=== PATIENT | male | born 1970 | race African-American/Black ===

== ENCOUNTER 2020-09-07 01:03 | Observation (INO) | payer MEDICAID ==
[~2020-09-07] VITALS: Ht 167.6 cm; Wt 96.5 kg
[2020-09-07] MEDS ORDERED: cloNIDine HCL 0.1 MG TAB ONE (01:36)
[2020-09-07] MEDS ORDERED: cloNIDine HCL 0.1 MG TAB PO ONE (02:00)
[2020-09-07 04:38] LABS: Basophils # (auto) 0 10 ^3/uL (0-0.2); Eosinophils # (auto) 0.3 10 ^3/uL (0-0.8); Monocytes # (auto) 0.7 10 ^3/uL (0-1.3); Neutrophils # (auto) 3.8 10 ^3/uL (1.6-8.6)
[2020-09-07 04:41] LABS: Urine Bacteria FEW /hpf (None Seen); Urine Blood 1+ /uL (Negative); Urine Hyaline Cast FEW /lpf (0 - 2); Urine WBC 1 /hpf (0 - 3)
[2020-09-07 04:42] LABS: Basophils % (auto) 0.5 % (0.0-2.0); Eosinophils % (auto) 4.5 % (0.0-7.0); Hematocrit 38.2 % (41.0-53.0); Hemoglobin 12.3 g/dL (13.5-17.5); Lymphocytes # (auto) 1.6 10 ^3/uL (0.4-5.4); Lymphocytes % (auto) 25.6 % (10.0-50.0); Mean Corpuscular Hgb Conc. 32.2 g/dL (32.0-36.0); Mean Corpuscular Volume 68.4 fL (80.0-100.0); Monocytes % (auto) 10.9 % (0.0-12.0); Neutrophils % (auto) 58.5 % (37.0-80.0); Nucleated Red Blood Cells % 0.1 %; Platelet Count (auto) 234 10^3/uL (140-450); Red Blood Cells 5.59 10^6/uL (4.5-5.90); Red Cell Distribution Width 17.7 % (11.8-14.3); White Blood Cell 6.4 10^3/uL (4.4-10.8)
[2020-09-07 04:58] LABS: Albumin 3.3 g/dL (3.4-5.0); BUN/Creatinine Ratio 14.4; Calcium 8.6 mg/dL (8.5-10.1)
[2020-09-07 04:59] LABS: INR 0.99 (0.9-1.15); Partial Thromboplastin Time 25.6 sec (23.0-31.2)
[2020-09-07 05:03] LABS: Bilirubin, Total 0.6 mg/dL (0.2-1.0); Total Protein 7.7 g/dL (6.4-8.2)
[2020-09-07 05:03] LABS: Alcohol, Urine < 3.0 mg/dL (0-10); Amphetamine Screen, Urine POSITIVE (NEGATIVE); Barbiturate Scree,Urine NEGATIVE (NEGATIVE); Benzodiazephine Screen, Urine NEGATIVE (NEGATIVE); Cannabinoid Screen, Urine NEGATIVE (NEGATIVE); Cocaine Screen, Urine NEGATIVE (NEGATIVE)
[2020-09-07 05:07] LABS: Potassium 2.7 mmol/L (3.5-5.1)
[2020-09-07 05:10] LABS: Opiate Scree,Urine NEGATIVE (NEGATIVE); Phencyclidine Screen, Urine NEGATIVE (NEGATIVE)
[2020-09-07] MEDS ORDERED: POTASSIUM EFFERVESENT TAB 25 MEQ PO ONE (05:15)
[2020-09-07] MEDS ORDERED: HYDROcodone-ACET 10/325MG TAB PO ONE (06:00)
[2020-09-07] MEDS ORDERED: FUROSEMIDE 20 MG/2 ML VIAL IV ONE (06:00)
[2020-09-07] MEDS ORDERED: ALLOPURINOL 300 MG TAB PO ONE (06:00)
[2020-09-07] MEDS ORDERED: ACETAMINOPHEN 325 MG TAB PO PRN (09:30)
[2020-09-07] MEDS ORDERED: NITROGLYCERIN 0.4 MG SL TAB SL PRN (09:30)
[2020-09-07] MEDS ORDERED: DOCUSATE SOD 100 MG CAP PO PRN (09:30)
[2020-09-07] MEDS ORDERED: HYDROcodone-ACET 5/325MG TAB PO PRN (09:30)
[2020-09-07] MEDS ORDERED: MORPHINE SULFATE 4 MG/ML SYR/VIAL IV PRN (09:30)
[2020-09-07] MEDS ORDERED: TEMAZEPAM 15 MG CAP PO PRN (09:30)
[2020-09-07] MEDS ORDERED: ONDANSETRON HCL 4 MG/2 ML VIAL IV PRN (09:30)
[2020-09-07] MEDS ORDERED: MORPHINE SULF INJ 2 MG/ML SYRINGE 1ML IV PRN (09:30)
[2020-09-07] MEDS ORDERED: ASPI81CH59 PO (09:36)
[2020-09-07] MEDS ORDERED: ATOR10TA52 PO (09:36)
[2020-09-07] MEDS ORDERED: FUR20T PO (09:36)
[2020-09-07] MEDS ORDERED: INDO25CA17 PO (09:36)
[2020-09-07] MEDS ORDERED: CARV6.2551 PO (09:36)
[2020-09-07] MEDS ORDERED: COLC1CAP PO (09:36)
[2020-09-07] MEDS ORDERED: LISI40TA11 PO (09:36)
[2020-09-07] MEDS ORDERED: AMLO5TAB15 PO (09:36)
[2020-09-07] MEDS ORDERED: ENOXAPARIN SOD 40 MG/0.4 ML SYRINGE SC SCH (10:00)
[2020-09-07] MEDS: FAMOTIDINE 20 MG TAB PO SCH ×2 (10:03→22:09)
[2020-09-07] MEDS ORDERED: POTASSIUM CHL 20 Meq TABLET PO ONE ×3 (11:30→21:30)
[2020-09-07] MEDS: HEPARIN DRIP/D5W 100UNITS/ML 250 ML IV SCH (11:30)
[2020-09-07 11:55] LABS: Basophils # (auto) 0 10 ^3/uL (0-0.2); Basophils % (auto) 0.8 % (0.0-2.0); Eosinophils # (auto) 0.4 10 ^3/uL (0-0.8); Lymphocytes # (auto) 1.8 10 ^3/uL (0.4-5.4); Monocytes # (auto) 0.6 10 ^3/uL (0-1.3)
[2020-09-07 12:01] LABS: Eosinophils % (auto) 6.5 % (0.0-7.0); Hematocrit 39.2 % (41.0-53.0); Hemoglobin 12.4 g/dL (13.5-17.5); Lymphocytes % (auto) 30.4 % (10.0-50.0); Mean Corpuscular Hemoglobin 21.6 pg (28.0-32.0); Mean Corpuscular Hgb Conc. 31.5 g/dL (32.0-36.0); Mean Corpuscular Volume 68.5 fL (80.0-100.0); Monocytes % (auto) 10.5 % (0.0-12.0); Neutrophils % (auto) 51.8 % (37.0-80.0); Nucleated Red Blood Cells % 0.1 %; Platelet Count (auto) 200 10^3/uL (140-450); Red Blood Cells 5.73 10^6/uL (4.5-5.90); Red Cell Distribution Width 17.8 % (11.8-14.3); White Blood Cell 5.8 10^3/uL (4.4-10.8)
[2020-09-07 12:14] LABS: INR 1.03 (0.9-1.15); Partial Thromboplastin Time 24.8 sec (23.0-31.2)
[2020-09-07] MEDS ORDERED: CARVEDILOL 3.125 MG TAB PO ONE (12:30)
--- NOTE | 2020-09-07 13:00 | NUR ---
Telemetry admit from ER TASHI SHEAER admitted to Telemetry unit after SBAR received. Patient oriented to JAM DREW RN primary RN, unit, room, bed, and unit policies regarding patient care and visiting hours. Patient now on continuous telemetry monitoring, tele box #60. Patient placed on bedside oxygen, weighed by bedscale and encouraged to call if they need something. All questions and concerns addressed, patient verbalized understanding.
[2020-09-07 17:00] VITALS: BP 158/75
[2020-09-07 17:18] LABS: Calcium 8.4 mg/dL (8.5-10.1)
[2020-09-07 17:20] LABS: BUN/Creatinine Ratio 14.3
[2020-09-07 17:23] LABS: Potassium 2.9 mmol/L (3.5-5.1)
[2020-09-07] MEDS: hydrALAZINE HCL 20 MG/ML VL IV PRN (17:40)
--- NOTE | 2020-09-07 18:00 | NUR ---
Call to Lab Call to Lab at this time. Scheduled PT/PTT for 1729 have not been drawn yet. Occupational Therapy Technician states she will notify web retailer.
--- NOTE | 2020-09-07 18:07 | NUR ---
Cardiology Consult Dr. Sharp called at this time regarding [place] consult. Dr. Sharp made aware of patient's presenting symptoms. Notified of patient's heparin drip and recent labs. New orders received. Read back and verified. Will implement.
[2020-09-07] MEDS ORDERED: ASPirin 325 MG TAB PO ONE (18:15)
--- NOTE | 2020-09-07 18:43 | NUR ---
Call from Pharmacy Call from pharmacy at this time. Pharmacist states that they close at 1930. Still waiting on PT/PTT lab values. Per pharmacist, RN has to take over heparin dosing per protocol. Will notify maintenance mechanic 2nd shift RN.
--- NOTE | 2020-09-07 19:00 | NUR ---
Closing Shift Note Patient resting in bed. No distress noted. Will endorse care to the hourly shift RN.
--- NOTE | 2020-09-07 19:02 | NUR ---
Opening Shift Note Assumed care of patient, awake and alert. No S/S of distress/SOB or pain. Bed in lowest locked position, side rails up x 2, call light within reach. Awaiting results of latest PT/PTT lab draw, will follow Heparin protocol as ordered. Instructed patient on POC and to call for assist PRN, will continue to monitor for changes Q1hr and PRN.
[2020-09-07 19:30] LABS: Partial Thromboplastin Time 28.8 sec (23.0-31.2)
[2020-09-07] MEDS ORDERED: HEPARIN SODIUM (PORCINE) 5000 UNITS/ML 1ML VIAL IV ONE (20:00)
--- NOTE | 2020-09-07 20:00 | NUR ---
Latest PT/PTT 28.8, per Heparin protocol administer 5,000 unit bolus and increase rate of Heparin drip by 3 ml/hr. Repeat PT/PTT lab draw ordered six hours after rate adjustment as per protocol, now ordered for 02:00 on 09/07/20. Will administer medications as ordered and continue to monitor patient. Addendum: 09/08/20 at 0539 by TARYN STERN RN RN CORRECTION: Date of lab draw 09/08/20.
[2020-09-07 22:00] VITALS: BP 145/100
[2020-09-07] MEDS: LISINOPRIL 20 MG TAB PO SCH (22:09)
[2020-09-07] MEDS: CARVEDILOL 3.125 MG TAB PO SCH (22:09)
--- NOTE | 2020-09-08 02:00 | NUR ---
Latest PT/PTT 41, per Heparin protocol increase rate of Heparin drip by 2 ml/hr. Heparin drip now running at 15 ml/hr. Repeat PT/PTT lab draw ordered six hours after rate adjustment as per protocol, now ordered for 08:00 on 09/08/20. Will administer medications as ordered and continue to monitor patient.
[2020-09-08 03:00] LABS: INR 1.01 (0.9-1.15); Partial Thromboplastin Time 41.1 sec (23.0-31.2)
[2020-09-08 05:00] VITALS: BP 156/92
[2020-09-08] MEDS: hydrALAZINE HCL 20 MG/ML VL IV PRN (06:27)
[2020-09-08 06:53] LABS: Calcium 8.5 mg/dL (8.5-10.1); Potassium 3.8 mmol/L (3.5-5.1)
[2020-09-08 06:55] LABS: Basophils # (auto) 0 10 ^3/uL (0-0.2); Eosinophils # (auto) 0.3 10 ^3/uL (0-0.8); Hematocrit 40.3 % (41.0-53.0); Lymphocytes # (auto) 1.5 10 ^3/uL (0.4-5.4); Mean Corpuscular Volume 68.3 fL (80.0-100.0); Monocytes # (auto) 0.5 10 ^3/uL (0-1.3); Nucleated Red Blood Cells % 0.1 %
[2020-09-08 06:58] LABS: Basophils % (auto) 0.6 % (0.0-2.0); Eosinophils % (auto) 5.1 % (0.0-7.0); Hemoglobin 12.7 g/dL (13.5-17.5); Lymphocytes % (auto) 23.8 % (10.0-50.0); Mean Corpuscular Hemoglobin 21.5 pg (28.0-32.0); Mean Corpuscular Hgb Conc. 31.4 g/dL (32.0-36.0); Monocytes % (auto) 8.4 % (0.0-12.0); Neutrophils % (auto) 62.1 % (37.0-80.0); Platelet Count (auto) 255 10^3/uL (140-450); Red Cell Distribution Width 17.8 % (11.8-14.3); White Blood Cell 6.5 10^3/uL (4.4-10.8)
--- NOTE | 2020-09-08 07:02 | NUR ---
Patient lying in bed, awake and alert. No s/s of distress. Call light within reach. Will endorse care to dayshift RN.
[2020-09-08 07:05] LABS: BUN/Creatinine Ratio 17.4; Bilirubin, Total 0.8 mg/dL (0.2-1.0); Total Protein 7.1 g/dL (6.4-8.2)
--- NOTE | 2020-09-08 08:19 | NUR ---
Spoke to he told me that he saw the patient and will be doing a Cardiac cath for patient tomorrow. He wants patient to be NPO at midnight, on aspirin 81mg daily PO and since patient is on an heparin drip to stop the heparin drip 1 hour before the procedure.
--- NOTE | 2020-09-08 08:33 | NUR ---
gave me the order for a chest xray for patient
--- NOTE | 2020-09-08 08:50 | NUR ---
Called lab to let themp know they have to come collect the APTT for patient. They said they will come
[2020-09-08 08:57] LABS: INR 1.02 (0.9-1.15)
[2020-09-08 09:00] VITALS: BP 105/96
--- NOTE | 2020-09-08 09:00 | NUR ---
Spoke to lab at 0800 to let them know that I cannot use the aptt drawn at 6:00am . That it was supposed to be drawn at 8:00am. Lab said that the person had draw the coagulation with the morning labs at 6:00am. That since I cannot use the 6:00am coagulation they will send another tech to draw the labs , that they are short staffed that is why no one has come yet.
[2020-09-08] MEDS: HEPARIN DRIP/D5W 100UNITS/ML 250 ML IV SCH (09:20)
[2020-09-08] MEDS: FAMOTIDINE 20 MG TAB PO SCH (09:26)
[2020-09-08] MEDS: LISINOPRIL 20 MG TAB PO SCH (09:26)
[2020-09-08] MEDS: CARVEDILOL 3.125 MG TAB PO SCH (09:26)
[2020-09-08] MEDS ORDERED: ASPirin 81 mg TAB PO SCH (10:00)
[2020-09-08 10:54] LABS: INR 1.03 (0.9-1.15); Partial Thromboplastin Time 42.5 sec (23.0-31.2)
--- NOTE | 2020-09-08 11:47 | NUR ---
The coagulation levels was drawn 1 hour ago and it is still pending. Waiting on result to titrate the heaprin drip per protocol
--- NOTE | 2020-09-08 12:17 | NUR ---
Pt is an alert and oriented male that resides with his family. Pt has no POA and states he functions independently. Pt uses no medical equipment and manages his own ADL's. SS consult regarding drug usage. Educated pt on risks of drug usage for his health and provided resources: Narcotics Anonymous, [facility], and [facility] walk in clinic. Pt verbalized understanding and accepted resources. Pt is pleasant and communicative. No further social service concerns or needs at this time. Addendum: 09/08/20 at 1219 by DYLON GUPTA Amended: Links added.
[2020-09-08 12:55] VITALS: BP 133/91
[2020-09-08 16:56] VITALS: BP 131/99
--- NOTE | 2020-09-08 17:50 | NUR ---
Patient left AMA , I educated the patient on all the risks of leaving against medical advice. Patient was on a heparin and was schedule for a cardiac cath in the morning. Patient still refuse to stay and said that he has a family emergency and he is concerned for his child that needs him right now. I notified that patient left AMA , charge was also notified. Patient tele box remove and sent to ICU . Patient IV also removed with catheter intact and pressure applied. Patient educated on multiple times but still refused to stay. I wheeled down the patient to his family members and the patient said he will be okay from there. Addendum: 09/09/20 at 0803 by ANGELA DALY RN RN Monica coombs RN helped with taking out the IV and tele box Addendum: 09/09/20 at 0816 by ANGELA DALY RN RN Patient signed AMA paper , verbalized understanding of the risks of leaving against medical advice. Patient has been educated and still refused to stay.
--- NOTE | 2020-09-08 18:00 | NUR ---
AMA Note RAHEL SHEA states they want to leave the hospital Against Medical Advice (AMA). Patient encouraged to stay for further treatment/stabilization. notified of patient's wishes. Patient advised of the risks and benefits of leaving AMA. Patient verbalized understanding. Patient encouraged to return to the ER if symptoms do not improve or worsen.
== END 2020-09-08 17:50 | disposition left against medical advice (07) ==
LOC: ER 01:03 → TELE 01:04 → TELE-WESTW 13:47
PROVIDERS: ADMIT Nurse Practitioner; ATTEND Internal Medicine
DX: I11.0 Hypertensive heart disease with heart failure (principal); I50.43 Acute on chronic combined systolic (congestive) and diastolic (congestive) heart failure; I21.4 Non-ST elevation (NSTEMI) myocardial infarction; R79.89 Other specified abnormal findings of blood chemistry; R40.0 Somnolence; I25.2 Old myocardial infarction; M10.9 Gout, unspecified; E66.9 Obesity, unspecified; F15.19 Other stimulant abuse with unspecified stimulant-induced disorder; F17.210 Nicotine dependence, cigarettes, uncomplicated; Z79.899 Other long term (current) drug therapy; Z68.34 Body mass index [BMI] 34.0-34.9, adult
CPT/HCPCS: 36415; 70450; 71045; 80048; 80053; 80307; 81001; 83735; 83880; 84484; 84550; 85025; 85610; 85730; 87081; 93005; 93306; 96365; 96366; 96372; 96375; 96376; 99285; G0378; J0360; J1644; J1650; J1940

== ENCOUNTER 2022-03-07 06:41 | Inpatient (IN) | payer MEDICAID ==
[~2022-03-07] VITALS: Ht 175.3 cm; Wt 98.3 kg
[2022-03-07] VITALS (7 sets, daily range): BP systolic 110–167; BP diastolic 66–120
[~2022-03-07 06:41] MED LIST: AMLO-489 PO; ASPI81CH59 PO; CARV6.2551 PO; COLC1CAP PO; FUR20T PO
[2022-03-07 09:21] LABS: Urine Bacteria NONE SEEN /hpf (None Seen); Urine Blood 1+ /uL (Negative); Urine Hyaline Cast FEW /lpf (0 - 2); Urine Specific Gravity 1.021 (1.001-1.035); Urine WBC 1 /hpf (0 - 3)
[2022-03-07 09:26] LABS: Basophils # (auto) 0 10 ^3/uL (0-0.2); Basophils % (auto) 0.8 % (0.0-2.0); Eosinophils # (auto) 0.2 10 ^3/uL (0-0.8); Eosinophils % (auto) 3.2 % (0.0-7.0); Hematocrit 40.2 % (41.0-53.0); Hemoglobin 13.1 g/dL (13.5-17.5); Lymphocytes # (auto) 1.7 10 ^3/uL (0.4-5.4); Lymphocytes % (auto) 27.4 % (10.0-50.0); Mean Corpuscular Hemoglobin 22.3 pg (28.0-32.0); Mean Corpuscular Hgb Conc. 32.5 g/dL (32.0-36.0); Mean Corpuscular Volume 68.6 fL (80.0-100.0); Monocytes # (auto) 0.4 10 ^3/uL (0-1.3); Neutrophils # (auto) 3.9 10 ^3/uL (1.6-8.6); Neutrophils % (auto) 61.6 % (37.0-80.0); Nucleated Red Blood Cells % 0.2 %; Red Blood Cells 5.86 10^6/uL (4.5-5.90); Red Cell Distribution Width 19.5 % (11.8-14.3); White Blood Cell 6.3 10^3/uL (4.4-10.8)
[2022-03-07 09:46] LABS: Albumin 2.9 g/dL (3.4-5.0); Calcium 8.6 mg/dL (8.5-10.1)
[2022-03-07 09:49] LABS: BUN/Creatinine Ratio 23.2; Bilirubin, Total 1.2 mg/dL (0.2-1.0); Total Protein 6.9 g/dL (6.4-8.2)
[2022-03-07] MEDS ORDERED: SODIUM CHLORIDE 0.9% 1,000 ML IV ONE (10:00)
[2022-03-07] MEDS ORDERED: LABETALOL HCL 5 MG/ML 4ML SYRINGE IV ONE (10:30)
[2022-03-07] MEDS ORDERED: FUROSEMIDE 40 MG/4 ML VIAL IV ONE (10:30)
[2022-03-07 10:33] LABS: Potassium 2.9 mmol/L (3.5-5.1)
[2022-03-07 11:06] LABS: INR 1.06 (0.9-1.15); Partial Thromboplastin Time 24.1 sec (23.6-33.0)
[2022-03-07] MEDS: POTASSIUM CHL 20MEQ/100ML 100 ML IV SCH ×3 (11:30→22:50)
[2022-03-07] MEDS ORDERED: POTASSIUM EFFERVESENT TAB 25 MEQ PO ONE ×2 (11:30→21:15)
[2022-03-07] MEDS ORDERED: LORazepam 2MG/ML-1ML VIAL IV ONE (14:30)
[2022-03-07] MEDS ORDERED: MORPHINE SULFATE INJECTION 2 MG/ML SYRG IV PRN (15:15)
[2022-03-07] MEDS ORDERED: NITROGLYCERIN 0.4 MG SL TAB SL PRN (15:15)
[2022-03-07] MEDS ORDERED: ENOXAPARIN SOD 80 MG/0.8ML SYRINGE SC ONE (15:30)
[2022-03-07] MEDS ORDERED: hydrALAZINE HCL 20 MG/ML VL IV ONE (15:45)
[2022-03-07] MEDS ORDERED: ASPirin-EC 325mg tab PO ONE (17:00)
[2022-03-07] MEDS ORDERED: hydrALAZINE HCL 20 MG/ML VL IV PRN (19:15)
[2022-03-07] MEDS ORDERED: ENOXAPARIN SOD 100 MG/1 ML SYRINGE SC SCH (22:00)
[2022-03-08] MEDS: POTASSIUM CHL 20MEQ/100ML 100 ML IV SCH (01:34)
[2022-03-08 03:58] LABS: Alcohol, Urine < 3.0 mg/dL (0-10); Amphetamine Screen, Urine POSITIVE (NEGATIVE); Barbiturate Scree,Urine NEGATIVE (NEGATIVE); Benzodiazephine Screen, Urine NEGATIVE (NEGATIVE); Cannabinoid Screen, Urine NEGATIVE (NEGATIVE); Cocaine Screen, Urine NEGATIVE (NEGATIVE); Opiate Scree,Urine NEGATIVE (NEGATIVE); Phencyclidine Screen, Urine NEGATIVE (NEGATIVE)
[2022-03-08] MEDS ORDERED: FUROSEMIDE 100 MG/10ML VIAL IV SCH (10:00)
[2022-03-08] MEDS ORDERED: ASPirin-EC 81 mg tab PO SCH (10:00)
== END 2022-03-08 04:45 | disposition left against medical advice (07) | DRG 190 ==
LOC: ER 06:41 → EDBD 06:41 → EDUNIT# 06:41 → TELE 15:05 → DOU IN ICU 18:23
PROVIDERS: ADMIT Internal Medicine; ATTEND Internal Medicine
DX: I21.4 Non-ST elevation (NSTEMI) myocardial infarction (principal); J96.01 Acute respiratory failure with hypoxia; I50.43 Acute on chronic combined systolic (congestive) and diastolic (congestive) heart failure; E44.0 Moderate protein-calorie malnutrition; I13.0 Hypertensive heart and chronic kidney disease with heart failure and stage 1 through stage 4 chronic kidney disease, or unspecified chronic kidney disease; I42.0 Dilated cardiomyopathy; R79.89 Other specified abnormal findings of blood chemistry; E87.6 Hypokalemia; Z53.29 Procedure and treatment not carried out because of patient's decision for other reasons; I25.10 Atherosclerotic heart disease of native coronary artery without angina pectoris; N18.31 Chronic kidney disease, stage 3a; Z20.822 Contact with and (suspected) exposure to COVID-19; Z86.73 Personal history of transient ischemic attack (TIA), and cerebral infarction without residual deficits; Z87.891 Personal history of nicotine dependence; Z91.14 Patient's other noncompliance with medication regimen; Z68.32 Body mass index [BMI] 32.0-32.9, adult
CPT/HCPCS: 36415; 71045; 71250; 74176; 80053; 80307; 81001; 83735; 83880; 84443; 84484; 85025; 85379; 85610; 85730; 93005; 93970; 96361; 96374; 96375; 99291; G0378; J3480; J3490

== ENCOUNTER 2022-03-26 08:07 | Inpatient (IN) | payer MEDICAID ==
[~2022-03-26] VITALS: Ht 172.7 cm; Wt 108.4 kg
[2022-03-26 09:24] LABS: Eosinophils # (auto) 0.3 10 ^3/uL (0-0.8); Eosinophils % (auto) 3.7 % (0.0-7.0); Hemoglobin 13.4 g/dL (13.5-17.5); Mean Corpuscular Hemoglobin 22.4 pg (28.0-32.0); Monocytes # (auto) 0.4 10 ^3/uL (0-1.3); Nucleated Red Blood Cells % 0.2 %; Red Blood Cells 5.99 10^6/uL (4.5-5.90); White Blood Cell 6.8 10^3/uL (4.4-10.8)
[2022-03-26 09:25] LABS: Basophils # (auto) 0.1 10 ^3/uL (0-0.2); Basophils % (auto) 0.9 % (0.0-2.0); Hematocrit 41.9 % (41.0-53.0); Lymphocytes % (auto) 15.3 % (10.0-50.0); Mean Corpuscular Hgb Conc. 32.1 g/dL (32.0-36.0); Neutrophils % (auto) 74.1 % (37.0-80.0); Red Cell Distribution Width 19.2 % (11.8-14.3)
[2022-03-26 09:33] LABS: Albumin 2.9 g/dL (3.4-5.0); Calcium 9.4 mg/dL (8.5-10.1); Magnesium 2.2 mg/dL (1.6-2.6); Potassium 3.3 mmol/L (3.5-5.1)
[2022-03-26 09:36] LABS: BUN/Creatinine Ratio 15.6; Bilirubin, Total 1.2 mg/dL (0.2-1.0); Total Protein 8.1 g/dL (6.4-8.2)
[2022-03-26 09:40] LABS: INR 1.05 (0.9-1.15)
[2022-03-26] MEDS ORDERED: IODIXANOL 320MG/ML 100ML BTL IV ONE (09:51)
[2022-03-26] MEDS ORDERED: SODIUM CHLORIDE 0.9% 500 ML IV ONE (10:00)
[2022-03-26] MEDS ORDERED: CLOPIDOGREL BISULFATE 75 MG TAB PO ONE (10:15)
[2022-03-26] MEDS ORDERED: ASPirin 81 mg TAB PO ONE (10:15)
[2022-03-26] MEDS ORDERED: HEPARIN SODIUM (PORCINE) 5000 UNITS/ML 1ML VIAL IV ONE (10:15)
[2022-03-26] MEDS ORDERED: ONDANSETRON HCL 4 MG/2 ML VIAL IV PRN (12:30)
[2022-03-26] MEDS ORDERED: NITROGLYCERIN 0.4 MG SL TAB SL PRN (12:30)
[2022-03-26] MEDS ORDERED: MORPHINE SULFATE INJ 2 MG/ml SYRG IV PRN ×2 (12:30)
[2022-03-26] MEDS ORDERED: POTASSIUM EFFERVESENT TAB 25 MEQ PO ONE (12:30)
[2022-03-26] MEDS ORDERED: ACETAMINOPHEN 325 MG TAB PO PRN (12:30)
[2022-03-26] MEDS ORDERED: ENOXAPARIN SOD 80 MG/0.8ML SYRINGE SC SCH (12:53)
[2022-03-26] MEDS: AZITHROMYCIN 500MG/ 250ML 250 ML IV SCH (16:47)
[2022-03-26] MEDS ORDERED: AML5T PO (21:15)
[2022-03-26] MEDS ORDERED: LISI40TA11 PO (21:15)
[2022-03-26] MEDS ORDERED: FURO40TA4 PO (21:15)
[2022-03-26] MEDS ORDERED: METO-289 PO (21:15)
[2022-03-26 22:00] VITALS: BP 178/134
[2022-03-26] MEDS ORDERED: PATIENTS OWN MEDICATION (Carvedilol 1 TAB) PO SCH (22:00)
[2022-03-26] MEDS ORDERED: FUROSEMIDE 40 MG/4 ML VIAL IV ONE (22:30)
[2022-03-27] MEDS: hydrALAZINE HCL 20 MG/ML VL IV PRN ×2 (00:04→08:45)
[2022-03-27] MEDS: ENOXAPARIN SOD 80 MG/0.8ML SYRINGE SC SCH ×3 (00:05→21:46)
[2022-03-27] MEDS: PIPERACILLIN-TAZOB 3.375GM 100 ML IV SCH ×4 (00:06→21:46)
[2022-03-27] MEDS: ASCORBIC ACID 500 MG TAB PO SCH ×3 (00:06→21:46)
[2022-03-27] MEDS ORDERED: guaiFENesin-DM 100/10mg/5ml SYR PO PRN (01:00)
[2022-03-27 05:00] VITALS: BP 157/119
[2022-03-27] MEDS ORDERED: POTASSIUM CHL 20 Meq TABLET PO ONE (05:30)
[2022-03-27 07:19] LABS: Eosinophils # (auto) 0.1 10 ^3/uL (0-0.8); Monocytes # (auto) 0.9 10 ^3/uL (0-1.3)
[2022-03-27 07:22] LABS: Potassium 3.1 mmol/L (3.5-5.1)
[2022-03-27 07:23] LABS: Basophils # (auto) 0.1 10 ^3/uL (0-0.2); Basophils % (auto) 0.9 % (0.0-2.0); Eosinophils % (auto) 1.6 % (0.0-7.0); Hematocrit 41.1 % (41.0-53.0); Hemoglobin 13.6 g/dL (13.5-17.5); Lymphocytes # (auto) 1.2 10 ^3/uL (0.4-5.4); Lymphocytes % (auto) 15.4 % (10.0-50.0); Mean Corpuscular Hgb Conc. 33.1 g/dL (32.0-36.0); Monocytes % (auto) 11.6 % (0.0-12.0); Neutrophils # (auto) 5.3 10 ^3/uL (1.6-8.6); Neutrophils % (auto) 70.5 % (37.0-80.0); Nucleated Red Blood Cells % 0.1 %; Red Cell Distribution Width 19.3 % (11.8-14.3); White Blood Cell 7.5 10^3/uL (4.4-10.8)
[2022-03-27 07:31] LABS: Albumin 2.9 g/dL (3.4-5.0); BUN/Creatinine Ratio 17.6; Bilirubin, Total 1.6 mg/dL (0.2-1.0); Calcium 9.1 mg/dL (8.5-10.1); Mean Corpuscular Hemoglobin 22.6 pg (28.0-32.0); Mean Corpuscular Volume 68.5 fL (80.0-100.0); Total Protein 7.9 g/dL (6.4-8.2)
[2022-03-27 08:53] VITALS: BP 186/118
[2022-03-27] MEDS: ZINC SULFATE 220mg CAP or TAB PO SCH (10:00)
[2022-03-27] MEDS: POTASSIUM CHL 20 Meq TABLET PO SCH (10:00)
[2022-03-27] MEDS: AZITHROMYCIN 500MG/ 250ML 250 ML IV SCH (10:00)
[2022-03-27] MEDS: amLODIPine BESYLATE 5 MG TAB PO SCH (10:00)
[2022-03-27] MEDS: FUROSEMIDE 20 MG/2 ML VIAL IV SCH ×2 (10:00→21:46)
[2022-03-27] MEDS: MULTIPLE VITAMIN TAB PO SCH (10:00)
[2022-03-27] MEDS: ALPRAZolam 0.5 MG TAB PO PRN (12:30)
[2022-03-27 12:41] VITALS: BP 160/98
[2022-03-27] MEDS: CARVEDILOL 3.125 MG TAB PO SCH ×2 (13:20→21:47)
[2022-03-27 14:16] LABS: Alcohol, Urine < 3.0 mg/dL (0-10); Amphetamine Screen, Urine NEGATIVE (NEGATIVE); Barbiturate Scree,Urine NEGATIVE (NEGATIVE); Benzodiazephine Screen, Urine NEGATIVE (NEGATIVE); Cannabinoid Screen, Urine NEGATIVE (NEGATIVE); Cocaine Screen, Urine NEGATIVE (NEGATIVE); Opiate Scree,Urine NEGATIVE (NEGATIVE); Phencyclidine Screen, Urine NEGATIVE (NEGATIVE)
[2022-03-27 16:59] VITALS: BP 142/111
[2022-03-27 22:00] VITALS: BP 176/107
[2022-03-28] MEDS: ALPRAZolam 0.5 MG TAB PO PRN ×2 (02:35→11:17)
[2022-03-28 05:00] VITALS: BP 195/108
[2022-03-28] MEDS: hydrALAZINE HCL 20 MG/ML VL IV PRN (05:09)
[2022-03-28] MEDS: PIPERACILLIN-TAZOB 3.375GM 100 ML IV SCH ×3 (05:53→21:34)
[2022-03-28 06:09] LABS: Potassium 3.5 mmol/L (3.5-5.1)
[2022-03-28 06:16] LABS: Albumin 2.5 g/dL (3.4-5.0); BUN/Creatinine Ratio 21.5; Bilirubin, Total 1.6 mg/dL (0.2-1.0); Calcium 8.7 mg/dL (8.5-10.1); Magnesium 2.2 mg/dL (1.6-2.6); Total Protein 7.4 g/dL (6.4-8.2)
[2022-03-28 09:02] VITALS: BP 165/93
[2022-03-28] MEDS: ENOXAPARIN SOD 80 MG/0.8ML SYRINGE SC SCH ×2 (10:00→21:33)
[2022-03-28] MEDS: AZITHROMYCIN 500MG/ 250ML 250 ML IV SCH (11:16)
[2022-03-28] MEDS: ASCORBIC ACID 500 MG TAB PO SCH ×2 (11:17→21:34)
[2022-03-28] MEDS: MULTIPLE VITAMIN TAB PO SCH (11:17)
[2022-03-28] MEDS: ZINC SULFATE 220mg CAP or TAB PO SCH (11:17)
[2022-03-28] MEDS: amLODIPine BESYLATE 5 MG TAB PO SCH (11:18)
[2022-03-28] MEDS: FUROSEMIDE 20 MG/2 ML VIAL IV SCH ×2 (11:18→21:33)
[2022-03-28] MEDS: CARVEDILOL 3.125 MG TAB PO SCH ×2 (11:19→21:33)
[2022-03-28] MEDS: POTASSIUM CHL 20 Meq TABLET PO SCH (11:19)
[2022-03-28] MEDS ORDERED: ALLOPURINOL 100 MG TAB PO ONE (11:30)
[2022-03-28 12:49] VITALS: BP_SYST 138; BP_SYST 152; BP_DIAS 101; BP_DIAS 52
[2022-03-28] MEDS: HYDROcodone-ACET 5/325MG TAB PO PRN ×2 (16:02→20:40)
[2022-03-28 17:00] VITALS: BP 159/114
[2022-03-28] MEDS: SACUBITRIL-VALSARTAN 24mg/26mg TAB PO SCH (21:34)
[2022-03-28] MEDS: ALLOPURINOL 100 MG TAB PO SCH (21:34)
[2022-03-28 22:00] VITALS: BP 134/101
[2022-03-29 05:00] VITALS: BP 141/108
[2022-03-29 05:14] LABS: Basophils # (auto) 0.1 10 ^3/uL (0-0.2); Eosinophils # (auto) 0.3 10 ^3/uL (0-0.8); Monocytes # (auto) 0.9 10 ^3/uL (0-1.3); Neutrophils # (auto) 5.1 10 ^3/uL (1.6-8.6); Nucleated Red Blood Cells % 0.3 %
[2022-03-29 05:25] LABS: Basophils % (auto) 0.9 % (0.0-2.0); Eosinophils % (auto) 4.4 % (0.0-7.0); Hematocrit 44.6 % (41.0-53.0); Hemoglobin 14.6 g/dL (13.5-17.5); Lymphocytes # (auto) 1.1 10 ^3/uL (0.4-5.4); Lymphocytes % (auto) 14.6 % (10.0-50.0); Mean Corpuscular Hemoglobin 22.3 pg (28.0-32.0); Mean Corpuscular Hgb Conc. 32.7 g/dL (32.0-36.0); Mean Corpuscular Volume 68.2 fL (80.0-100.0); Neutrophils % (auto) 68.1 % (37.0-80.0); Red Blood Cells 6.54 10^6/uL (4.5-5.90); Red Cell Distribution Width 19.5 % (11.8-14.3); White Blood Cell 7.5 10^3/uL (4.4-10.8)
[2022-03-29 05:29] LABS: Calcium 8.7 mg/dL (8.5-10.1); Potassium 3.8 mmol/L (3.5-5.1)
[2022-03-29 05:36] LABS: Albumin 2.5 g/dL (3.4-5.0); BUN/Creatinine Ratio 17.6; Magnesium 2.1 mg/dL (1.6-2.6); Total Protein 7.2 g/dL (6.4-8.2)
[2022-03-29] MEDS: PIPERACILLIN-TAZOB 3.375GM 100 ML IV SCH ×3 (06:14→21:37)
[2022-03-29] MEDS: HYDROcodone-ACET 5/325MG TAB PO PRN ×2 (08:18→21:37)
[2022-03-29 09:00] VITALS: BP 145/99
[2022-03-29] MEDS: MULTIPLE VITAMIN TAB PO SCH (09:25)
[2022-03-29] MEDS: POTASSIUM CHL 20 Meq TABLET PO SCH (09:25)
[2022-03-29] MEDS: SACUBITRIL-VALSARTAN 24mg/26mg TAB PO SCH ×2 (09:25→21:38)
[2022-03-29] MEDS: ZINC SULFATE 220mg CAP or TAB PO SCH (09:25)
[2022-03-29] MEDS: ASCORBIC ACID 500 MG TAB PO SCH ×2 (09:26→21:38)
[2022-03-29] MEDS: ALLOPURINOL 100 MG TAB PO SCH ×2 (09:27→21:38)
[2022-03-29] MEDS: CARVEDILOL 3.125 MG TAB PO SCH ×2 (09:27→21:37)
[2022-03-29] MEDS: AZITHROMYCIN 250 MG TAB PO SCH (09:27)
[2022-03-29] MEDS: ENOXAPARIN SOD 80 MG/0.8ML SYRINGE SC SCH ×2 (09:28→21:38)
[2022-03-29] MEDS: amLODIPine BESYLATE 5 MG TAB PO SCH (09:30)
[2022-03-29 14:00] VITALS: BP 150/100
[2022-03-29 17:00] VITALS: BP 133/104
[2022-03-29] MEDS: FUROSEMIDE 20 MG TAB PO SCH (18:10)
[2022-03-29] MEDS: hydrALAZINE HCL 20 MG/ML VL IV PRN (18:17)
[2022-03-29] MEDS: ALPRAZolam 0.5 MG TAB PO PRN (21:37)
[2022-03-29] MEDS: TEMAZEPAM 15 MG CAP PO PRN (21:37)
[2022-03-29 22:00] VITALS: BP_SYST 123; BP_SYST 129; BP_DIAS 78; BP_DIAS 89
[2022-03-30] VITALS (12 sets, daily range): BP systolic 127–173; BP diastolic 74–107
[2022-03-30] MEDS: PIPERACILLIN-TAZOB 3.375GM 100 ML IV SCH ×3 (05:41→21:07)
[2022-03-30] MEDS: HYDROcodone-ACET 5/325MG TAB PO PRN (05:42)
[2022-03-30] MEDS: FUROSEMIDE 20 MG TAB PO SCH ×2 (05:42→18:00)
[2022-03-30 06:33] LABS: Eosinophils # (auto) 0.2 10 ^3/uL (0-0.8)
[2022-03-30 06:37] LABS: Basophils # (auto) 0 10 ^3/uL (0-0.2); Basophils % (auto) 0.4 % (0.0-2.0); Hematocrit 45.6 % (41.0-53.0); Hemoglobin 14.9 g/dL (13.5-17.5); Lymphocytes # (auto) 1.9 10 ^3/uL (0.4-5.4); Lymphocytes % (auto) 21.3 % (10.0-50.0); Mean Corpuscular Hemoglobin 22.3 pg (28.0-32.0); Mean Corpuscular Hgb Conc. 32.7 g/dL (32.0-36.0); Mean Corpuscular Volume 68.1 fL (80.0-100.0); Monocytes % (auto) 11.6 % (0.0-12.0); Neutrophils # (auto) 5.7 10 ^3/uL (1.6-8.6); Neutrophils % (auto) 64.7 % (37.0-80.0); Nucleated Red Blood Cells % 0.2 %; Red Blood Cells 6.69 10^6/uL (4.5-5.90); Red Cell Distribution Width 19.5 % (11.8-14.3); White Blood Cell 8.9 10^3/uL (4.4-10.8)
[2022-03-30 06:55] LABS: Albumin 2.4 g/dL (3.4-5.0); Calcium 8.9 mg/dL (8.5-10.1); Magnesium 2.4 mg/dL (1.6-2.6); Potassium 3.9 mmol/L (3.5-5.1)
[2022-03-30 07:00] LABS: BUN/Creatinine Ratio 14.6; Total Protein 7.3 g/dL (6.4-8.2)
[2022-03-30] MEDS: ZINC SULFATE 220mg CAP or TAB PO SCH (09:45)
[2022-03-30] MEDS: POTASSIUM CHL 20 Meq TABLET PO SCH (09:48)
[2022-03-30] MEDS: MULTIPLE VITAMIN TAB PO SCH (09:48)
[2022-03-30] MEDS: ALLOPURINOL 100 MG TAB PO SCH ×2 (09:49→21:46)
[2022-03-30] MEDS: ASCORBIC ACID 500 MG TAB PO SCH ×2 (09:49→21:46)
[2022-03-30] MEDS: AZITHROMYCIN 250 MG TAB PO SCH (09:49)
[2022-03-30] MEDS: ENOXAPARIN SOD 80 MG/0.8ML SYRINGE SC SCH ×2 (09:49→21:07)
[2022-03-30] MEDS: SACUBITRIL-VALSARTAN 24mg/26mg TAB PO SCH ×2 (09:50→21:46)
[2022-03-30] MEDS: CARVEDILOL 3.125 MG TAB PO SCH ×2 (11:26→21:47)
[2022-03-30] MEDS: amLODIPine BESYLATE 5 MG TAB PO SCH (11:27)
[2022-03-30] MEDS: ALPRAZolam 0.5 MG TAB PO PRN ×2 (15:44→21:46)
[2022-03-30] MEDS ORDERED: ANGIOMAX 250 MG VIAL IV ONE (18:17)
[2022-03-30] MEDS ORDERED: fentaNYL CITRATE 100 MCG/2 ML VL ONE (18:18)
[2022-03-30] MEDS ORDERED: SODIUM CHL 0.9% 0 ML ONE (18:18)
[2022-03-30] MEDS ORDERED: HEPARIN SODIUM (PORCINE) 5000 UNITS/ML 1ML VIAL ONE (18:18)
[2022-03-30] MEDS ORDERED: VERAPAMIL 2.5MG/ML INJ 2ML VIAL IV ONE (18:18)
[2022-03-30] MEDS ORDERED: MIDAZOLAM HCL 2MG/2ML 2ml VIAL (1mg/ml) ONE (18:18)
[2022-03-30] MEDS ORDERED: LIDOCAINE 2%HCL (LOCAL ANESTH.) INJ 10ml MDV ONE (18:19)
[2022-03-30] MEDS: hydrALAZINE HCL 20 MG/ML VL IV PRN (21:05)
[2022-03-30] MEDS: TEMAZEPAM 15 MG CAP PO PRN (21:46)
[2022-03-31 00:30] VITALS: BP 149/74
[2022-03-31 04:57] VITALS: BP 128/66
[2022-03-31] MEDS: FUROSEMIDE 20 MG TAB PO SCH ×2 (05:39→17:43)
[2022-03-31] MEDS: PIPERACILLIN-TAZOB 3.375GM 100 ML IV SCH ×3 (05:39→21:09)
[2022-03-31 09:05] VITALS: BP 132/89
[2022-03-31] MEDS: ZINC SULFATE 220mg CAP or TAB PO SCH (09:20)
[2022-03-31] MEDS: CARVEDILOL 3.125 MG TAB PO SCH ×2 (09:20→21:13)
[2022-03-31] MEDS: POTASSIUM CHL 20 Meq TABLET PO SCH (09:21)
[2022-03-31] MEDS: MULTIPLE VITAMIN TAB PO SCH (09:21)
[2022-03-31] MEDS: SACUBITRIL-VALSARTAN 24mg/26mg TAB PO SCH ×2 (09:21→21:09)
[2022-03-31] MEDS: ENOXAPARIN SOD 80 MG/0.8ML SYRINGE SC SCH ×2 (09:22→21:08)
[2022-03-31] MEDS: ALLOPURINOL 100 MG TAB PO SCH ×2 (09:22→21:08)
[2022-03-31] MEDS: AZITHROMYCIN 250 MG TAB PO SCH (09:22)
[2022-03-31] MEDS: ASCORBIC ACID 500 MG TAB PO SCH ×2 (09:22→21:08)
[2022-03-31] MEDS: amLODIPine BESYLATE 5 MG TAB PO SCH (09:22)
[2022-03-31 12:30] VITALS: BP 136/86
[2022-03-31] MEDS: HYDROcodone-ACET 5/325MG TAB PO PRN (15:47)
[2022-03-31 17:04] VITALS: BP 153/85
[2022-03-31 22:00] VITALS: BP 139/90
[2022-04-01 05:00] VITALS: BP 151/93
[2022-04-01] MEDS: FUROSEMIDE 20 MG TAB PO SCH ×2 (05:15→16:58)
[2022-04-01] MEDS: PIPERACILLIN-TAZOB 3.375GM 100 ML IV SCH ×3 (05:15→21:49)
[2022-04-01 09:00] VITALS: BP 148/112
[2022-04-01] MEDS: ZINC SULFATE 220mg CAP or TAB PO SCH (09:47)
[2022-04-01] MEDS: amLODIPine BESYLATE 5 MG TAB PO SCH (09:48)
[2022-04-01] MEDS: AZITHROMYCIN 250 MG TAB PO SCH (09:48)
[2022-04-01] MEDS: MULTIPLE VITAMIN TAB PO SCH (09:48)
[2022-04-01] MEDS: CARVEDILOL 3.125 MG TAB PO SCH ×2 (09:48→21:50)
[2022-04-01] MEDS: SACUBITRIL-VALSARTAN 24mg/26mg TAB PO SCH ×2 (09:48→20:53)
[2022-04-01] MEDS: POTASSIUM CHL 20 Meq TABLET PO SCH (09:48)
[2022-04-01] MEDS: ALLOPURINOL 100 MG TAB PO SCH ×2 (09:48→20:54)
[2022-04-01] MEDS: ASCORBIC ACID 500 MG TAB PO SCH ×2 (09:48→20:54)
[2022-04-01] MEDS: ENOXAPARIN SOD 80 MG/0.8ML SYRINGE SC SCH ×2 (09:48→21:50)
[2022-04-01] MEDS: HYDROcodone-ACET 5/325MG TAB PO PRN ×3 (10:30→23:08)
[2022-04-01] MEDS ORDERED: SACUBITRIL-VALSARTAN 24mg/26mg TAB PO ONE (11:30)
[2022-04-01 13:00] VITALS: BP 157/96
[2022-04-01 17:08] VITALS: BP 141/95
[2022-04-01] MEDS ORDERED: SACU1TAB PO (18:30)
[2022-04-01] MEDS: predniSONE 20 MG TAB PO SCH (20:54)
[2022-04-01 22:00] VITALS: BP 143/97
[2022-04-01] MEDS: TEMAZEPAM 15 MG CAP PO PRN (23:07)
[2022-04-02] VITALS (8 sets, daily range): BP systolic 136–178; BP diastolic 82–106
[2022-04-02] MEDS: PIPERACILLIN-TAZOB 3.375GM 100 ML IV SCH ×3 (06:07→21:57)
[2022-04-02] MEDS: FUROSEMIDE 20 MG TAB PO SCH ×2 (06:07→17:33)
[2022-04-02] MEDS: predniSONE 20 MG TAB PO SCH (09:50)
[2022-04-02] MEDS: ZINC SULFATE 220mg CAP or TAB PO SCH (09:51)
[2022-04-02] MEDS: CARVEDILOL 3.125 MG TAB PO SCH ×2 (09:52→21:56)
[2022-04-02] MEDS: SACUBITRIL-VALSARTAN 24mg/26mg TAB PO SCH ×2 (09:52→21:56)
[2022-04-02] MEDS: POTASSIUM CHL 20 Meq TABLET PO SCH (09:52)
[2022-04-02] MEDS: MULTIPLE VITAMIN TAB PO SCH (09:53)
[2022-04-02] MEDS: amLODIPine BESYLATE 5 MG TAB PO SCH (09:53)
[2022-04-02] MEDS: ENOXAPARIN SOD 80 MG/0.8ML SYRINGE SC SCH ×2 (09:54→21:55)
[2022-04-02] MEDS: ASCORBIC ACID 500 MG TAB PO SCH ×2 (09:54→21:56)
[2022-04-02] MEDS: ALLOPURINOL 100 MG TAB PO SCH ×2 (09:54→21:55)
[2022-04-02] MEDS ORDERED: LIDOCAINE 2%HCL (LOCAL ANESTH.) INJ 10ml MDV ONE ×2 (14:04→14:47)
[2022-04-02] MEDS ORDERED: fentaNYL CITRATE 100 MCG/2 ML VL ONE (14:12)
[2022-04-02] MEDS ORDERED: VANCOMYCIN HCL 1000 MG VL ONE (14:12)
[2022-04-02] MEDS ORDERED: MIDAZOLAM HCL 2MG/2ML 2ml VIAL (1mg/ml) ONE (14:12)
[2022-04-02] MEDS ORDERED: IOHEXOL 350 MG/ML 100ML IJ ONE (14:16)
[2022-04-02] MEDS ORDERED: HYDROcodone-ACET 5/325MG TAB PO PRN (15:45)
[2022-04-02] MEDS: HYDROcodone-ACET 5/325MG TAB PO PRN (20:57)
[2022-04-02] MEDS: TEMAZEPAM 15 MG CAP PO PRN (23:01)
[2022-04-03] MEDS: HYDROcodone-ACET 5/325MG TAB PO PRN (04:44)
[2022-04-03 05:00] VITALS: BP 125/81
[2022-04-03] MEDS: PIPERACILLIN-TAZOB 3.375GM 100 ML IV SCH ×3 (05:25→21:17)
[2022-04-03] MEDS: FUROSEMIDE 20 MG TAB PO SCH ×2 (05:26→18:00)
[2022-04-03] MEDS ORDERED: VANCOMYCIN 1GM/250ML 250 ML IV SCH (06:00)
[2022-04-03 09:00] VITALS: BP 153/97
[2022-04-03] MEDS: ZINC SULFATE 220mg CAP or TAB PO SCH (10:21)
[2022-04-03] MEDS: predniSONE 20 MG TAB PO SCH (10:21)
[2022-04-03] MEDS: SACUBITRIL-VALSARTAN 24mg/26mg TAB PO SCH ×2 (10:22→21:18)
[2022-04-03] MEDS: ASCORBIC ACID 500 MG TAB PO SCH ×2 (10:22→21:18)
[2022-04-03] MEDS: MULTIPLE VITAMIN TAB PO SCH (10:22)
[2022-04-03] MEDS: ENOXAPARIN SOD 80 MG/0.8ML SYRINGE SC SCH ×2 (10:22→21:19)
[2022-04-03] MEDS: amLODIPine BESYLATE 5 MG TAB PO SCH (10:22)
[2022-04-03] MEDS: POTASSIUM CHL 20 Meq TABLET PO SCH (10:22)
[2022-04-03] MEDS: ALLOPURINOL 100 MG TAB PO SCH ×2 (10:22→21:19)
[2022-04-03] MEDS: CARVEDILOL 3.125 MG TAB PO SCH ×2 (10:22→21:18)
[2022-04-03 12:38] VITALS: BP 135/77
[2022-04-03 13:00] VITALS: BP 131/73
[2022-04-03] MEDS: ALPRAZolam 0.5 MG TAB PO PRN ×2 (15:24→23:32)
[2022-04-03 16:46] VITALS: BP 137/94
[2022-04-03 21:54] VITALS: BP 153/87
[2022-04-04] MEDS: HYDROcodone-ACET 5/325MG TAB PO PRN ×2 (04:43→11:06)
[2022-04-04 05:00] VITALS: BP 148/95
[2022-04-04] MEDS: PIPERACILLIN-TAZOB 3.375GM 100 ML IV SCH ×2 (05:21→14:34)
[2022-04-04] MEDS: FUROSEMIDE 20 MG TAB PO SCH ×2 (05:22→18:20)
[2022-04-04 07:22] VITALS: BP 157/109
[2022-04-04] MEDS: POTASSIUM CHL 20 Meq TABLET PO SCH (10:56)
[2022-04-04] MEDS: predniSONE 20 MG TAB PO SCH (10:56)
[2022-04-04] MEDS: ZINC SULFATE 220mg CAP or TAB PO SCH (10:56)
[2022-04-04] MEDS: MULTIPLE VITAMIN TAB PO SCH (10:56)
[2022-04-04] MEDS: ENOXAPARIN SOD 80 MG/0.8ML SYRINGE SC SCH (10:57)
[2022-04-04] MEDS: ALLOPURINOL 100 MG TAB PO SCH (10:57)
[2022-04-04] MEDS: amLODIPine BESYLATE 5 MG TAB PO SCH (10:57)
[2022-04-04] MEDS: ASCORBIC ACID 500 MG TAB PO SCH (10:57)
[2022-04-04] MEDS: SACUBITRIL-VALSARTAN 24mg/26mg TAB PO SCH (10:58)
[2022-04-04] MEDS: CARVEDILOL 3.125 MG TAB PO SCH (10:58)
[2022-04-04 17:00] VITALS: BP 136/89
[2022-04-04] MEDS ORDERED: FUR20T PO (17:41)
[2022-04-04] MEDS ORDERED: CAR3125T PO (17:41)
[2022-04-04] MEDS ORDERED: SACU1TAB7 PO (17:49)
== END 2022-04-04 19:00 | disposition home or self-care (01) | DRG 179 ==
LOC: EDBD 08:07 → ER 08:07 → EDUNIT# 08:07 → TELE 12:29 → TELE-CENTR 20:15
PROVIDERS: ADMIT Internal Medicine; ATTEND Internal Medicine
PROC: 4A023N7 Measurement of Cardiac Sampling and Pressure, Left Heart, Percutaneous Approach (ICD-10-PCS; principal; 2022-03-30)
PROC: B2111ZZ Fluoroscopy of Multiple Coronary Arteries using Low Osmolar Contrast (ICD-10-PCS; 2022-03-30)
PROC: 0JH609Z Insertion of Cardiac Resynchronization Defibrillator Pulse Generator into Chest Subcutaneous Tissue and Fascia, Open Approach (ICD-10-PCS; 2022-04-02)
PROC: 02H63KZ Insertion of Defibrillator Lead into Right Atrium, Percutaneous Approach (ICD-10-PCS; 2022-04-02)
PROC: 02HL3KZ Insertion of Defibrillator Lead into Left Ventricle, Percutaneous Approach (ICD-10-PCS; 2022-04-02)
PROC: 02HK3KZ Insertion of Defibrillator Lead into Right Ventricle, Percutaneous Approach (ICD-10-PCS; 2022-04-02)
DX: I21.4 Non-ST elevation (NSTEMI) myocardial infarction (principal); J96.00 Acute respiratory failure, unspecified whether with hypoxia or hypercapnia; I50.23 Acute on chronic systolic (congestive) heart failure; J18.9 Pneumonia, unspecified organism; I42.0 Dilated cardiomyopathy; J44.0 Chronic obstructive pulmonary disease with (acute) lower respiratory infection; E87.6 Hypokalemia; G47.33 Obstructive sleep apnea (adult) (pediatric); J98.11 Atelectasis; M10.9 Gout, unspecified; Z20.822 Contact with and (suspected) exposure to COVID-19; N28.9 Disorder of kidney and ureter, unspecified; E66.01 Morbid (severe) obesity due to excess calories; I25.10 Atherosclerotic heart disease of native coronary artery without angina pectoris; Z86.73 Personal history of transient ischemic attack (TIA), and cerebral infarction without residual deficits; Z87.891 Personal history of nicotine dependence; Z79.899 Other long term (current) drug therapy; Z95.810 Presence of automatic (implantable) cardiac defibrillator; Z68.34 Body mass index [BMI] 34.0-34.9, adult; I25.2 Old myocardial infarction
CPT/HCPCS: 36415; 71045; 71275; 80053; 80307; 83735; 83880; 84484; 84550; 85025; 85379; 85610; 85730; 87081; 93005; 93306; 96361; 96365; 96366; 96372; 96375; 99152; 99153; 99291; C1882; G0378; J2001; J2250; J2543; Q9967

== ENCOUNTER 2022-04-19 21:34 | Inpatient (IN) | payer MEDICAID ==
[~2022-04-19] VITALS: Ht 172.7 cm; Wt 98.9 kg
[~2022-04-19 21:34] MED LIST changes: -ASPI81CH59 PO; +CAR3125T PO; +FURO40TA4 PO; +SACU1TAB PO; +SACU1TAB7 PO
[2022-04-19 22:00] VITALS: BP 157/91
[2022-04-19] MEDS ORDERED: LABETALOL HCL 5 MG/ML 4ML SYRINGE IV ONE (22:00)
[2022-04-19 23:00] LABS: Albumin 3.1 g/dL (3.4-5.0); BUN/Creatinine Ratio 18.4; Calcium 8.2 mg/dL (8.5-10.1)
[2022-04-19 23:03] LABS: Bilirubin, Total 1.3 mg/dL (0.2-1.0); Total Protein 7.5 g/dL (6.4-8.2)
[2022-04-19 23:07] LABS: Urine Bacteria NONE SEEN /hpf (None Seen); Urine Blood 1+ /uL (Negative); Urine Specific Gravity 1.022 (1.001-1.035); Urine WBC 4 /hpf (0 - 3)
[2022-04-19 23:10] LABS: Eosinophils # (auto) 0.4 10 ^3/uL (0-0.8); Hemoglobin 12.1 g/dL (13.5-17.5); Mean Corpuscular Hemoglobin 22.2 pg (28.0-32.0); White Blood Cell 5.8 10^3/uL (4.4-10.8)
[2022-04-19 23:12] LABS: Basophils # (auto) 0 10 ^3/uL (0-0.2); Basophils % (auto) 0.5 % (0.0-2.0); Eosinophils % (auto) 6.4 % (0.0-7.0); Hematocrit 37.9 % (41.0-53.0); Lymphocytes # (auto) 0.9 10 ^3/uL (0.4-5.4); Lymphocytes % (auto) 15.3 % (10.0-50.0); Mean Corpuscular Volume 69.3 fL (80.0-100.0); Monocytes # (auto) 0.4 10 ^3/uL (0-1.3); Monocytes % (auto) 6.7 % (0.0-12.0); Neutrophils # (auto) 4.1 10 ^3/uL (1.6-8.6); Neutrophils % (auto) 71.1 % (37.0-80.0); Nucleated Red Blood Cells % 0.3 %; Red Blood Cells 5.47 10^6/uL (4.5-5.90); Red Cell Distribution Width 18.9 % (11.8-14.3)
[2022-04-19 23:26] LABS: Potassium 2.8 mmol/L (3.5-5.1)
[2022-04-20] MEDS ORDERED: POTASSIUM EFFERVESENT TAB 25 MEQ PO ONE (00:15)
[2022-04-20] MEDS ORDERED: FUROSEMIDE 40 MG/4 ML VIAL IV ONE (00:15)
[2022-04-20] MEDS ORDERED: ONDANSETRON HCL 4 MG/2 ML VIAL IV PRN (00:30)
[2022-04-20] MEDS ORDERED: ACETAMINOPHEN 325 MG TAB PO PRN (00:30)
[2022-04-20] MEDS ORDERED: MORPHINE SULFATE INJ 2 MG/ml SYRG IV PRN ×2 (00:30)
[2022-04-20] MEDS ORDERED: NITROGLYCERIN 0.4 MG SL TAB SL PRN (00:30)
[2022-04-20] MEDS ORDERED: POTASSIUM EFFERVESENT TAB 25 MEQ ONE (00:32)
[2022-04-20] MEDS ORDERED: FUROSEMIDE 40 MG/4 ML VIAL IV SCH (06:00)
[2022-04-20 08:23] LABS: Basophils # (auto) 0 10 ^3/uL (0-0.2); Lymphocytes # (auto) 0.9 10 ^3/uL (0.4-5.4); Mean Corpuscular Hemoglobin 21.9 pg (28.0-32.0)
[2022-04-20 08:25] LABS: Basophils % (auto) 0.6 % (0.0-2.0); Eosinophils # (auto) 0.4 10 ^3/uL (0-0.8); Eosinophils % (auto) 7.6 % (0.0-7.0); Hematocrit 36.3 % (41.0-53.0); Hemoglobin 11.4 g/dL (13.5-17.5); Lymphocytes % (auto) 20.1 % (10.0-50.0); Mean Corpuscular Hgb Conc. 31.5 g/dL (32.0-36.0); Mean Corpuscular Volume 69.3 fL (80.0-100.0); Monocytes # (auto) 0.3 10 ^3/uL (0-1.3); Monocytes % (auto) 6.5 % (0.0-12.0); Neutrophils # (auto) 3.1 10 ^3/uL (1.6-8.6); Neutrophils % (auto) 65.2 % (37.0-80.0); Nucleated Red Blood Cells % 0.5 %; Red Blood Cells 5.23 10^6/uL (4.5-5.90); Red Cell Distribution Width 19.2 % (11.8-14.3); White Blood Cell 4.7 10^3/uL (4.4-10.8)
[2022-04-20 08:37] LABS: Albumin 2.8 g/dL (3.4-5.0); Calcium 8.1 mg/dL (8.5-10.1)
[2022-04-20 08:41] LABS: BUN/Creatinine Ratio 19.3; Bilirubin, Total 1.2 mg/dL (0.2-1.0); Total Protein 7.2 g/dL (6.4-8.2)
[2022-04-20 08:45] LABS: Alcohol, Urine < 3.0 mg/dL (0-10); Amphetamine Screen, Urine POSITIVE (NEGATIVE); Barbiturate Scree,Urine NEGATIVE (NEGATIVE); Benzodiazephine Screen, Urine NEGATIVE (NEGATIVE); Cannabinoid Screen, Urine NEGATIVE (NEGATIVE); Cocaine Screen, Urine NEGATIVE (NEGATIVE); Opiate Scree,Urine NEGATIVE (NEGATIVE); Phencyclidine Screen, Urine NEGATIVE (NEGATIVE)
[2022-04-20 08:57] LABS: Potassium 2.9 mmol/L (3.5-5.1)
[2022-04-20] MEDS ORDERED: POTASSIUM CHL 20 Meq TABLET PO ONE ×2 (09:45→13:00)
[2022-04-20] MEDS: POTASSIUM CHL 20MEQ/100ML 100 ML IV SCH ×2 (09:56→11:56)
[2022-04-20] MEDS: ZINC SULFATE 220mg CAP or TAB PO SCH (09:59)
[2022-04-20] MEDS: CARVEDILOL 3.125 MG TAB PO SCH ×2 (10:00→20:43)
[2022-04-20] MEDS: MULTIPLE VITAMIN TAB PO SCH (10:00)
[2022-04-20] MEDS: ASCORBIC ACID 500 MG TAB PO SCH ×2 (10:00→20:42)
[2022-04-20] MEDS: ENOXAPARIN SOD 40 MG/0.4 ML SYRINGE SC SCH (10:01)
[2022-04-20] MEDS: PANTOPRAZOLE 40 MG TAB PO SCH (10:37)
[2022-04-20] MEDS: SACUBITRIL-VALSARTAN 24mg/26mg TAB PO SCH ×2 (10:37→20:41)
[2022-04-20] MEDS: amLODIPine BESYLATE 5 MG TAB PO SCH (10:38)
[2022-04-20] MEDS: DOXYCYCLINE 100MG/250ML 250 ML IV SCH (13:55)
[2022-04-20] MEDS: FUROSEMIDE 100 MG/10ML VIAL IV SCH (18:43)
[2022-04-20 20:00] VITALS: BP 157/91
[2022-04-20] MEDS: ATORVASTATIN 20 MG TAB PO SCH (20:42)
[2022-04-20 22:00] VITALS: BP 157/91
[2022-04-21] VITALS (8 sets, daily range): BP systolic 132–178; BP diastolic 81–131
[2022-04-21] MEDS: DOXYCYCLINE 100MG/250ML 250 ML IV SCH ×3 (00:11→23:51)
[2022-04-21] MEDS: FUROSEMIDE 100 MG/10ML VIAL IV SCH ×2 (06:00→22:00)
[2022-04-21 06:17] LABS: Hemoglobin 13.5 g/dL (13.5-17.5); Nucleated Red Blood Cells % 0.3 %; White Blood Cell 5.4 10^3/uL (4.4-10.8)
[2022-04-21 06:20] LABS: Basophils # (auto) 0.3 10 ^3/uL (0-0.2); Basophils % (auto) 4.9 % (0.0-2.0); Eosinophils # (auto) 0.6 10 ^3/uL (0-0.8); Eosinophils % (auto) 10.8 % (0.0-7.0); Hematocrit 42.7 % (41.0-53.0); Lymphocytes # (auto) 1.1 10 ^3/uL (0.4-5.4); Lymphocytes % (auto) 19.8 % (10.0-50.0); Mean Corpuscular Hemoglobin 22.1 pg (28.0-32.0); Mean Corpuscular Hgb Conc. 31.7 g/dL (32.0-36.0); Monocytes # (auto) 0.3 10 ^3/uL (0-1.3); Monocytes % (auto) 6.4 % (0.0-12.0); Neutrophils # (auto) 3.1 10 ^3/uL (1.6-8.6); Neutrophils % (auto) 58.1 % (37.0-80.0); Red Blood Cells 6.13 10^6/uL (4.5-5.90); Red Cell Distribution Width 19.7 % (11.8-14.3)
[2022-04-21 06:28] LABS: Mean Corpuscular Volume 69.6 fL (80.0-100.0)
[2022-04-21 06:35] LABS: Albumin 2.7 g/dL (3.4-5.0); BUN/Creatinine Ratio 18.1; Calcium 8.4 mg/dL (8.5-10.1); Magnesium 1.7 mg/dL (1.6-2.6); Potassium 3.1 mmol/L (3.5-5.1)
[2022-04-21 06:38] LABS: Bilirubin, Total 1.6 mg/dL (0.2-1.0); Total Protein 7.2 g/dL (6.4-8.2)
[2022-04-21] MEDS ORDERED: POTASSIUM CHL 20 Meq TABLET PO ONE ×2 (08:00→16:00)
[2022-04-21] MEDS: ZINC SULFATE 220mg CAP or TAB PO SCH (10:32)
[2022-04-21] MEDS: MULTIPLE VITAMIN TAB PO SCH (10:34)
[2022-04-21] MEDS: CARVEDILOL 3.125 MG TAB PO SCH ×2 (10:34→22:04)
[2022-04-21] MEDS: SACUBITRIL-VALSARTAN 24mg/26mg TAB PO SCH ×2 (10:34→22:15)
[2022-04-21] MEDS: amLODIPine BESYLATE 5 MG TAB PO SCH (10:35)
[2022-04-21] MEDS: ENOXAPARIN SOD 40 MG/0.4 ML SYRINGE SC SCH (10:35)
[2022-04-21] MEDS: ASCORBIC ACID 500 MG TAB PO SCH ×2 (10:35→22:04)
[2022-04-21] MEDS: PANTOPRAZOLE 40 MG TAB PO SCH (10:35)
[2022-04-21] MEDS ORDERED: hydrALAZINE HCL 20 MG/ML VL IV PRN (13:30)
[2022-04-21] MEDS: ATORVASTATIN 20 MG TAB PO SCH (22:14)
[2022-04-21] MEDS: HYDROcodone-ACET 5/325MG TAB PO PRN (22:15)
[2022-04-22] MEDS: HYDROcodone-ACET 5/325MG TAB PO PRN ×4 (03:42→21:56)
[2022-04-22 04:51] VITALS: BP 145/94
[2022-04-22 05:44] LABS: Potassium 3.3 mmol/L (3.5-5.1)
[2022-04-22 05:49] LABS: Albumin 2.8 g/dL (3.4-5.0); BUN/Creatinine Ratio 17.8; Calcium 8.7 mg/dL (8.5-10.1)
[2022-04-22] MEDS: FUROSEMIDE 100 MG/10ML VIAL IV SCH ×2 (05:50→17:56)
[2022-04-22 05:56] LABS: Bilirubin, Total 1.3 mg/dL (0.2-1.0); Phosphorus 2.7 mg/dL (2.5-4.90); Total Protein 7.4 g/dL (6.4-8.2)
[2022-04-22 08:00] VITALS: BP 160/120
[2022-04-22 08:55] VITALS: BP 160/120
[2022-04-22] MEDS: ZINC SULFATE 220mg CAP or TAB PO SCH (09:26)
[2022-04-22] MEDS: PANTOPRAZOLE 40 MG TAB PO SCH (09:27)
[2022-04-22] MEDS: ASCORBIC ACID 500 MG TAB PO SCH ×2 (09:27→21:45)
[2022-04-22] MEDS: MULTIPLE VITAMIN TAB PO SCH (09:27)
[2022-04-22] MEDS: CARVEDILOL 12.5 MG TAB PO SCH ×2 (09:27→21:46)
[2022-04-22] MEDS: POTASSIUM CHL 20 Meq TABLET PO SCH (09:28)
[2022-04-22] MEDS: amLODIPine BESYLATE 5 MG TAB PO SCH (09:28)
[2022-04-22] MEDS: SACUBITRIL-VALSARTAN 24mg/26mg TAB PO SCH ×2 (09:28→21:45)
[2022-04-22] MEDS: ENOXAPARIN SOD 40 MG/0.4 ML SYRINGE SC SCH (09:29)
[2022-04-22] MEDS: ALLOPURINOL 100 MG TAB PO SCH (09:41)
[2022-04-22] MEDS: DOXYCYCLINE 100MG/250ML 250 ML IV SCH (11:00)
[2022-04-22 13:23] VITALS: BP 130/88
[2022-04-22 16:24] VITALS: BP 140/102
[2022-04-22] MEDS: DOXYCYCLINE 100 MG TAB/CAP PO SCH (21:45)
[2022-04-22] MEDS: ATORVASTATIN 20 MG TAB PO SCH (21:45)
[2022-04-22 22:00] VITALS: BP 147/110
[2022-04-23 04:00] VITALS: BP 128/97
[2022-04-23] MEDS: FUROSEMIDE 100 MG/10ML VIAL IV SCH (05:33)
[2022-04-23 06:32] LABS: Eosinophils # (auto) 0.5 10 ^3/uL (0-0.8); Hemoglobin 14.1 g/dL (13.5-17.5); Monocytes # (auto) 0.8 10 ^3/uL (0-1.3); Neutrophils # (auto) 2.4 10 ^3/uL (1.6-8.6)
[2022-04-23 06:37] LABS: Basophils # (auto) 0.1 10 ^3/uL (0-0.2); Eosinophils % (auto) 9.9 % (0.0-7.0); Hematocrit 43.8 % (41.0-53.0); Lymphocytes # (auto) 1.4 10 ^3/uL (0.4-5.4); Lymphocytes % (auto) 27.7 % (10.0-50.0); Mean Corpuscular Hemoglobin 22.1 pg (28.0-32.0); Mean Corpuscular Hgb Conc. 32.2 g/dL (32.0-36.0); Mean Corpuscular Volume 68.5 fL (80.0-100.0); Monocytes % (auto) 15.2 % (0.0-12.0); Neutrophils % (auto) 46.2 % (37.0-80.0); Nucleated Red Blood Cells % 0.2 %; Red Blood Cells 6.39 10^6/uL (4.5-5.90); Red Cell Distribution Width 19.7 % (11.8-14.3); White Blood Cell 5.2 10^3/uL (4.4-10.8)
[2022-04-23 06:53] LABS: Albumin 2.6 g/dL (3.4-5.0); Calcium 8.6 mg/dL (8.5-10.1); Potassium 3.6 mmol/L (3.5-5.1)
[2022-04-23 06:57] LABS: BUN/Creatinine Ratio 21.2; Phosphorus 3.1 mg/dL (2.5-4.90); Total Protein 7.3 g/dL (6.4-8.2)
[2022-04-23 08:00] VITALS: BP 142/98
[2022-04-23 09:00] VITALS: BP 127/91
[2022-04-23] MEDS: ENOXAPARIN SOD 40 MG/0.4 ML SYRINGE SC SCH (09:52)
[2022-04-23] MEDS: SACUBITRIL-VALSARTAN 24mg/26mg TAB PO SCH (09:52)
[2022-04-23] MEDS: ALLOPURINOL 100 MG TAB PO SCH (09:53)
[2022-04-23] MEDS: ASCORBIC ACID 500 MG TAB PO SCH (09:53)
[2022-04-23] MEDS: DOXYCYCLINE 100 MG TAB/CAP PO SCH (09:53)
[2022-04-23] MEDS: POTASSIUM CHL 20 Meq TABLET PO SCH (09:53)
[2022-04-23] MEDS: ZINC SULFATE 220mg CAP or TAB PO SCH (09:53)
[2022-04-23] MEDS: MULTIPLE VITAMIN TAB PO SCH (09:53)
[2022-04-23] MEDS: CARVEDILOL 12.5 MG TAB PO SCH (09:53)
[2022-04-23] MEDS: amLODIPine BESYLATE 5 MG TAB PO SCH (09:54)
[2022-04-23] MEDS ORDERED: CAR125T PO (11:54)
[2022-04-23] MEDS ORDERED: AML5T PO (11:54)
[2022-04-23] MEDS ORDERED: FURO40TA4 PO (11:54)
[2022-04-23] MEDS ORDERED: ATOR-47 PO (11:54)
[2022-04-23] MEDS ORDERED: ALL100T PO (11:54)
[2022-04-23] MEDS ORDERED: POTA-220 PO (11:54)
[2022-04-23] MEDS ORDERED: SACU1TAB PO (11:54)
[2022-04-23] MEDS ORDERED: DOX100T PO (11:54)
[2022-04-23 13:00] VITALS: BP 125/85
[2022-04-23 15:36] VITALS: BP 127/91
[2022-04-23 17:00] VITALS: BP 117/75
== END 2022-04-23 17:15 | disposition home health service (06) | DRG 190 ==
LOC: ER 21:34 → EDBD 21:34 → TELE 04-20 00:16 → TELE-WESTW 04-20 17:37
PROVIDERS: ADMIT Internal Medicine; ATTEND Internal Medicine
PROC: 4B02XTZ Measurement of Cardiac Defibrillator, External Approach (ICD-10-PCS; principal; 2022-04-20)
DX: I21.4 Non-ST elevation (NSTEMI) myocardial infarction (principal); I50.23 Acute on chronic systolic (congestive) heart failure; N17.9 Acute kidney failure, unspecified; I13.0 Hypertensive heart and chronic kidney disease with heart failure and stage 1 through stage 4 chronic kidney disease, or unspecified chronic kidney disease; E87.6 Hypokalemia; N18.9 Chronic kidney disease, unspecified; J44.9 Chronic obstructive pulmonary disease, unspecified; I25.10 Atherosclerotic heart disease of native coronary artery without angina pectoris; M10.9 Gout, unspecified; Z86.73 Personal history of transient ischemic attack (TIA), and cerebral infarction without residual deficits; Z87.891 Personal history of nicotine dependence; Z79.899 Other long term (current) drug therapy; Z95.810 Presence of automatic (implantable) cardiac defibrillator; Z20.822 Contact with and (suspected) exposure to COVID-19
CPT/HCPCS: 36415; 71045; 76604; 80053; 80307; 81001; 83735; 83880; 84100; 84484; 85025; 85379; 93005; 93306; 96374; 96375; 99291; G0378; J3480; J3490

== ENCOUNTER 2022-06-08 02:32 | Inpatient (IN) | payer MEDICAID ==
[~2022-06-08] VITALS: Ht 172.7 cm; Wt 102.5 kg
[~2022-06-08 02:32] MED LIST changes: +ALL100T PO; +AML5T PO; -AMLO-489 PO; +ATOR-47 PO; +CAR125T PO; -CAR3125T PO; -CARV6.2551 PO; -COLC1CAP PO; +DOX100T PO; -FUR20T PO; +POTA-220 PO; -SACU1TAB7 PO
[2022-06-08] MEDS ORDERED: FUROSEMIDE 100 MG/10ML VIAL IV ONE (03:15)
[2022-06-08] MEDS ORDERED: NITROGLYCERIN 0.4 MG SL TAB SL ONE (03:15)
[2022-06-08 03:41] LABS: Basophils # (auto) 0.1 10 ^3/uL (0-0.2); Eosinophils # (auto) 0.2 10 ^3/uL (0-0.8); Lymphocytes # (auto) 1.4 10 ^3/uL (0.4-5.4); Mean Corpuscular Hemoglobin 22.1 pg (28.0-32.0); Monocytes # (auto) 0.5 10 ^3/uL (0-1.3); Neutrophils # (auto) 4.8 10 ^3/uL (1.6-8.6)
[2022-06-08 03:44] LABS: Eosinophils % (auto) 3.5 % (0.0-7.0); Hematocrit 37.3 % (41.0-53.0); Lymphocytes % (auto) 19.9 % (10.0-50.0); Mean Corpuscular Hgb Conc. 32.2 g/dL (32.0-36.0); Mean Corpuscular Volume 68.7 fL (80.0-100.0); Monocytes % (auto) 7.8 % (0.0-12.0); Neutrophils % (auto) 67.8 % (37.0-80.0); Nucleated Red Blood Cells % 0.5 %; Red Blood Cells 5.43 10^6/uL (4.5-5.90); Red Cell Distribution Width 18.8 % (11.8-14.3)
[2022-06-08 04:04] LABS: Albumin 2.8 g/dL (3.4-5.0); Calcium 9.3 mg/dL (8.5-10.1); Magnesium 1.8 mg/dL (1.6-2.6)
[2022-06-08 04:06] LABS: BUN/Creatinine Ratio 21.2
[2022-06-08 04:08] LABS: Bilirubin, Total 1.2 mg/dL (0.2-1.0); Total Protein 7.4 g/dL (6.4-8.2)
[2022-06-08 04:11] LABS: Potassium 2.5 mmol/L (3.5-5.1)
[2022-06-08] MEDS ORDERED: POTASSIUM CHL 20MEQ/100ML 100 ML IV ONE ×2 (04:15→08:00)
[2022-06-08] MEDS ORDERED: ASPirin 81 mg TAB PO ONE (04:15)
[2022-06-08] MEDS ORDERED: POTASSIUM EFFERVESENT TAB 25 MEQ PO ONE (04:15)
[2022-06-08 04:36] LABS: Urine Bacteria NONE SEEN /hpf (None Seen); Urine Blood 1+ /uL (Negative); Urine Specific Gravity 1.008 (1.001-1.035); Urine WBC 1 /hpf (0 - 3)
[2022-06-08] MEDS ORDERED: MAGNESIUM SULFATE 1GM/100ML 100 ML IV ONE (04:45)
[2022-06-08] MEDS ORDERED: hydrALAZINE HCL 20 MG/ML VL IV ONE (06:30)
[2022-06-08] MEDS ORDERED: NITROGLYCERIN 0.4 MG SL TAB SL PRN (07:30)
[2022-06-08] MEDS ORDERED: MORPHINE SULFATE INJ 2 MG/ml SYRG IV PRN ×2 (07:30)
[2022-06-08] MEDS ORDERED: ACETAMINOPHEN 325 MG TAB PO PRN (07:30)
[2022-06-08] MEDS ORDERED: ONDANSETRON HCL 4 MG/2 ML VIAL IV PRN (07:30)
[2022-06-08] MEDS ORDERED: HEPARIN DRIP/D5W 100UNITS/ML 250 ML IV SCH ×2 (08:00)
[2022-06-08 08:35] LABS: INR 1.13 (0.9-1.15); Partial Thromboplastin Time 25.4 sec (24.6-33.4)
[2022-06-08] MEDS ORDERED: PATIENTS OWN MEDICATION (Atorvastatin Calcium 1 TAB) PO SCH (10:00)
[2022-06-08] MEDS ORDERED: FUROSEMIDE 40 MG TAB PO SCH (10:00)
[2022-06-08] MEDS: SACUBITRIL-VALSARTAN 24mg/26mg TAB PO SCH ×2 (10:11→23:29)
[2022-06-08] MEDS: ALLOPURINOL 100 MG TAB PO SCH (10:12)
[2022-06-08] MEDS: CARVEDILOL 12.5 MG TAB PO SCH ×2 (10:13→18:38)
[2022-06-08 14:17] LABS: Basophils # (auto) 0.1 10 ^3/uL (0-0.2); Eosinophils # (auto) 0.2 10 ^3/uL (0-0.8); Mean Corpuscular Hgb Conc. 31.1 g/dL (32.0-36.0); Nucleated Red Blood Cells % 0.3 %
[2022-06-08 14:19] LABS: Basophils % (auto) 0.9 % (0.0-2.0); Eosinophils % (auto) 3.3 % (0.0-7.0); Hematocrit 41.5 % (41.0-53.0); Hemoglobin 12.9 g/dL (13.5-17.5); Lymphocytes % (auto) 14.5 % (10.0-50.0); Mean Corpuscular Hemoglobin 21.3 pg (28.0-32.0); Mean Corpuscular Volume 68.5 fL (80.0-100.0); Monocytes # (auto) 0.5 10 ^3/uL (0-1.3); Monocytes % (auto) 7.7 % (0.0-12.0); Neutrophils # (auto) 5.1 10 ^3/uL (1.6-8.6); Neutrophils % (auto) 73.6 % (37.0-80.0); Red Blood Cells 6.05 10^6/uL (4.5-5.90); Red Cell Distribution Width 18.8 % (11.8-14.3)
[2022-06-08 14:40] LABS: INR 1.14 (0.9-1.15); Partial Thromboplastin Time 25.4 sec (24.6-33.4)
[2022-06-08 14:46] LABS: Albumin 2.6 g/dL (3.4-5.0); Calcium 9.3 mg/dL (8.5-10.1)
[2022-06-08 14:48] LABS: BUN/Creatinine Ratio 21.7
[2022-06-08 14:50] LABS: Bilirubin, Total 1.1 mg/dL (0.2-1.0); Total Protein 7.3 g/dL (6.4-8.2)
[2022-06-08 14:57] LABS: Potassium 2.7 mmol/L (3.5-5.1)
[2022-06-08] MEDS: HEPARIN DRIP/D5W 100UNITS/ML 250 ML IV SCH ×2 (15:00→15:26)
[2022-06-08] MEDS ORDERED: HEPARIN SODIUM (PORCINE) 5000 UNITS/ML 1ML VIAL IV ONE ×2 (15:15→21:45)
[2022-06-08] MEDS ORDERED: POTASSIUM CHL 20 Meq TABLET PO ONE (15:30)
[2022-06-08] MEDS: FUROSEMIDE 100 MG/10ML VIAL IV SCH (18:38)
[2022-06-08] MEDS ORDERED: CARVEDILOL 3.125 MG TAB PO ONE (18:45)
[2022-06-08 19:00] LABS: Alcohol, Urine < 3.0 mg/dL (0-10); Amphetamine Screen, Urine POSITIVE (NEGATIVE); Barbiturate Scree,Urine NEGATIVE (NEGATIVE); Benzodiazephine Screen, Urine NEGATIVE (NEGATIVE); Cannabinoid Screen, Urine NEGATIVE (NEGATIVE); Cocaine Screen, Urine NEGATIVE (NEGATIVE); Opiate Scree,Urine NEGATIVE (NEGATIVE); Phencyclidine Screen, Urine NEGATIVE (NEGATIVE)
[2022-06-08 21:04] LABS: INR 1.13 (0.9-1.15); Partial Thromboplastin Time 25.2 sec (24.6-33.4)
[2022-06-08] MEDS: ATORVASTATIN 20 MG TAB PO SCH (23:21)
[2022-06-08] MEDS: POTASSIUM CHL 20 Meq TABLET PO SCH (23:21)
[2022-06-09] MEDS ORDERED: HEPARIN DRIP/D5W 100UNITS/ML 250 ML IV SCH (03:00)
[2022-06-09] MEDS ORDERED: HEPARIN SODIUM (PORCINE) 5000 UNITS/ML 1ML VIAL IV ONE (04:15)
[2022-06-09 04:54] LABS: Eosinophils # (auto) 0.5 10 ^3/uL (0-0.8); Lymphocytes # (auto) 1.5 10 ^3/uL (0.4-5.4); Monocytes # (auto) 0.7 10 ^3/uL (0-1.3)
[2022-06-09 04:56] LABS: Basophils # (auto) 0 10 ^3/uL (0-0.2); Basophils % (auto) 0.7 % (0.0-2.0); Eosinophils % (auto) 7.7 % (0.0-7.0); Hematocrit 43.3 % (41.0-53.0); Hemoglobin 13.4 g/dL (13.5-17.5); Lymphocytes % (auto) 21.7 % (10.0-50.0); Mean Corpuscular Hemoglobin 21.5 pg (28.0-32.0); Mean Corpuscular Volume 69.2 fL (80.0-100.0); Neutrophils # (auto) 4.1 10 ^3/uL (1.6-8.6); Neutrophils % (auto) 59.9 % (37.0-80.0); Nucleated Red Blood Cells % 0.4 %; Red Blood Cells 6.25 10^6/uL (4.5-5.90); Red Cell Distribution Width 18.5 % (11.8-14.3); White Blood Cell 6.9 10^3/uL (4.4-10.8)
[2022-06-09 05:11] LABS: Albumin 2.3 g/dL (3.4-5.0); Calcium 8.7 mg/dL (8.5-10.1)
[2022-06-09 05:14] LABS: BUN/Creatinine Ratio 19.6; Bilirubin, Total 1.2 mg/dL (0.2-1.0); Total Protein 6.9 g/dL (6.4-8.2)
[2022-06-09] MEDS: FUROSEMIDE 100 MG/10ML VIAL IV SCH (06:41)
[2022-06-09] MEDS: SACUBITRIL-VALSARTAN 24mg/26mg TAB PO SCH ×2 (09:31→21:50)
[2022-06-09] MEDS: CARVEDILOL 12.5 MG TAB PO SCH ×2 (09:31→21:50)
[2022-06-09] MEDS: ASPirin 81 mg TAB PO SCH (09:31)
[2022-06-09] MEDS: ENOXAPARIN SOD 100 MG/1 ML SYRINGE SC SCH ×2 (09:31→21:48)
[2022-06-09] MEDS: ALLOPURINOL 100 MG TAB PO SCH (09:32)
[2022-06-09] MEDS: POTASSIUM CHL 20 Meq TABLET PO SCH ×2 (09:32→21:48)
[2022-06-09] MEDS: HYDROcodone-ACET 5/325MG TAB PO PRN (09:32)
[2022-06-09 12:53] VITALS: BP 135/106
[2022-06-09 13:00] VITALS: BP 126/88
[2022-06-09] MEDS: MAGNESIUM SULFATE 1GM/100ML 100 ML IV SCH ×2 (15:11→16:42)
[2022-06-09] MEDS ORDERED: WARFARIN SODIUM 10 MG TAB PO ONE (17:00)
[2022-06-09 17:02] VITALS: BP 117/85
[2022-06-09] MEDS: ATORVASTATIN 20 MG TAB PO SCH (21:49)
[2022-06-09] MEDS: TEMAZEPAM 15 MG CAP PO PRN (21:50)
[2022-06-09 22:00] VITALS: BP 132/95
[2022-06-10 05:00] VITALS: BP 138/90
[2022-06-10 05:48] LABS: INR 1.08 (0.9-1.15); Partial Thromboplastin Time 29.5 sec (24.6-33.4)
[2022-06-10 05:52] LABS: BUN/Creatinine Ratio 17.4; Calcium 8.7 mg/dL (8.5-10.1); Potassium 3.1 mmol/L (3.5-5.1)
[2022-06-10 09:00] VITALS: BP 148/101
[2022-06-10] MEDS: SACUBITRIL-VALSARTAN 24mg/26mg TAB PO SCH ×2 (10:14→21:19)
[2022-06-10] MEDS: CARVEDILOL 12.5 MG TAB PO SCH ×2 (10:14→21:18)
[2022-06-10] MEDS: ASPirin 81 mg TAB PO SCH (10:15)
[2022-06-10] MEDS: ALLOPURINOL 100 MG TAB PO SCH (10:15)
[2022-06-10] MEDS: POTASSIUM CHL 20 Meq TABLET PO SCH ×2 (10:15→21:19)
[2022-06-10] MEDS: ENOXAPARIN SOD 100 MG/1 ML SYRINGE SC SCH ×2 (10:16→21:20)
[2022-06-10 13:00] VITALS: BP 161/104
[2022-06-10 15:00] VITALS: BP 147/107
[2022-06-10 17:00] VITALS: BP 138/110
[2022-06-10] MEDS ORDERED: WARFARIN SODIUM 10 MG TAB PO ONE (17:00)
[2022-06-10] MEDS: ATORVASTATIN 20 MG TAB PO SCH (21:19)
[2022-06-10] MEDS: TEMAZEPAM 15 MG CAP PO PRN (21:20)
[2022-06-10 22:00] VITALS: BP 169/106
[2022-06-11 05:00] VITALS: BP 170/112
[2022-06-11 05:20] VITALS: BP 144/114
[2022-06-11 05:41] LABS: Basophils # (auto) 0 10 ^3/uL (0-0.2); Eosinophils # (auto) 0.3 10 ^3/uL (0-0.8); Eosinophils % (auto) 4.2 % (0.0-7.0); Monocytes # (auto) 0.6 10 ^3/uL (0-1.3)
[2022-06-11 05:46] LABS: Basophils % (auto) 0.7 % (0.0-2.0); Hematocrit 39.9 % (41.0-53.0); Hemoglobin 12.9 g/dL (13.5-17.5); INR 1.32 (0.9-1.15); Lymphocytes # (auto) 1.3 10 ^3/uL (0.4-5.4); Lymphocytes % (auto) 19.2 % (10.0-50.0); Mean Corpuscular Hemoglobin 22.2 pg (28.0-32.0); Mean Corpuscular Hgb Conc. 32.2 g/dL (32.0-36.0); Monocytes % (auto) 9.5 % (0.0-12.0); Neutrophils # (auto) 4.4 10 ^3/uL (1.6-8.6); Neutrophils % (auto) 66.4 % (37.0-80.0); Red Blood Cells 5.78 10^6/uL (4.5-5.90); Red Cell Distribution Width 18.4 % (11.8-14.3); White Blood Cell 6.6 10^3/uL (4.4-10.8)
[2022-06-11] MEDS: ASPirin 81 mg TAB PO SCH (08:06)
[2022-06-11] MEDS: CARVEDILOL 12.5 MG TAB PO SCH ×2 (08:06→21:42)
[2022-06-11] MEDS: ALLOPURINOL 100 MG TAB PO SCH (08:06)
[2022-06-11] MEDS: SACUBITRIL-VALSARTAN 24mg/26mg TAB PO SCH ×2 (08:06→21:41)
[2022-06-11] MEDS: ENOXAPARIN SOD 100 MG/1 ML SYRINGE SC SCH ×2 (08:07→22:00)
[2022-06-11] MEDS: POTASSIUM CHL 20 Meq TABLET PO SCH ×2 (08:07→21:41)
[2022-06-11 09:00] VITALS: BP 176/130
[2022-06-11 13:00] VITALS: BP 161/97
[2022-06-11 17:00] VITALS: BP 144/108
[2022-06-11] MEDS ORDERED: WARFARIN SODIUM 5 MG TAB PO ONE (17:00)
[2022-06-11] MEDS: guaiFENesin 200 MG/10 ML UD PO PRN (18:53)
[2022-06-11] MEDS: ATORVASTATIN 20 MG TAB PO SCH (21:40)
[2022-06-11] MEDS: TEMAZEPAM 15 MG CAP PO PRN (23:12)
[2022-06-12 05:00] VITALS: BP 150/95
[2022-06-12 06:23] LABS: INR 1.9 (0.9-1.15)
[2022-06-12 09:00] VITALS: BP 152/114
[2022-06-12] MEDS: DOCUSATE SOD 100 MG CAP PO PRN (09:14)
[2022-06-12] MEDS: ALLOPURINOL 100 MG TAB PO SCH (09:16)
[2022-06-12] MEDS: POTASSIUM CHL 20 Meq TABLET PO SCH ×2 (09:16→22:05)
[2022-06-12] MEDS: ASPirin 81 mg TAB PO SCH (09:16)
[2022-06-12] MEDS: SACUBITRIL-VALSARTAN 24mg/26mg TAB PO SCH ×2 (09:16→22:04)
[2022-06-12] MEDS: ENOXAPARIN SOD 100 MG/1 ML SYRINGE SC SCH ×2 (09:17→22:05)
[2022-06-12] MEDS: CARVEDILOL 12.5 MG TAB PO SCH ×2 (09:19→22:04)
[2022-06-12 13:00] VITALS: BP 160/118
[2022-06-12 13:58] LABS: INR 1.85 (0.9-1.15); Partial Thromboplastin Time 39.1 sec (24.6-33.4)
[2022-06-12 17:00] VITALS: BP 137/85
[2022-06-12] MEDS ORDERED: WARFARIN SODIUM 2.5 MG TAB PO ONE (17:00)
[2022-06-12] MEDS: guaiFENesin 200 MG/10 ML UD PO PRN (20:35)
[2022-06-12] MEDS: ATORVASTATIN 20 MG TAB PO SCH (22:05)
[2022-06-12] MEDS: TEMAZEPAM 15 MG CAP PO PRN (22:06)
[2022-06-12 22:08] VITALS: BP 184/139
[2022-06-13 05:00] VITALS: BP 166/116
[2022-06-13 06:00] VITALS: BP 158/98
[2022-06-13 07:30] LABS: INR 1.88 (0.9-1.15); Partial Thromboplastin Time 39.5 sec (24.6-33.4)
[2022-06-13 09:00] VITALS: BP 172/120
[2022-06-13] MEDS: POTASSIUM CHL 20 Meq TABLET PO SCH ×2 (09:09→21:11)
[2022-06-13] MEDS: CARVEDILOL 12.5 MG TAB PO SCH ×2 (09:10→21:10)
[2022-06-13] MEDS: SACUBITRIL-VALSARTAN 24mg/26mg TAB PO SCH ×2 (09:10→21:10)
[2022-06-13] MEDS: ALLOPURINOL 100 MG TAB PO SCH (09:10)
[2022-06-13] MEDS: ASPirin 81 mg TAB PO SCH (09:10)
[2022-06-13] MEDS: ENOXAPARIN SOD 100 MG/1 ML SYRINGE SC SCH ×2 (09:11→21:12)
[2022-06-13] MEDS: guaiFENesin 200 MG/10 ML UD PO PRN (10:09)
[2022-06-13] MEDS: DOCUSATE SOD 100 MG CAP PO PRN (11:47)
[2022-06-13] MEDS: HYDROcodone-ACET 5/325MG TAB PO PRN (11:47)
[2022-06-13 17:00] VITALS: BP 162/111
[2022-06-13] MEDS ORDERED: WARFARIN SODIUM 2.5 MG TAB PO ONE (17:00)
[2022-06-13] MEDS ORDERED: BISACODYL 5 MG EC TAB PO PRN (17:00)
[2022-06-13] MEDS: ATORVASTATIN 20 MG TAB PO SCH (21:12)
[2022-06-13 22:00] VITALS: BP 187/140
[2022-06-14] MEDS ORDERED: hydrALAZINE HCL 20 MG/ML VL IV PRN (02:00)
[2022-06-14 05:00] VITALS: BP 157/102
[2022-06-14 05:35] LABS: INR 2.06 (0.9-1.15); Partial Thromboplastin Time 40.3 sec (24.6-33.4)
[2022-06-14] MEDS: ASPirin 81 mg TAB PO SCH (08:55)
[2022-06-14] MEDS: SACUBITRIL-VALSARTAN 24mg/26mg TAB PO SCH (08:56)
[2022-06-14] MEDS: CARVEDILOL 12.5 MG TAB PO SCH (08:56)
[2022-06-14] MEDS: ENOXAPARIN SOD 100 MG/1 ML SYRINGE SC SCH (08:56)
[2022-06-14] MEDS: ALLOPURINOL 100 MG TAB PO SCH (08:56)
[2022-06-14] MEDS: POTASSIUM CHL 20 Meq TABLET PO SCH (08:56)
[2022-06-14] MEDS ORDERED: ASPI-325 PO (09:54)
[2022-06-14] MEDS ORDERED: WARF5TAB71 PO (10:06)
[2022-06-14] MEDS ORDERED: SACU1TAB7 PO (10:24)
[2022-06-14] MEDS ORDERED: CAR125T PO (10:24)
[2022-06-14] MEDS ORDERED: ATOR-47 PO (10:24)
[2022-06-14] MEDS ORDERED: FURO40TA4 PO (10:24)
[2022-06-14] MEDS ORDERED: POTA-220 PO (10:24)
[2022-06-14 11:12] VITALS: BP 147/91
[2022-06-14 13:00] VITALS: BP 142/91
== END 2022-06-14 12:16 | disposition home health service (06) | DRG 190 ==
LOC: ER 02:32 → TELE 07:33 → TELE-EAST 06-09 09:21
PROVIDERS: ADMIT Nurse Practitioner; ATTEND Nurse Practitioner
DX: I21.4 Non-ST elevation (NSTEMI) myocardial infarction (principal); I50.23 Acute on chronic systolic (congestive) heart failure; N17.9 Acute kidney failure, unspecified; I42.9 Cardiomyopathy, unspecified; E87.6 Hypokalemia; I16.1 Hypertensive emergency; F15.10 Other stimulant abuse, uncomplicated; I25.10 Atherosclerotic heart disease of native coronary artery without angina pectoris; Z20.822 Contact with and (suspected) exposure to COVID-19; I13.0 Hypertensive heart and chronic kidney disease with heart failure and stage 1 through stage 4 chronic kidney disease, or unspecified chronic kidney disease; I49.3 Ventricular premature depolarization; N18.9 Chronic kidney disease, unspecified; J44.9 Chronic obstructive pulmonary disease, unspecified; Z79.01 Long term (current) use of anticoagulants; Z86.73 Personal history of transient ischemic attack (TIA), and cerebral infarction without residual deficits; Z87.891 Personal history of nicotine dependence; Z91.14 Patient's other noncompliance with medication regimen; Z95.810 Presence of automatic (implantable) cardiac defibrillator
CPT/HCPCS: 36415; 71045; 80048; 80053; 80307; 81001; 83735; 83880; 84132; 84484; 85025; 85610; 85730; 87077; 87186; 87205; 93005; 93306; 96361; 96365; 99291; G0378; J3480

== ENCOUNTER 2022-06-26 23:20 | Inpatient (IN) | payer MEDICAID ==
[~2022-06-26] VITALS: Ht 172.7 cm; Wt 98.0 kg
[~2022-06-26 23:20] MED LIST changes: +ASPI-325 PO; -DOX100T PO; -SACU1TAB PO; +SACU1TAB7 PO; +WARF5TAB71 PO
[2022-06-27 00:05] LABS: Basophils # (auto) 0 10 ^3/uL (0-0.2); Basophils % (auto) 0.6 % (0.0-2.0); Eosinophils # (auto) 0.5 10 ^3/uL (0-0.8); Eosinophils % (auto) 7.4 % (0.0-7.0); Hematocrit 40.8 % (41.0-53.0); Hemoglobin 12.6 g/dL (13.5-17.5); Lymphocytes # (auto) 0.8 10 ^3/uL (0.4-5.4); Lymphocytes % (auto) 13.3 % (10.0-50.0); Mean Corpuscular Hemoglobin 21.4 pg (28.0-32.0); Mean Corpuscular Hgb Conc. 30.8 g/dL (32.0-36.0); Mean Corpuscular Volume 69.6 fL (80.0-100.0); Monocytes # (auto) 0.7 10 ^3/uL (0-1.3); Neutrophils # (auto) 4.2 10 ^3/uL (1.6-8.6); Neutrophils % (auto) 67.7 % (37.0-80.0); Nucleated Red Blood Cells % 0.1 %; Red Blood Cells 5.86 10^6/uL (4.5-5.90); Red Cell Distribution Width 19.1 % (11.8-14.3); White Blood Cell 6.2 10^3/uL (4.4-10.8)
[2022-06-27 00:23] LABS: Albumin 2.6 g/dL (3.4-5.0); BUN/Creatinine Ratio 22.7; Calcium 8.9 mg/dL (8.5-10.1); Potassium 3.6 mmol/L (3.5-5.1)
[2022-06-27 00:25] LABS: Bilirubin, Total 0.6 mg/dL (0.2-1.0); Total Protein 7.3 g/dL (6.4-8.2)
[2022-06-27] MEDS ORDERED: VANCOMYCIN PER PHARMACY 0 MG IV SCH ×2 (05:00→06:30)
[2022-06-27] MEDS ORDERED: CEFEPIME 1GM/ 50ML 50 ML IV ONE (05:00)
[2022-06-27] MEDS ORDERED: VANCOMYCIN 1GM/250ML 250 ML IV ONE (05:15)
[2022-06-27] MEDS ORDERED: ONDANSETRON HCL 4 MG/2 ML VIAL IV PRN (06:30)
[2022-06-27] MEDS ORDERED: DOCUSATE SOD 100 MG CAP PO PRN (06:30)
[2022-06-27] MEDS ORDERED: ACETAMINOPHEN 325 MG TAB PO PRN (06:30)
[2022-06-27] MEDS ORDERED: MORPHINE SULFATE INJ 2 MG/ml SYRG IV PRN ×2 (06:30→07:00)
[2022-06-27] MEDS ORDERED: ALBUMIN 25% 100 ML IV ONE (07:00)
[2022-06-27] MEDS ORDERED: NITROGLYCERIN 0.4 MG SL TAB SL PRN (07:00)
[2022-06-27 07:36] LABS: Albumin 2.5 g/dL (3.4-5.0); Potassium 3.5 mmol/L (3.5-5.1)
[2022-06-27 07:42] LABS: BUN/Creatinine Ratio 22.6; Basophils # (auto) 0.1 10 ^3/uL (0-0.2); Bilirubin, Total 0.6 mg/dL (0.2-1.0); Eosinophils # (auto) 0.5 10 ^3/uL (0-0.8); Monocytes # (auto) 0.7 10 ^3/uL (0-1.3); Total Protein 7.3 g/dL (6.4-8.2)
[2022-06-27 08:21] LABS: Hematocrit 41.6 % (41.0-53.0); Neutrophils # (auto) 3.8 10 ^3/uL (1.6-8.6); White Blood Cell 6.3 10^3/uL (4.4-10.8)
[2022-06-27 08:23] LABS: Basophils % (auto) 0.9 % (0.0-2.0); Eosinophils % (auto) 7.9 % (0.0-7.0); Hemoglobin 12.7 g/dL (13.5-17.5); Lymphocytes # (auto) 1.2 10 ^3/uL (0.4-5.4); Lymphocytes % (auto) 18.5 % (10.0-50.0); Mean Corpuscular Hemoglobin 21.3 pg (28.0-32.0); Mean Corpuscular Hgb Conc. 30.7 g/dL (32.0-36.0); Mean Corpuscular Volume 69.6 fL (80.0-100.0); Monocytes % (auto) 11.7 % (0.0-12.0); Nucleated Red Blood Cells % 0.3 %; Red Blood Cells 5.97 10^6/uL (4.5-5.90)
[2022-06-27 09:10] LABS: INR 0.96 (0.9-1.15); Partial Thromboplastin Time 28.8 sec (24.6-33.4)
[2022-06-27] MEDS ORDERED: ASPirin 81 mg TAB PO SCH (10:00)
[2022-06-27] MEDS: MULTIPLE VITAMIN TAB PO SCH (10:53)
[2022-06-27] MEDS: ASCORBIC ACID 500 MG TAB PO SCH ×2 (10:53→22:17)
[2022-06-27] MEDS: ZINC SULFATE 220mg CAP or TAB PO SCH (10:54)
[2022-06-27] MEDS: CARVEDILOL 3.125 MG TAB PO SCH ×2 (10:57→22:17)
[2022-06-27] MEDS: amLODIPine BESYLATE 5 MG TAB PO SCH (10:57)
[2022-06-27] MEDS: FUROSEMIDE 40 MG/4 ML VIAL IV SCH (10:59)
[2022-06-27] MEDS: CEFEPIME 1GM/ 50ML 50 ML IV SCH (11:02)
[2022-06-27] MEDS ORDERED: ALLO100T PO (12:32)
[2022-06-27 12:54] VITALS: BP 160/102
[2022-06-27] MEDS: SODIUM CHLOR 0.9% PF (SALINE LOCK) 10ML VIAL/SYR IV SCH ×2 (13:56→22:16)
[2022-06-27 16:35] VITALS: BP 152/116
[2022-06-27] MEDS ORDERED: VANCOMYCIN 1GM/250ML 250 ML IV SCH (21:00)
[2022-06-27 21:13] LABS: Urine Bacteria NONE SEEN /hpf (None Seen); Urine Blood Negative /uL (Negative); Urine Specific Gravity 1.013 (1.001-1.035); Urine WBC 3 /hpf (0 - 3)
[2022-06-27 22:00] VITALS: BP 164/95
[2022-06-27] MEDS: ATORVASTATIN 20 MG TAB PO SCH (22:17)
[2022-06-28 05:00] VITALS: BP 165/106
[2022-06-28 05:33] LABS: Basophils # (auto) 0.1 10 ^3/uL (0-0.2); Eosinophils # (auto) 0.7 10 ^3/uL (0-0.8); Lymphocytes # (auto) 1.4 10 ^3/uL (0.4-5.4); Mean Corpuscular Hemoglobin 21.4 pg (28.0-32.0); Monocytes # (auto) 0.6 10 ^3/uL (0-1.3); Neutrophils # (auto) 2.6 10 ^3/uL (1.6-8.6); Nucleated Red Blood Cells % 0.1 %; White Blood Cell 5.4 10^3/uL (4.4-10.8)
[2022-06-28 05:37] LABS: Basophils % (auto) 1.6 % (0.0-2.0); Eosinophils % (auto) 12.6 % (0.0-7.0); Hematocrit 40.6 % (41.0-53.0); Hemoglobin 12.7 g/dL (13.5-17.5); Lymphocytes % (auto) 25.4 % (10.0-50.0); Mean Corpuscular Hgb Conc. 31.3 g/dL (32.0-36.0); Mean Corpuscular Volume 68.5 fL (80.0-100.0); Monocytes % (auto) 12.1 % (0.0-12.0); Neutrophils % (auto) 48.3 % (37.0-80.0); Red Blood Cells 5.93 10^6/uL (4.5-5.90); Red Cell Distribution Width 18.4 % (11.8-14.3)
[2022-06-28 05:50] LABS: INR 1.01 (0.9-1.15)
[2022-06-28 05:53] LABS: Potassium 3.7 mmol/L (3.5-5.1)
[2022-06-28] MEDS: SODIUM CHLOR 0.9% PF (SALINE LOCK) 10ML VIAL/SYR IV SCH ×3 (05:57→22:02)
[2022-06-28 05:59] LABS: Albumin 2.4 g/dL (3.4-5.0); BUN/Creatinine Ratio 23.5; Bilirubin, Total 0.5 mg/dL (0.2-1.0); Total Protein 6.9 g/dL (6.4-8.2)
[2022-06-28 09:00] VITALS: BP 150/100
[2022-06-28] MEDS: ASCORBIC ACID 500 MG TAB PO SCH ×2 (09:03→22:03)
[2022-06-28] MEDS: ZINC SULFATE 220mg CAP or TAB PO SCH (09:03)
[2022-06-28] MEDS: MULTIPLE VITAMIN TAB PO SCH (09:03)
[2022-06-28] MEDS: CEFEPIME 1GM/ 50ML 50 ML IV SCH (09:04)
[2022-06-28] MEDS: FUROSEMIDE 40 MG/4 ML VIAL IV SCH (09:06)
[2022-06-28] MEDS: amLODIPine BESYLATE 5 MG TAB PO SCH (09:07)
[2022-06-28] MEDS: CARVEDILOL 3.125 MG TAB PO SCH ×2 (09:07→22:02)
[2022-06-28 13:00] VITALS: BP 145/100
[2022-06-28] MEDS: VANCOMYCIN 1GM/250ML 250 ML IV SCH (15:25)
[2022-06-28 17:37] VITALS: BP 149/103
[2022-06-28 22:00] VITALS: BP 141/92
[2022-06-28] MEDS: CEFEPIME 2 GM in SODIUM CHL 0.9% 50 ML IV SCH (22:02)
[2022-06-28] MEDS: ATORVASTATIN 20 MG TAB PO SCH (22:03)
[2022-06-29 05:00] VITALS: BP 163/93
[2022-06-29] MEDS: CEFEPIME 2 GM in SODIUM CHL 0.9% 50 ML IV SCH ×3 (05:47→22:11)
[2022-06-29] MEDS: VANCOMYCIN 1GM/250ML 250 ML IV SCH ×2 (06:08→18:48)
[2022-06-29] MEDS: SODIUM CHLOR 0.9% PF (SALINE LOCK) 10ML VIAL/SYR IV SCH ×3 (06:08→22:12)
[2022-06-29] MEDS: amLODIPine BESYLATE 5 MG TAB PO SCH (09:08)
[2022-06-29] MEDS: ALLOPURINOL 100 MG TAB PO SCH ×2 (09:08→22:13)
[2022-06-29] MEDS: ASCORBIC ACID 500 MG TAB PO SCH ×2 (09:08→22:13)
[2022-06-29] MEDS: FUROSEMIDE 40 MG/4 ML VIAL IV SCH (09:08)
[2022-06-29] MEDS: MULTIPLE VITAMIN TAB PO SCH (09:09)
[2022-06-29] MEDS: CARVEDILOL 3.125 MG TAB PO SCH ×2 (09:09→22:12)
[2022-06-29] MEDS: ZINC SULFATE 220mg CAP or TAB PO SCH (09:09)
[2022-06-29 09:20] VITALS: BP 140/108
[2022-06-29] MEDS: HYDROcodone-ACET 5/325MG TAB PO PRN (11:38)
[2022-06-29 12:48] LABS: Alcohol, Urine < 3.0 mg/dL (0-10); Amphetamine Screen, Urine NEGATIVE (NEGATIVE); Barbiturate Scree,Urine NEGATIVE (NEGATIVE); Benzodiazephine Screen, Urine NEGATIVE (NEGATIVE); Cannabinoid Screen, Urine NEGATIVE (NEGATIVE); Cocaine Screen, Urine NEGATIVE (NEGATIVE); Opiate Scree,Urine NEGATIVE (NEGATIVE); Phencyclidine Screen, Urine NEGATIVE (NEGATIVE)
[2022-06-29 15:03] VITALS: BP 144/94
[2022-06-29 17:02] VITALS: BP 156/95
[2022-06-29 22:00] VITALS: BP 153/93
[2022-06-29] MEDS: ATORVASTATIN 20 MG TAB PO SCH (22:12)
[2022-06-29] MEDS: ZOLPIDEM TARTRATE 5 MG TAB PO PRN (22:13)
[2022-06-30] VITALS (8 sets, daily range): BP systolic 147–158; BP diastolic 96–112
[2022-06-30] MEDS: VANCOMYCIN 1GM/250ML 250 ML IV SCH ×3 (05:36→21:08)
[2022-06-30] MEDS: CEFEPIME 2 GM in SODIUM CHL 0.9% 50 ML IV SCH ×3 (06:00→23:00)
[2022-06-30] MEDS: SODIUM CHLOR 0.9% PF (SALINE LOCK) 10ML VIAL/SYR IV SCH ×3 (06:13→22:00)
[2022-06-30 06:45] LABS: Albumin 2.6 g/dL (3.4-5.0); Calcium 8.9 mg/dL (8.5-10.1); Potassium 3.9 mmol/L (3.5-5.1)
[2022-06-30 06:50] LABS: BUN/Creatinine Ratio 24.8; Bilirubin, Total 0.5 mg/dL (0.2-1.0); Total Protein 7.1 g/dL (6.4-8.2)
[2022-06-30 06:57] LABS: Basophils # (auto) 0.1 10 ^3/uL (0-0.2); Basophils % (auto) 0.9 % (0.0-2.0); Eosinophils # (auto) 0.5 10 ^3/uL (0-0.8); Hematocrit 37.8 % (41.0-53.0); Hemoglobin 11.7 g/dL (13.5-17.5); Lymphocytes # (auto) 0.8 10 ^3/uL (0.4-5.4); Lymphocytes % (auto) 13.7 % (10.0-50.0); Mean Corpuscular Hemoglobin 21.2 pg (28.0-32.0); Mean Corpuscular Hgb Conc. 30.9 g/dL (32.0-36.0); Mean Corpuscular Volume 68.7 fL (80.0-100.0); Monocytes # (auto) 0.5 10 ^3/uL (0-1.3); Monocytes % (auto) 8.9 % (0.0-12.0); Neutrophils % (auto) 67.8 % (37.0-80.0); Red Blood Cells 5.49 10^6/uL (4.5-5.90); Red Cell Distribution Width 18.7 % (11.8-14.3); White Blood Cell 5.9 10^3/uL (4.4-10.8)
[2022-06-30 06:59] LABS: Eosinophils % (auto) 8.7 % (0.0-7.0)
[2022-06-30] MEDS ORDERED: LIDOCAINE 2%HCL (LOCAL ANESTH.) INJ 20ML MDV ONE (07:16)
[2022-06-30] MEDS ORDERED: ceFAZolin 1GM VL ONE (07:27)
[2022-06-30] MEDS ORDERED: VANCOMYCIN HCL 1000 MG VL ONE ×2 (07:27→07:48)
[2022-06-30] MEDS ORDERED: fentaNYL CITRATE 100 MCG/2 ML VL ONE (07:28)
[2022-06-30] MEDS ORDERED: MIDAZOLAM HCL 2MG/2ML 2ml VIAL (1mg/ml) ONE (07:28)
[2022-06-30] MEDS ORDERED: cefTRIAXone 1GM/50ML D5W 50 ML IV ONE (07:45)
[2022-06-30] MEDS ORDERED: hydrALAZINE HCL 20 MG/ML VL ONE (07:57)
[2022-06-30] MEDS ORDERED: GELATIN 1 SPONGE SIZE 50 TOP ONE (09:03)
[2022-06-30] MEDS: CARVEDILOL 3.125 MG TAB PO SCH ×2 (12:10→22:31)
[2022-06-30] MEDS: MULTIPLE VITAMIN TAB PO SCH (12:10)
[2022-06-30] MEDS: ZINC SULFATE 220mg CAP or TAB PO SCH (12:10)
[2022-06-30] MEDS: FUROSEMIDE 40 MG/4 ML VIAL IV SCH (12:10)
[2022-06-30] MEDS: ALLOPURINOL 100 MG TAB PO SCH ×2 (12:11→22:32)
[2022-06-30] MEDS: ASCORBIC ACID 500 MG TAB PO SCH ×2 (12:11→22:32)
[2022-06-30] MEDS: amLODIPine BESYLATE 5 MG TAB PO SCH (12:11)
[2022-06-30] MEDS: HYDROcodone-ACET 5/325MG TAB PO PRN ×2 (12:12→19:28)
[2022-06-30] MEDS: ATORVASTATIN 20 MG TAB PO SCH (22:31)
[2022-06-30] MEDS: ZOLPIDEM TARTRATE 5 MG TAB PO PRN (22:32)
[2022-07-01 05:00] VITALS: BP 158/97
[2022-07-01] MEDS: SODIUM CHLOR 0.9% PF (SALINE LOCK) 10ML VIAL/SYR IV SCH ×3 (05:54→22:36)
[2022-07-01] MEDS: CEFEPIME 2 GM in SODIUM CHL 0.9% 50 ML IV SCH ×3 (05:55→22:00)
[2022-07-01] MEDS ORDERED: hydrALAZINE HCL 20 MG/ML VL IV PRN (07:45)
[2022-07-01 08:49] VITALS: BP 160/107
[2022-07-01] MEDS: ASCORBIC ACID 500 MG TAB PO SCH ×2 (09:26→22:30)
[2022-07-01] MEDS: SACUBITRIL-VALSARTAN 24mg/26mg TAB PO SCH ×2 (09:26→22:30)
[2022-07-01] MEDS: amLODIPine BESYLATE 5 MG TAB PO SCH (09:27)
[2022-07-01] MEDS: MULTIPLE VITAMIN TAB PO SCH (09:27)
[2022-07-01] MEDS: CARVEDILOL 12.5 MG TAB PO SCH ×2 (09:27→22:31)
[2022-07-01] MEDS: ZINC SULFATE 220mg CAP or TAB PO SCH (09:28)
[2022-07-01] MEDS: ALLOPURINOL 100 MG TAB PO SCH ×2 (09:28→22:31)
[2022-07-01] MEDS: FUROSEMIDE 40 MG/4 ML VIAL IV SCH (09:38)
[2022-07-01 13:00] VITALS: BP 157/90
[2022-07-01] MEDS: VANCOMYCIN 1GM/250ML 250 ML IV SCH (14:28)
[2022-07-01 17:00] VITALS: BP 130/80
[2022-07-01 22:00] VITALS: BP 150/97
[2022-07-01] MEDS: ATORVASTATIN 20 MG TAB PO SCH (22:32)
[2022-07-02] MEDS: HYDROcodone-ACET 5/325MG TAB PO PRN ×2 (00:52→05:33)
[2022-07-02] MEDS: VANCOMYCIN 1GM/250ML 250 ML IV SCH ×2 (03:00→20:26)
[2022-07-02 05:00] VITALS: BP 135/92
[2022-07-02] MEDS: CEFEPIME 2 GM in SODIUM CHL 0.9% 50 ML IV SCH ×3 (05:27→22:35)
[2022-07-02 09:00] VITALS: BP 134/92
[2022-07-02] MEDS: SACUBITRIL-VALSARTAN 24mg/26mg TAB PO SCH ×2 (09:12→22:42)
[2022-07-02] MEDS: ASCORBIC ACID 500 MG TAB PO SCH ×2 (09:13→22:44)
[2022-07-02] MEDS: MULTIPLE VITAMIN TAB PO SCH (09:13)
[2022-07-02] MEDS: APIXABAN 5 MG TAB PO SCH ×2 (09:13→22:42)
[2022-07-02] MEDS: ZINC SULFATE 220mg CAP or TAB PO SCH (09:13)
[2022-07-02] MEDS: CARVEDILOL 12.5 MG TAB PO SCH ×2 (09:14→22:42)
[2022-07-02] MEDS: ALLOPURINOL 100 MG TAB PO SCH ×2 (09:14→22:43)
[2022-07-02] MEDS: amLODIPine BESYLATE 5 MG TAB PO SCH (09:15)
[2022-07-02 13:00] VITALS: BP 130/93
[2022-07-02 17:00] VITALS: BP 140/88
[2022-07-02 18:00] VITALS: BP 139/78
[2022-07-02] MEDS ORDERED: VANCOMYCIN 1GM/250ML 250 ML IV SCH (18:30)
[2022-07-02] MEDS: SODIUM CHLOR 0.9% PF (SALINE LOCK) 10ML VIAL/SYR IV SCH ×2 (19:00→20:05)
[2022-07-02] MEDS: FUROSEMIDE 40 MG/4 ML VIAL IV SCH (20:07)
[2022-07-02 22:00] VITALS: BP 138/100
[2022-07-02] MEDS: ATORVASTATIN 20 MG TAB PO SCH (22:44)
[2022-07-03] MEDS: SODIUM CHLOR 0.9% PF (SALINE LOCK) 10ML VIAL/SYR IV SCH ×4 (03:06→22:09)
[2022-07-03 05:00] VITALS: BP 147/91
[2022-07-03] MEDS: CEFEPIME 2 GM in SODIUM CHL 0.9% 50 ML IV SCH ×3 (05:22→21:59)
[2022-07-03 07:40] VITALS: BP 143/108
[2022-07-03 09:00] VITALS: BP 143/108
[2022-07-03] MEDS: SACUBITRIL-VALSARTAN 24mg/26mg TAB PO SCH ×2 (10:07→22:00)
[2022-07-03] MEDS: ZINC SULFATE 220mg CAP or TAB PO SCH (10:07)
[2022-07-03] MEDS: ASCORBIC ACID 500 MG TAB PO SCH ×2 (10:08→22:09)
[2022-07-03] MEDS: APIXABAN 5 MG TAB PO SCH ×2 (10:08→21:59)
[2022-07-03] MEDS: FUROSEMIDE 40 MG/4 ML VIAL IV SCH (10:08)
[2022-07-03] MEDS: MULTIPLE VITAMIN TAB PO SCH (10:08)
[2022-07-03] MEDS: amLODIPine BESYLATE 5 MG TAB PO SCH (10:08)
[2022-07-03] MEDS: CARVEDILOL 12.5 MG TAB PO SCH ×2 (10:08→22:00)
[2022-07-03] MEDS: ALLOPURINOL 100 MG TAB PO SCH ×2 (10:08→22:00)
[2022-07-03] MEDS: VANCOMYCIN 1GM/250ML 250 ML IV SCH ×2 (10:09→19:54)
[2022-07-03] MEDS ORDERED: AML5T PO (11:03)
[2022-07-03] MEDS ORDERED: APIX5TAB PO (11:03)
[2022-07-03 13:00] VITALS: BP 141/94
[2022-07-03 17:21] VITALS: BP 123/79
[2022-07-03] MEDS ORDERED: PROMETHAZINE W/CODEINE 5 ML ORAL SYRUP PO PRN (19:45)
[2022-07-03] MEDS ORDERED: cefTRIAXone 1GM/50ML D5W 50 ML IV SCH (21:00)
[2022-07-03] MEDS: ATORVASTATIN 20 MG TAB PO SCH (22:09)
[2022-07-04] VITALS (7 sets, daily range): BP systolic 113–146; BP diastolic 72–95
[2022-07-04] MEDS: SODIUM CHLOR 0.9% PF (SALINE LOCK) 10ML VIAL/SYR IV SCH ×3 (05:46→21:41)
[2022-07-04] MEDS: CEFEPIME 2 GM in SODIUM CHL 0.9% 50 ML IV SCH ×3 (05:46→21:41)
[2022-07-04] MEDS: VANCOMYCIN 1GM/250ML 250 ML IV SCH ×2 (07:50→20:00)
[2022-07-04] MEDS: ASCORBIC ACID 500 MG TAB PO SCH ×2 (09:58→21:41)
[2022-07-04] MEDS: ZINC SULFATE 220mg CAP or TAB PO SCH (09:58)
[2022-07-04] MEDS: SACUBITRIL-VALSARTAN 24mg/26mg TAB PO SCH ×2 (09:58→21:40)
[2022-07-04] MEDS: CARVEDILOL 12.5 MG TAB PO SCH ×2 (09:59→21:40)
[2022-07-04] MEDS: MULTIPLE VITAMIN TAB PO SCH (09:59)
[2022-07-04] MEDS: ALLOPURINOL 100 MG TAB PO SCH ×2 (09:59→21:40)
[2022-07-04] MEDS: amLODIPine BESYLATE 5 MG TAB PO SCH (09:59)
[2022-07-04] MEDS: FUROSEMIDE 40 MG/4 ML VIAL IV SCH (09:59)
[2022-07-04] MEDS: APIXABAN 5 MG TAB PO SCH ×2 (09:59→21:40)
[2022-07-04] MEDS: ATORVASTATIN 20 MG TAB PO SCH (21:41)
[2022-07-05 05:00] VITALS: BP 139/93
[2022-07-05] MEDS: CEFEPIME 2 GM in SODIUM CHL 0.9% 50 ML IV SCH ×3 (05:56→22:18)
[2022-07-05] MEDS: SODIUM CHLOR 0.9% PF (SALINE LOCK) 10ML VIAL/SYR IV SCH ×3 (05:56→22:18)
[2022-07-05] MEDS: CARVEDILOL 12.5 MG TAB PO SCH ×2 (10:09→22:19)
[2022-07-05] MEDS: ZINC SULFATE 220mg CAP or TAB PO SCH (10:09)
[2022-07-05] MEDS: FUROSEMIDE 40 MG/4 ML VIAL IV SCH (10:09)
[2022-07-05] MEDS: MULTIPLE VITAMIN TAB PO SCH (10:10)
[2022-07-05] MEDS: APIXABAN 5 MG TAB PO SCH ×2 (10:10→22:20)
[2022-07-05] MEDS: SACUBITRIL-VALSARTAN 24mg/26mg TAB PO SCH ×2 (10:10→22:20)
[2022-07-05] MEDS: amLODIPine BESYLATE 5 MG TAB PO SCH (10:11)
[2022-07-05] MEDS: ASCORBIC ACID 500 MG TAB PO SCH ×2 (10:11→22:20)
[2022-07-05] MEDS: ALLOPURINOL 100 MG TAB PO SCH ×2 (10:11→22:19)
[2022-07-05] MEDS: VANCOMYCIN 1GM/250ML 250 ML IV SCH (12:54)
[2022-07-05 13:00] VITALS: BP 142/80
[2022-07-05 17:00] VITALS: BP 138/98
[2022-07-05] MEDS: ATORVASTATIN 20 MG TAB PO SCH (22:20)
[2022-07-05 22:54] VITALS: BP 144/88
[2022-07-06] MEDS: VANCOMYCIN 1GM/250ML 250 ML IV SCH (03:59)
[2022-07-06 05:20] VITALS: BP 148/73
[2022-07-06] MEDS: SODIUM CHLOR 0.9% PF (SALINE LOCK) 10ML VIAL/SYR IV SCH ×2 (05:44→14:29)
[2022-07-06] MEDS: CEFEPIME 2 GM in SODIUM CHL 0.9% 50 ML IV SCH ×2 (05:45→14:29)
[2022-07-06 09:00] VITALS: BP 144/93
[2022-07-06] MEDS: ZINC SULFATE 220mg CAP or TAB PO SCH (10:26)
[2022-07-06] MEDS: FUROSEMIDE 40 MG/4 ML VIAL IV SCH (10:26)
[2022-07-06] MEDS: CARVEDILOL 12.5 MG TAB PO SCH (10:27)
[2022-07-06] MEDS: APIXABAN 5 MG TAB PO SCH (10:27)
[2022-07-06] MEDS: amLODIPine BESYLATE 5 MG TAB PO SCH (10:28)
[2022-07-06] MEDS: MULTIPLE VITAMIN TAB PO SCH (10:28)
[2022-07-06] MEDS: SACUBITRIL-VALSARTAN 24mg/26mg TAB PO SCH (10:28)
[2022-07-06] MEDS: ASCORBIC ACID 500 MG TAB PO SCH (10:28)
[2022-07-06] MEDS: ALLOPURINOL 100 MG TAB PO SCH (10:29)
[2022-07-06 13:00] VITALS: BP 159/89
[2022-07-06 15:18] VITALS: BP 159/89
== END 2022-07-06 15:40 | DRG 180 ==
LOC: ER 23:20 → OVERFLOW 06-27 06:48 → EAST 06-27 08:46 → TELE-EAST 06-27 18:40
PROVIDERS: ADMIT Internal Medicine; ATTEND Internal Medicine
PROC: 0JPT0PZ Removal of Cardiac Rhythm Related Device from Trunk Subcutaneous Tissue and Fascia, Open Approach (ICD-10-PCS; 2022-06-30)
PROC: 02PA0MZ Removal of Cardiac Lead from Heart, Open Approach (ICD-10-PCS; principal; 2022-06-30 07:15)
PROC: 05HB33Z Insertion of Infusion Device into Right Basilic Vein, Percutaneous Approach (ICD-10-PCS; 2022-07-01)
PROC: B54MZZA Ultrasonography of Right Upper Extremity Veins, Guidance (ICD-10-PCS; 2022-07-01)
PROC: 05HA33Z Insertion of Infusion Device into Left Brachial Vein, Percutaneous Approach (ICD-10-PCS; 2022-07-02)
PROC: B54NZZA Ultrasonography of Left Upper Extremity Veins, Guidance (ICD-10-PCS; 2022-07-02)
DX: T82.7XXA Infection and inflammatory reaction due to other cardiac and vascular devices, implants and grafts, initial encounter (principal); I50.23 Acute on chronic systolic (congestive) heart failure; N17.9 Acute kidney failure, unspecified; I42.8 Other cardiomyopathies; B95.7 Other staphylococcus as the cause of diseases classified elsewhere; F15.10 Other stimulant abuse, uncomplicated; G47.33 Obstructive sleep apnea (adult) (pediatric); N18.9 Chronic kidney disease, unspecified; Y83.1 Surgical operation with implant of artificial internal device as the cause of abnormal reaction of the patient, or of later complication, without mention of misadventure at the time of the procedure; Z20.822 Contact with and (suspected) exposure to COVID-19; J44.9 Chronic obstructive pulmonary disease, unspecified; F17.200 Nicotine dependence, unspecified, uncomplicated; E78.00 Pure hypercholesterolemia, unspecified; I13.0 Hypertensive heart and chronic kidney disease with heart failure and stage 1 through stage 4 chronic kidney disease, or unspecified chronic kidney disease; I25.10 Atherosclerotic heart disease of native coronary artery without angina pectoris; Z82.49 Family history of ischemic heart disease and other diseases of the circulatory system; I25.2 Old myocardial infarction; Z86.73 Personal history of transient ischemic attack (TIA), and cerebral infarction without residual deficits; Z91.19 Patient's noncompliance with other medical treatment and regimen; Y92.89 Other specified places as the place of occurrence of the external cause
CPT/HCPCS: 36415; 71045; 80053; 80061; 80202; 80307; 81001; 82565; 82962; 83036; 83605; 83735; 85025; 85610; 85730; 86850; 86900; 86901; 87040; 87081; 93005; 93306; 96365; 96375; 99152; 99153; G0378; J0690; J0696; J2250

== ENCOUNTER 2022-07-13 05:16 | Inpatient (IN) | payer MEDICAID ==
[~2022-07-13] VITALS: Ht 172.7 cm; Wt 99.0 kg
[~2022-07-13 05:16] MED LIST changes: -ALL100T PO; +ALLO100T PO; +APIX5TAB PO; -WARF5TAB71 PO
[2022-07-13 06:52] LABS: Basophils # (auto) 0.1 10 ^3/uL (0-0.2); Eosinophils # (auto) 0.6 10 ^3/uL (0-0.8); Hemoglobin 11.3 g/dL (13.5-17.5); Lymphocytes # (auto) 0.9 10 ^3/uL (0.4-5.4); Monocytes # (auto) 0.6 10 ^3/uL (0-1.3); Neutrophils # (auto) 3.3 10 ^3/uL (1.6-8.6); Nucleated Red Blood Cells % 0.1 %; White Blood Cell 5.4 10^3/uL (4.4-10.8)
[2022-07-13 06:55] LABS: Basophils % (auto) 1.1 % (0.0-2.0); Eosinophils % (auto) 10.5 % (0.0-7.0); Hematocrit 35.9 % (41.0-53.0); Mean Corpuscular Hemoglobin 21.5 pg (28.0-32.0); Mean Corpuscular Hgb Conc. 31.4 g/dL (32.0-36.0); Mean Corpuscular Volume 68.3 fL (80.0-100.0); Monocytes % (auto) 10.9 % (0.0-12.0); Neutrophils % (auto) 61.5 % (37.0-80.0); Red Blood Cells 5.25 10^6/uL (4.5-5.90); Red Cell Distribution Width 18.7 % (11.8-14.3)
[2022-07-13 06:59] LABS: Albumin 2.8 g/dL (3.4-5.0); Calcium 8.7 mg/dL (8.5-10.1); Potassium 4.3 mmol/L (3.5-5.1)
[2022-07-13 07:02] LABS: BUN/Creatinine Ratio 18.8; Bilirubin, Total 0.8 mg/dL (0.2-1.0); Total Protein 6.9 g/dL (6.4-8.2)
[2022-07-13] MEDS ORDERED: IOHEXOL 300 MG/ML 100ML BOTTLE IJ ONE (07:35)
[2022-07-13 08:08] LABS: INR 1.09 (0.9-1.15); Partial Thromboplastin Time 23.7 sec (24.6-33.4)
[2022-07-13] MEDS ORDERED: VANCOMYCIN PER PHARMACY 0 MG IV SCH (10:00)
[2022-07-13] MEDS: FUROSEMIDE 40 MG TAB PO SCH ×2 (10:00→22:06)
[2022-07-13] MEDS ORDERED: MORPHINE SULFATE INJ 2 MG/ml SYRG IV PRN (10:00)
[2022-07-13] MEDS ORDERED: NITROGLYCERIN 0.4 MG SL TAB SL PRN (10:00)
[2022-07-13] MEDS ORDERED: ONDANSETRON HCL 4 MG/2 ML VIAL IV PRN (10:00)
[2022-07-13] MEDS ORDERED: ACETAMINOPHEN 325 MG TAB PO PRN (10:00)
[2022-07-13] MEDS ORDERED: DOCUSATE SOD 100 MG CAP PO PRN (10:00)
[2022-07-13] MEDS ORDERED: PATIENTS OWN MEDICATION (Atorvastatin Calcium 1 TAB) PO SCH (10:00)
[2022-07-13] MEDS ORDERED: PATIENTS OWN MEDICATION (Sacubitril-Valsartan (Entresto 49-51 mg) 1 TAB) PO SCH (10:00)
[2022-07-13] MEDS: ASCORBIC ACID 500 MG TAB PO SCH ×2 (10:54→22:06)
[2022-07-13] MEDS: MULTIPLE VITAMIN TAB PO SCH (10:54)
[2022-07-13] MEDS: ZINC SULFATE 220mg CAP or TAB PO SCH (10:54)
[2022-07-13] MEDS: ALLOPURINOL 100 MG TAB PO SCH ×2 (10:54→22:06)
[2022-07-13] MEDS: amLODIPine BESYLATE 5 MG TAB PO SCH (10:55)
[2022-07-13] MEDS: CARVEDILOL 12.5 MG TAB PO SCH ×2 (10:56→22:06)
[2022-07-13] MEDS: CEFEPIME 2 GM in SODIUM CHL 0.9% 50 ML IV SCH ×2 (11:23→22:07)
[2022-07-13] MEDS: VANCOMYCIN 1GM/250ML 250 ML IV SCH (15:40)
[2022-07-13] MEDS: SACUBITRIL-VALSARTAN 24mg/26mg TAB PO SCH (22:05)
[2022-07-13] MEDS: ATORVASTATIN 20 MG TAB PO SCH (22:06)
[2022-07-13 23:29] VITALS: BP 145/94
[2022-07-14] MEDS: TEMAZEPAM 15 MG CAP PO PRN ×2 (00:05→23:23)
[2022-07-14] MEDS: VANCOMYCIN 1GM/250ML 250 ML IV SCH ×3 (00:05→19:31)
[2022-07-14] MEDS: CEFEPIME 2 GM in SODIUM CHL 0.9% 50 ML IV SCH ×4 (03:00→20:41)
[2022-07-14 05:00] VITALS: BP 134/80
[2022-07-14 05:07] LABS: Basophils # (auto) 0.1 10 ^3/uL (0-0.2); Eosinophils # (auto) 0.6 10 ^3/uL (0-0.8); Hemoglobin 11.2 g/dL (13.5-17.5); Lymphocytes # (auto) 0.9 10 ^3/uL (0.4-5.4); Monocytes # (auto) 0.5 10 ^3/uL (0-1.3); Nucleated Red Blood Cells % 0.1 %; White Blood Cell 5.9 10^3/uL (4.4-10.8)
[2022-07-14 05:09] LABS: Eosinophils % (auto) 10.7 % (0.0-7.0); Hematocrit 34.8 % (41.0-53.0); Lymphocytes % (auto) 15.7 % (10.0-50.0); Mean Corpuscular Hemoglobin 21.8 pg (28.0-32.0); Mean Corpuscular Hgb Conc. 32.1 g/dL (32.0-36.0); Mean Corpuscular Volume 67.8 fL (80.0-100.0); Monocytes % (auto) 8.5 % (0.0-12.0); Neutrophils # (auto) 3.8 10 ^3/uL (1.6-8.6); Neutrophils % (auto) 64.1 % (37.0-80.0); Red Blood Cells 5.13 10^6/uL (4.5-5.90); Red Cell Distribution Width 18.6 % (11.8-14.3)
[2022-07-14 05:26] LABS: Calcium 8.5 mg/dL (8.5-10.1); Potassium 3.7 mmol/L (3.5-5.1)
[2022-07-14 05:31] LABS: Albumin 2.9 g/dL (3.4-5.0); BUN/Creatinine Ratio 20.8; Magnesium 1.7 mg/dL (1.6-2.6); Phosphorus 3.5 mg/dL (2.5-4.90); Total Protein 6.6 g/dL (6.4-8.2)
[2022-07-14] MEDS: HYDROcodone-ACET 5/325MG TAB PO PRN (10:24)
[2022-07-14] MEDS: SACUBITRIL-VALSARTAN 24mg/26mg TAB PO SCH ×2 (10:25→22:22)
[2022-07-14] MEDS: ZINC SULFATE 220mg CAP or TAB PO SCH (10:25)
[2022-07-14] MEDS: ALLOPURINOL 100 MG TAB PO SCH ×2 (10:26→22:23)
[2022-07-14] MEDS: MULTIPLE VITAMIN TAB PO SCH (10:26)
[2022-07-14] MEDS: ASCORBIC ACID 500 MG TAB PO SCH ×2 (10:27→22:23)
[2022-07-14] MEDS: amLODIPine BESYLATE 5 MG TAB PO SCH (10:27)
[2022-07-14] MEDS: FUROSEMIDE 40 MG TAB PO SCH ×2 (10:27→22:22)
[2022-07-14] MEDS: CARVEDILOL 12.5 MG TAB PO SCH ×2 (10:28→22:22)
[2022-07-14 13:00] VITALS: BP 155/98
[2022-07-14] MEDS ORDERED: CATHFLO ACTIVASE (ALTEPLASE) 2 MG VIAL IV ONE (15:00)
[2022-07-14 16:39] VITALS: BP 158/83
[2022-07-14 22:00] VITALS: BP 160/82
[2022-07-14] MEDS: ATORVASTATIN 20 MG TAB PO SCH (22:22)
[2022-07-15 05:00] VITALS: BP 173/88
[2022-07-15] MEDS: CEFEPIME 2 GM in SODIUM CHL 0.9% 50 ML IV SCH ×3 (06:00→19:43)
[2022-07-15 06:42] LABS: Albumin 2.8 g/dL (3.4-5.0); BUN/Creatinine Ratio 18.3; Calcium 8.2 mg/dL (8.5-10.1); Phosphorus 3.7 mg/dL (2.5-4.90); Potassium 3.3 mmol/L (3.5-5.1)
[2022-07-15] MEDS: CARVEDILOL 12.5 MG TAB PO SCH ×2 (07:37→21:45)
[2022-07-15] MEDS: SACUBITRIL-VALSARTAN 24mg/26mg TAB PO SCH ×2 (07:38→21:44)
[2022-07-15] MEDS: ZINC SULFATE 220mg CAP or TAB PO SCH (07:38)
[2022-07-15] MEDS: MULTIPLE VITAMIN TAB PO SCH (07:39)
[2022-07-15] MEDS: FUROSEMIDE 40 MG TAB PO SCH ×2 (07:39→21:45)
[2022-07-15] MEDS: ASCORBIC ACID 500 MG TAB PO SCH ×2 (07:40→21:44)
[2022-07-15] MEDS: ALLOPURINOL 100 MG TAB PO SCH ×2 (07:40→21:43)
[2022-07-15] MEDS: amLODIPine BESYLATE 5 MG TAB PO SCH (07:40)
[2022-07-15] MEDS: HYDROcodone-ACET 5/325MG TAB PO PRN ×2 (07:51→17:28)
[2022-07-15] MEDS ORDERED: hydrALAZINE HCL 20 MG/ML VL IV PRN (08:30)
[2022-07-15 09:00] VITALS: BP 157/100
[2022-07-15 12:58] VITALS: BP 133/97
[2022-07-15] MEDS: VANCOMYCIN 1GM/250ML 250 ML IV SCH (15:18)
[2022-07-15 16:48] VITALS: BP 136/84
[2022-07-15] MEDS: ATORVASTATIN 20 MG TAB PO SCH (21:46)
[2022-07-15 22:00] VITALS: BP 148/92
[2022-07-15] MEDS: TEMAZEPAM 15 MG CAP PO PRN (22:11)
[2022-07-16] MEDS: HYDROcodone-ACET 5/325MG TAB PO PRN ×4 (01:15→21:57)
[2022-07-16] MEDS: VANCOMYCIN 1GM/250ML 250 ML IV SCH ×2 (03:13→17:41)
[2022-07-16] MEDS: CEFEPIME 2 GM in SODIUM CHL 0.9% 50 ML IV SCH ×3 (04:32→19:48)
[2022-07-16 05:00] VITALS: BP 129/73
[2022-07-16 05:00] LABS: Basophils # (auto) 0 10 ^3/uL (0-0.2); Monocytes # (auto) 0.7 10 ^3/uL (0-1.3)
[2022-07-16 05:05] LABS: Basophils % (auto) 0.8 % (0.0-2.0); Eosinophils # (auto) 0.4 10 ^3/uL (0-0.8); Eosinophils % (auto) 7.4 % (0.0-7.0); Hematocrit 36.6 % (41.0-53.0); Hemoglobin 11.3 g/dL (13.5-17.5); Lymphocytes # (auto) 0.7 10 ^3/uL (0.4-5.4); Lymphocytes % (auto) 12.8 % (10.0-50.0); Mean Corpuscular Hemoglobin 20.9 pg (28.0-32.0); Mean Corpuscular Hgb Conc. 30.9 g/dL (32.0-36.0); Mean Corpuscular Volume 67.6 fL (80.0-100.0); Monocytes % (auto) 11.6 % (0.0-12.0); Neutrophils # (auto) 3.9 10 ^3/uL (1.6-8.6); Neutrophils % (auto) 67.4 % (37.0-80.0); Red Blood Cells 5.42 10^6/uL (4.5-5.90); Red Cell Distribution Width 18.6 % (11.8-14.3); White Blood Cell 5.8 10^3/uL (4.4-10.8)
[2022-07-16 05:27] LABS: Calcium 8.4 mg/dL (8.5-10.1); Potassium 3.3 mmol/L (3.5-5.1)
[2022-07-16 05:30] LABS: BUN/Creatinine Ratio 17.2
[2022-07-16 09:00] VITALS: BP 143/86
[2022-07-16] MEDS: FUROSEMIDE 40 MG TAB PO SCH ×2 (09:10→21:59)
[2022-07-16] MEDS: CARVEDILOL 12.5 MG TAB PO SCH ×2 (09:10→21:59)
[2022-07-16] MEDS: ZINC SULFATE 220mg CAP or TAB PO SCH (09:10)
[2022-07-16] MEDS: ASCORBIC ACID 500 MG TAB PO SCH ×2 (09:10→21:59)
[2022-07-16] MEDS: ALLOPURINOL 100 MG TAB PO SCH ×2 (09:10→21:59)
[2022-07-16] MEDS: MULTIPLE VITAMIN TAB PO SCH (09:10)
[2022-07-16] MEDS: amLODIPine BESYLATE 5 MG TAB PO SCH (09:11)
[2022-07-16] MEDS: SACUBITRIL-VALSARTAN 24mg/26mg TAB PO SCH ×2 (09:11→21:55)
[2022-07-16 13:17] VITALS: BP 140/88
[2022-07-16 16:46] VITALS: BP 151/97
[2022-07-16 21:57] VITALS: BP 149/96
[2022-07-16] MEDS: ATORVASTATIN 20 MG TAB PO SCH (21:57)
[2022-07-17] MEDS: TEMAZEPAM 15 MG CAP PO PRN (01:15)
[2022-07-17] MEDS: CEFEPIME 2 GM in SODIUM CHL 0.9% 50 ML IV SCH ×2 (03:17→11:00)
[2022-07-17 05:00] VITALS: BP 147/90
[2022-07-17] MEDS: VANCOMYCIN 1GM/250ML 250 ML IV SCH (07:57)
[2022-07-17] MEDS: HYDROcodone-ACET 5/325MG TAB PO PRN ×2 (07:58→15:56)
[2022-07-17 09:00] VITALS: BP 149/87
[2022-07-17] MEDS: ASCORBIC ACID 500 MG TAB PO SCH (10:01)
[2022-07-17] MEDS: MULTIPLE VITAMIN TAB PO SCH (10:01)
[2022-07-17] MEDS: ALLOPURINOL 100 MG TAB PO SCH (10:02)
[2022-07-17] MEDS: amLODIPine BESYLATE 5 MG TAB PO SCH (10:03)
[2022-07-17] MEDS: FUROSEMIDE 40 MG TAB PO SCH (10:03)
[2022-07-17] MEDS: CARVEDILOL 12.5 MG TAB PO SCH (10:04)
[2022-07-17] MEDS: SACUBITRIL-VALSARTAN 24mg/26mg TAB PO SCH (10:04)
[2022-07-17] MEDS: ZINC SULFATE 220mg CAP or TAB PO SCH (10:04)
[2022-07-17] MEDS ORDERED: HYDR-4902 PO (12:23)
[2022-07-17 12:43] VITALS: BP 144/89
[2022-07-17 17:00] VITALS: BP 145/94
== END 2022-07-17 17:45 | disposition home health service (06) | DRG 813 ==
LOC: ER 05:16 → EDBD 05:16 → TELE 10:07 → TELE-EAST 23:26
PROVIDERS: ADMIT Nurse Practitioner; ATTEND Nurse Practitioner
DX: L76.32 Postprocedural hematoma of skin and subcutaneous tissue following other procedure (principal); N17.9 Acute kidney failure, unspecified; I42.9 Cardiomyopathy, unspecified; I50.22 Chronic systolic (congestive) heart failure; I13.0 Hypertensive heart and chronic kidney disease with heart failure and stage 1 through stage 4 chronic kidney disease, or unspecified chronic kidney disease; N18.9 Chronic kidney disease, unspecified; E66.9 Obesity, unspecified; I25.10 Atherosclerotic heart disease of native coronary artery without angina pectoris; J44.9 Chronic obstructive pulmonary disease, unspecified; Z20.822 Contact with and (suspected) exposure to COVID-19; R73.03 Prediabetes; I45.9 Conduction disorder, unspecified; M10.9 Gout, unspecified; Y83.1 Surgical operation with implant of artificial internal device as the cause of abnormal reaction of the patient, or of later complication, without mention of misadventure at the time of the procedure; Z71.3 Dietary counseling and surveillance; Y92.89 Other specified places as the place of occurrence of the external cause; Z79.01 Long term (current) use of anticoagulants; Z79.899 Other long term (current) drug therapy; Z86.14 Personal history of Methicillin resistant Staphylococcus aureus infection; Z86.73 Personal history of transient ischemic attack (TIA), and cerebral infarction without residual deficits; Z87.891 Personal history of nicotine dependence; Z91.19 Patient's noncompliance with other medical treatment and regimen; Z95.810 Presence of automatic (implantable) cardiac defibrillator; I25.2 Old myocardial infarction; Z68.33 Body mass index [BMI] 33.0-33.9, adult; X58.XXXA Exposure to other specified factors, initial encounter; Y93.9 Activity, unspecified; Y99.8 Other external cause status
CPT/HCPCS: 36415; 71045; 71260; 76604; 80048; 80053; 80069; 80202; 83735; 83880; 84100; 84484; 85025; 85610; 85730; 87081; 93005; 96365; 96367; 99291; G0378

== ENCOUNTER 2022-07-22 05:59 | Inpatient (IN) | payer MEDICAID ==
[~2022-07-22] VITALS: Ht 167.6 cm; Wt 94.0 kg
[~2022-07-22 05:59] MED LIST changes: -APIX5TAB PO; -ASPI-325 PO; +HYDR-4902 PO
[2022-07-22 07:10] LABS: Eosinophils # (auto) 0.4 10 ^3/uL (0-0.8); Hemoglobin 11.5 g/dL (13.5-17.5); Lymphocytes # (auto) 0.9 10 ^3/uL (0.4-5.4); Monocytes # (auto) 0.7 10 ^3/uL (0-1.3); Neutrophils # (auto) 5.2 10 ^3/uL (1.6-8.6)
[2022-07-22 07:15] LABS: Basophils # (auto) 0.1 10 ^3/uL (0-0.2); Basophils % (auto) 0.8 % (0.0-2.0); Hematocrit 36.8 % (41.0-53.0); Lymphocytes % (auto) 12.5 % (10.0-50.0); Mean Corpuscular Hemoglobin 21.3 pg (28.0-32.0); Mean Corpuscular Hgb Conc. 31.4 g/dL (32.0-36.0); Mean Corpuscular Volume 67.8 fL (80.0-100.0); Monocytes % (auto) 9.4 % (0.0-12.0); Neutrophils % (auto) 72.3 % (37.0-80.0); Red Blood Cells 5.43 10^6/uL (4.5-5.90); Red Cell Distribution Width 18.5 % (11.8-14.3); White Blood Cell 7.1 10^3/uL (4.4-10.8)
[2022-07-22] MEDS ORDERED: INDOMETHACIN 25 MG CAP PO ONE (07:30)
[2022-07-22 07:41] LABS: Albumin 2.9 g/dL (3.4-5.0); BUN/Creatinine Ratio 20.3; Calcium 8.5 mg/dL (8.5-10.1); Potassium 3.3 mmol/L (3.5-5.1)
[2022-07-22 07:44] LABS: Bilirubin, Total 0.7 mg/dL (0.2-1.0); Total Protein 7.2 g/dL (6.4-8.2)
[2022-07-22] MEDS ORDERED: ONDANSETRON HCL 4 MG/2 ML VIAL IV ONE (07:45)
[2022-07-22] MEDS ORDERED: cloNIDine HCL 0.1 MG TAB PO ONE (07:45)
[2022-07-22] MEDS ORDERED: HYDROmorphone HCL 2 MG/ML VL/or syr IV ONE (07:45)
[2022-07-22 09:43] LABS: Urine Bacteria NONE SEEN /hpf (None Seen); Urine Blood TRACE /uL (Negative); Urine Specific Gravity 1.022 (1.001-1.035); Urine WBC 2 /hpf (0 - 3)
[2022-07-22] MEDS ORDERED: DOCUSATE SOD 100 MG CAP PO PRN (12:45)
[2022-07-22] MEDS ORDERED: TEMAZEPAM 15 MG CAP PO PRN (12:45)
[2022-07-22] MEDS ORDERED: NITROGLYCERIN 0.4 MG SL TAB SL PRN (12:45)
[2022-07-22] MEDS ORDERED: HYDROcodone-ACET 5/325MG TAB PO PRN (12:45)
[2022-07-22] MEDS ORDERED: ACETAMINOPHEN 325 MG TAB PO PRN (12:45)
[2022-07-22] MEDS ORDERED: MORPHINE SULFATE INJ 2 MG/ml SYRG IV PRN ×2 (12:45)
[2022-07-22] MEDS ORDERED: ONDANSETRON HCL 4 MG/2 ML VIAL IV PRN (12:45)
[2022-07-22 22:00] VITALS: BP 178/119
[2022-07-22] MEDS: POTASSIUM CHL 20 Meq TABLET PO SCH (22:07)
[2022-07-22] MEDS: ALLOPURINOL 100 MG TAB PO SCH (22:07)
[2022-07-22] MEDS: CARVEDILOL 12.5 MG TAB PO SCH (22:24)
[2022-07-22] MEDS: FUROSEMIDE 40 MG TAB PO SCH (22:25)
[2022-07-22] MEDS ORDERED: WARF5TAB71 PO (23:40)
[2022-07-22 23:42] VITALS: BP 136/90
[2022-07-23 05:00] VITALS: BP_SYST 156; BP_SYST 161; BP_DIAS 102; BP_DIAS 106
[2022-07-23] MEDS ORDERED: hydrALAZINE HCL 20 MG/ML VL IV PRN (05:15)
[2022-07-23 07:19] LABS: Lymphocytes % (auto) 19.9 % (10.0-50.0); Nucleated Red Blood Cells % 0.1 %; White Blood Cell 5.1 10^3/uL (4.4-10.8)
[2022-07-23 07:22] LABS: Basophils # (auto) 0.1 10 ^3/uL (0-0.2); Basophils % (auto) 1.1 % (0.0-2.0); Eosinophils # (auto) 0.5 10 ^3/uL (0-0.8); Eosinophils % (auto) 8.9 % (0.0-7.0); Hematocrit 33.7 % (41.0-53.0); Hemoglobin 10.6 g/dL (13.5-17.5); Mean Corpuscular Hemoglobin 21.2 pg (28.0-32.0); Mean Corpuscular Hgb Conc. 31.5 g/dL (32.0-36.0); Mean Corpuscular Volume 67.2 fL (80.0-100.0); Monocytes # (auto) 0.5 10 ^3/uL (0-1.3); Neutrophils # (auto) 3.1 10 ^3/uL (1.6-8.6); Neutrophils % (auto) 61.1 % (37.0-80.0); Red Blood Cells 5.01 10^6/uL (4.5-5.90); Red Cell Distribution Width 17.7 % (11.8-14.3)
[2022-07-23 07:35] LABS: Potassium 3.9 mmol/L (3.5-5.1)
[2022-07-23 07:48] LABS: Albumin 2.6 g/dL (3.4-5.0); BUN/Creatinine Ratio 23.4; Bilirubin, Total 0.8 mg/dL (0.2-1.0); Calcium 8.1 mg/dL (8.5-10.1); Total Protein 6.4 g/dL (6.4-8.2)
[2022-07-23 09:00] VITALS: BP 146/96
[2022-07-23] MEDS: CARVEDILOL 12.5 MG TAB PO SCH (09:54)
[2022-07-23] MEDS: POTASSIUM CHL 20 Meq TABLET PO SCH (09:54)
[2022-07-23] MEDS: FUROSEMIDE 40 MG TAB PO SCH (09:55)
[2022-07-23] MEDS: ALLOPURINOL 100 MG TAB PO SCH (09:55)
[2022-07-23] MEDS ORDERED: amLODIPine BESYLATE 5 MG TAB PO SCH (10:00)
[2022-07-23 13:00] VITALS: BP 156/103
[2022-07-23 17:00] VITALS: BP 159/89
[2022-07-23] MEDS ORDERED: ALLO100T PO (18:10)
== END 2022-07-23 19:10 | disposition home or self-care (01) | DRG 351 ==
LOC: ER 05:59 → TELE 12:42 → TELE-WESTW 21:45
PROVIDERS: ADMIT Nurse Practitioner; ATTEND Nurse Practitioner
DX: M10.9 Gout, unspecified (principal); I50.43 Acute on chronic combined systolic (congestive) and diastolic (congestive) heart failure; Z20.822 Contact with and (suspected) exposure to COVID-19; I13.0 Hypertensive heart and chronic kidney disease with heart failure and stage 1 through stage 4 chronic kidney disease, or unspecified chronic kidney disease; I42.0 Dilated cardiomyopathy; E78.00 Pure hypercholesterolemia, unspecified; I25.10 Atherosclerotic heart disease of native coronary artery without angina pectoris; J44.9 Chronic obstructive pulmonary disease, unspecified; E66.9 Obesity, unspecified; F15.10 Other stimulant abuse, uncomplicated; N18.30 Chronic kidney disease, stage 3 unspecified; Z86.73 Personal history of transient ischemic attack (TIA), and cerebral infarction without residual deficits; Z87.891 Personal history of nicotine dependence; I25.2 Old myocardial infarction; Z68.33 Body mass index [BMI] 33.0-33.9, adult; S20.212A Contusion of left front wall of thorax, initial encounter
CPT/HCPCS: 36415; 71045; 80053; 81001; 83880; 84484; 84550; 85025; 87081; 93005; 96374; 96375; G0378; J2405

== ENCOUNTER 2022-10-22 04:17 | Inpatient (IN) | payer MEDICAID ==
[~2022-10-22] VITALS: Ht 167.6 cm; Wt 103.9 kg
[~2022-10-22 04:17] MED LIST changes: +WARF5TAB71 PO
[2022-10-22 06:13] LABS: Basophils # (auto) 0 10 ^3/uL (0-0.2); Basophils % (auto) 0.8 % (0.0-2.0); Eosinophils # (auto) 0.8 10 ^3/uL (0-0.8); Eosinophils % (auto) 13.3 % (0.0-7.0); Hematocrit 45.7 % (41.0-53.0); Hemoglobin 14.1 g/dL (13.5-17.5); Lymphocytes % (auto) 17.1 % (10.0-50.0); Mean Corpuscular Hemoglobin 21.4 pg (28.0-32.0); Mean Corpuscular Hgb Conc. 30.8 g/dL (32.0-36.0); Mean Corpuscular Volume 69.4 fL (80.0-100.0); Monocytes # (auto) 0.7 10 ^3/uL (0-1.3); Neutrophils # (auto) 3.5 10 ^3/uL (1.6-8.6); Neutrophils % (auto) 56.8 % (37.0-80.0); Red Blood Cells 6.59 10^6/uL (4.5-5.90); Red Cell Distribution Width 19.5 % (11.8-14.3); White Blood Cell 6.1 10^3/uL (4.4-10.8)
[2022-10-22 06:29] LABS: Albumin 3.2 g/dL (3.4-5.0); Calcium 8.6 mg/dL (8.5-10.1); Potassium 3.6 mmol/L (3.5-5.1)
[2022-10-22 06:35] LABS: BUN/Creatinine Ratio 13.7; Bilirubin, Total 1.2 mg/dL (0.2-1.0); Total Protein 6.9 g/dL (6.4-8.2)
[2022-10-22] MEDS ORDERED: hydrALAZINE HCL 20 MG/ML VL IV ONE (07:00)
[2022-10-22] MEDS ORDERED: HEPARIN SODIUM (PORCINE) 5000 UNITS/ML 1ML VIAL IV ONE (08:00)
[2022-10-22 08:45] LABS: Urine Bacteria NONE SEEN /hpf (None Seen); Urine Blood TRACE /uL (Negative); Urine Specific Gravity 1.018 (1.001-1.035); Urine WBC 2 /hpf (0 - 3)
[2022-10-22] MEDS ORDERED: FUROSEMIDE 100 MG/10ML VIAL IV ONE (11:30)
[2022-10-22] MEDS ORDERED: ACETAMINOPHEN 325 MG TAB PO PRN (15:45)
[2022-10-22] MEDS ORDERED: HYDROcodone-ACET 5/325MG TAB PO PRN ×2 (15:45)
[2022-10-22] MEDS ORDERED: ONDANSETRON HCL 4 MG/2 ML VIAL IV PRN (15:45)
[2022-10-22] MEDS ORDERED: NITROGLYCERIN 0.4 MG SL TAB SL PRN (15:45)
[2022-10-22] MEDS ORDERED: MORPHINE SULFATE INJ 2 MG/ml SYRG IV PRN (15:45)
[2022-10-22] MEDS ORDERED: DOCUSATE SOD 100 MG CAP PO PRN (15:45)
[2022-10-22 17:04] LABS: Hematocrit 44.5 % (41.0-53.0); Hemoglobin 14.2 g/dL (13.5-17.5); Mean Corpuscular Hemoglobin 22.1 pg (28.0-32.0); Mean Corpuscular Volume 68.9 fL (80.0-100.0); Red Blood Cells 6.45 10^6/uL (4.5-5.90); Red Cell Distribution Width 19.4 % (11.8-14.3); White Blood Cell 5.5 10^3/uL (4.4-10.8)
[2022-10-22 17:07] LABS: Band Neutrophils % (manual) 0; Basophils % (manual) 0 (0.0-2.0); Blast Cells 0; Metamyelocytes % 0; Myelocytes % 0; Promyelocytes % 0; Reactive Lymphocytes 0
[2022-10-22 17:17] LABS: BUN/Creatinine Ratio 12.4; INR 1.06 (0.9-1.15); Potassium 3.2 mmol/L (3.5-5.1)
[2022-10-22 17:21] LABS: Calcium 8.8 mg/dL (8.5-10.1)
[2022-10-22] MEDS ORDERED: WARFARIN SODIUM 5 MG TAB PO ONE (17:45)
[2022-10-22] MEDS ORDERED: FUROSEMIDE 100 MG/10ML VIAL IV SCH (18:00)
[2022-10-22] MEDS: FUROSEMIDE 40 MG TAB PO SCH (18:16)
[2022-10-22 18:41] LABS: Eosinophils % (manual) 16 (0-7); Lymphocytes % (manual) 17 (10.0-50.0); Monocytes % (manual) 10 (0-12)
[2022-10-22] MEDS: ALLOPURINOL 100 MG TAB PO SCH (21:26)
[2022-10-23] MEDS: SACUBITRIL-VALSARTAN 24mg/26mg TAB PO SCH ×3 (00:01→22:26)
[2022-10-23] MEDS: POTASSIUM CHL 20 Meq TABLET PO SCH ×3 (00:03→22:26)
[2022-10-23] MEDS: CARVEDILOL 12.5 MG TAB PO SCH ×3 (00:03→22:29)
[2022-10-23 05:00] VITALS: BP 150/101
[2022-10-23 05:46] LABS: INR 1.03 (0.9-1.15); Partial Thromboplastin Time 27.1 sec (24.6-33.4)
[2022-10-23] MEDS: FUROSEMIDE 40 MG TAB PO SCH ×2 (06:09→17:26)
[2022-10-23] MEDS: ALLOPURINOL 100 MG TAB PO SCH ×2 (08:53→17:26)
[2022-10-23] MEDS: cefTRIAXone 1GM/50ML D5W 50 ML IV SCH (08:53)
[2022-10-23] MEDS: amLODIPine BESYLATE 5 MG TAB PO SCH (08:54)
[2022-10-23] MEDS: PANTOPRAZOLE 40 MG TAB PO SCH (08:54)
[2022-10-23] MEDS ORDERED: WARFARIN SODIUM 5 MG TAB PO SCH (10:00)
[2022-10-23] MEDS: AZITHROMYCIN 500MG/ 250ML 250 ML IV SCH (10:15)
[2022-10-23 13:00] VITALS: BP 134/102
[2022-10-23] MEDS ORDERED: WARFARIN SODIUM 5 MG TAB PO ONE ×2 (17:00)
[2022-10-23 17:08] VITALS: BP 118/90
[2022-10-23 20:15] VITALS: BP 106/65
[2022-10-23 22:00] VITALS: BP 106/65
[2022-10-24 05:00] VITALS: BP 141/101
[2022-10-24] MEDS: FUROSEMIDE 40 MG TAB PO SCH (05:53)
[2022-10-24 06:04] LABS: Basophils # (auto) 0 10 ^3/uL (0-0.2); Eosinophils # (auto) 0.7 10 ^3/uL (0-0.8); Monocytes # (auto) 0.5 10 ^3/uL (0-1.3)
[2022-10-24 06:07] LABS: Basophils % (auto) 0.7 % (0.0-2.0); Eosinophils % (auto) 13.4 % (0.0-7.0); Hematocrit 43.2 % (41.0-53.0); Hemoglobin 13.6 g/dL (13.5-17.5); Lymphocytes # (auto) 1.7 10 ^3/uL (0.4-5.4); Lymphocytes % (auto) 34.1 % (10.0-50.0); Mean Corpuscular Hemoglobin 21.8 pg (28.0-32.0); Mean Corpuscular Hgb Conc. 31.4 g/dL (32.0-36.0); Mean Corpuscular Volume 69.3 fL (80.0-100.0); Neutrophils # (auto) 2.1 10 ^3/uL (1.6-8.6); Neutrophils % (auto) 41.8 % (37.0-80.0); Nucleated Red Blood Cells % 0.2 %; Red Blood Cells 6.24 10^6/uL (4.5-5.90); Red Cell Distribution Width 18.8 % (11.8-14.3)
[2022-10-24 06:10] LABS: INR 1.06 (0.9-1.15); Partial Thromboplastin Time 26.5 sec (24.6-33.4)
[2022-10-24] MEDS ORDERED: SACU1TAB PO (06:23)
[2022-10-24 06:55] LABS: Albumin 2.8 g/dL (3.4-5.0); Calcium 8.3 mg/dL (8.5-10.1)
[2022-10-24 06:57] LABS: BUN/Creatinine Ratio 17.4; Phosphorus 2.8 mg/dL (2.5-4.90)
[2022-10-24 07:37] VITALS: BP 141/105
[2022-10-24] MEDS: ALLOPURINOL 100 MG TAB PO SCH (08:22)
[2022-10-24] MEDS: cefTRIAXone 1GM/50ML D5W 50 ML IV SCH (08:22)
[2022-10-24] MEDS: PANTOPRAZOLE 40 MG TAB PO SCH (08:23)
[2022-10-24] MEDS: SACUBITRIL-VALSARTAN 24mg/26mg TAB PO SCH (08:23)
[2022-10-24] MEDS: POTASSIUM CHL 20 Meq TABLET PO SCH (08:25)
[2022-10-24] MEDS: CARVEDILOL 12.5 MG TAB PO SCH (08:26)
[2022-10-24] MEDS: amLODIPine BESYLATE 5 MG TAB PO SCH (08:26)
[2022-10-24 08:47] VITALS: BP 139/105
[2022-10-24] MEDS: AZITHROMYCIN 500MG/ 250ML 250 ML IV SCH (09:37)
== END 2022-10-24 12:00 | disposition home or self-care (01) | DRG 139 ==
LOC: ER 04:17 → TELE 15:36 → TELE-WESTW 22:39
PROVIDERS: ADMIT Internal Medicine; ATTEND Internal Medicine
DX: J18.9 Pneumonia, unspecified organism (principal); N17.0 Acute kidney failure with tubular necrosis; I50.23 Acute on chronic systolic (congestive) heart failure; I42.0 Dilated cardiomyopathy; J44.0 Chronic obstructive pulmonary disease with (acute) lower respiratory infection; B97.4 Respiratory syncytial virus as the cause of diseases classified elsewhere; I13.0 Hypertensive heart and chronic kidney disease with heart failure and stage 1 through stage 4 chronic kidney disease, or unspecified chronic kidney disease; M10.9 Gout, unspecified; R73.03 Prediabetes; Z20.822 Contact with and (suspected) exposure to COVID-19; G47.33 Obstructive sleep apnea (adult) (pediatric); E78.5 Hyperlipidemia, unspecified; N18.9 Chronic kidney disease, unspecified; Z79.899 Other long term (current) drug therapy; Z86.73 Personal history of transient ischemic attack (TIA), and cerebral infarction without residual deficits; Z87.891 Personal history of nicotine dependence; Z91.199 Patient's noncompliance with other medical treatment and regimen due to unspecified reason; Z95.810 Presence of automatic (implantable) cardiac defibrillator
CPT/HCPCS: 36415; 71046; 80048; 80053; 80069; 81001; 84484; 85007; 85025; 85027; 85379; 85610; 85730; 87426; 87804; 87807; 93005; 93306; 96374; 96375; 99291; G0378; J0696

== ENCOUNTER 2023-03-20 11:51 | Inpatient (IN) | payer MEDICAID ==
[~2023-03-20] VITALS: Ht 167.6 cm; Wt 99.0 kg
[~2023-03-20 11:51] MED LIST changes: +SACU1TAB PO; -SACU1TAB7 PO
[2023-03-20 12:26] LABS: Basophils # (auto) 0.1 10 ^3/uL (0-0.2); Eosinophils # (auto) 0.4 10 ^3/uL (0-0.8); Lymphocytes # (auto) 1.4 10 ^3/uL (0.4-5.4); Monocytes % (auto) 15.8 % (0.0-12.0); Nucleated Red Blood Cells % 0.2 %
[2023-03-20 12:28] LABS: Eosinophils % (auto) 6.3 % (0.0-7.0); Hematocrit 36.3 % (41.0-53.0); Hemoglobin 11.4 g/dL (13.5-17.5); Lymphocytes % (auto) 21.9 % (10.0-50.0); Mean Corpuscular Hemoglobin 21.6 pg (28.0-32.0); Mean Corpuscular Hgb Conc. 31.5 g/dL (32.0-36.0); Mean Corpuscular Volume 68.4 fL (80.0-100.0); Neutrophils # (auto) 3.5 10 ^3/uL (1.6-8.6); Red Cell Distribution Width 18.7 % (11.8-14.3); White Blood Cell 6.3 10^3/uL (4.4-10.8)
[2023-03-20 12:44] LABS: Albumin 3.9 g/dL (3.4-5.0); Calcium 8.5 mg/dL (8.5-10.1); Potassium 3.1 mmol/L (3.5-5.1)
[2023-03-20 12:45] LABS: INR 1.44 (0.9-1.15); Partial Thromboplastin Time 28.9 sec (24.6-33.4)
[2023-03-20 12:47] LABS: BUN/Creatinine Ratio 18.4 (10.0-20.0)
[2023-03-20] MEDS ORDERED: ENOXAPARIN SOD 100 MG/1 ML SYRINGE SC ONE (13:00)
[2023-03-20] MEDS ORDERED: POTASSIUM EFFERVESENT TAB 25 MEQ PO ONE (13:00)
[2023-03-20] MEDS ORDERED: FUROSEMIDE 40 MG/4 ML VIAL IV ONE (13:00)
[2023-03-20] MEDS ORDERED: MORPHINE SULFATE INJ 2 MG/ml SYRG IV PRN (14:45)
[2023-03-20] MEDS ORDERED: ONDANSETRON HCL 4 MG/2 ML VIAL IV PRN (14:45)
[2023-03-20] MEDS ORDERED: NITROGLYCERIN 0.4 MG SL TAB SL PRN (14:45)
[2023-03-20] MEDS ORDERED: DOCUSATE SOD 100 MG CAP PO PRN (14:45)
[2023-03-20] MEDS ORDERED: ACETAMINOPHEN 325 MG TAB PO PRN (14:45)
[2023-03-20] MEDS ORDERED: hydrALAZINE HCL 20 MG/ML VL IV PRN (15:00)
[2023-03-20] MEDS ORDERED: WARFARIN SODIUM 5 MG TAB PO ONE ×2 (15:00→15:45)
[2023-03-20] MEDS ORDERED: LABETALOL HCL 5 MG/ML 4ML SYRINGE IV PRN (15:00)
[2023-03-20] MEDS ORDERED: POTASSIUM CHL 20 Meq TABLET PO ONE (15:00)
[2023-03-20] MEDS ORDERED: SPIRONOLACTONE 25 MG TAB PO SCH (15:30)
[2023-03-20] MEDS ORDERED: LIDOCAINE 2% JELLY 11ml (GLYDO) UR ONE (17:30)
[2023-03-20] MEDS: diphenhdrAMINE HCL 25 MG CAP PO PRN (17:52)
[2023-03-20] MEDS: FUROSEMIDE 40 MG/4 ML VIAL IV SCH (17:59)
[2023-03-20] MEDS ORDERED: CARVEDILOL 12.5 MG TAB PO SCH (22:00)
[2023-03-20] MEDS: CARVEDILOL 12.5 MG TAB PO SCH (22:19)
[2023-03-20] MEDS: APIXABAN 5 MG TAB PO SCH (22:19)
[2023-03-20] MEDS: SODIUM CHLOR 0.9% PF (SALINE LOCK) 10ML VIAL/SYR IV SCH (22:20)
[2023-03-20] MEDS: POTASSIUM CHL 20 Meq TABLET PO SCH (22:20)
[2023-03-20] MEDS: ALLOPURINOL 100 MG TAB PO SCH (22:20)
[2023-03-20 22:25] LABS: Urine Bacteria FEW /hpf (None Seen); Urine Blood 3+ /uL (Negative); Urine Hyaline Cast MOD /lpf (0 - 2); Urine Specific Gravity 1.015 (1.001-1.035); Urine WBC 41 /hpf (0 - 3)
[2023-03-20 22:28] LABS: Protein, Urine 187.3 mg/dL (0.0-11.9)
[2023-03-21] MEDS ORDERED: HEPARIN DRIP/D5W 100UNITS/ML 250 ML IV SCH
[2023-03-21] MEDS: diphenhdrAMINE HCL 25 MG CAP PO PRN (03:28)
[2023-03-21] MEDS: SODIUM CHLOR 0.9% PF (SALINE LOCK) 10ML VIAL/SYR IV SCH ×3 (06:22→21:16)
[2023-03-21] MEDS: FUROSEMIDE 40 MG/4 ML VIAL IV SCH (06:22)
[2023-03-21 07:15] LABS: INR 1.5 (0.9-1.15)
[2023-03-21] MEDS ORDERED: FUROSEMIDE 40 MG/4 ML VIAL IV SCH (09:00)
[2023-03-21] MEDS: FUROSEMIDE 100 MG/10ML VIAL IV SCH ×2 (09:17→18:14)
[2023-03-21] MEDS: CARVEDILOL 12.5 MG TAB PO SCH ×2 (09:59→21:13)
[2023-03-21] MEDS ORDERED: AMIODARONE 450mg/250ml AE 250 ML IV SCH (10:00)
[2023-03-21] MEDS ORDERED: amLODIPine BESYLATE 5 MG TAB PO SCH (10:00)
[2023-03-21] MEDS: APIXABAN 5 MG TAB PO SCH ×2 (10:10→21:13)
[2023-03-21] MEDS ORDERED: GASTROGRAFIN 30 ML SOL ONE (10:11)
[2023-03-21] MEDS: POTASSIUM CHL 20 Meq TABLET PO SCH ×2 (10:12→21:14)
[2023-03-21] MEDS: ALLOPURINOL 100 MG TAB PO SCH ×2 (10:12→21:12)
[2023-03-21] MEDS: ATORVASTATIN 20 MG TAB PO SCH (10:12)
[2023-03-21 12:45] VITALS: BP 111/75
[2023-03-21 12:54] LABS: Alcohol, Urine < 3.0 mg/dL (0-10); Barbiturate Scree,Urine NEGATIVE (NEGATIVE); Benzodiazephine Screen, Urine NEGATIVE (NEGATIVE); Cannabinoid Screen, Urine NEGATIVE (NEGATIVE); Cocaine Screen, Urine NEGATIVE (NEGATIVE); Opiate Scree,Urine NEGATIVE (NEGATIVE); Phencyclidine Screen, Urine NEGATIVE (NEGATIVE)
[2023-03-21 13:23] LABS: Amphetamine Screen, Urine NEGATIVE (NEGATIVE)
[2023-03-21 16:00] LABS: BUN/Creatinine Ratio 16.7 (10.0-20.0); Calcium 8.5 mg/dL (8.5-10.1); Potassium 4.1 mmol/L (3.5-5.1)
[2023-03-21] MEDS: AMIODARONE 450mg/250ml AE 250 ML IV SCH (16:40)
[2023-03-21 17:00] VITALS: BP_SYST 119; BP_SYST 132; BP_DIAS 76; BP_DIAS 89
[2023-03-21 18:30] VITALS: BP 119/76
[2023-03-21] MEDS: hydrALAZINE HCL 25 MG TAB PO SCH (21:12)
[2023-03-21] MEDS: LOPERAMIDE HCL 2 MG CAP/TAB PO PRN (21:12)
[2023-03-21 22:00] VITALS: BP 137/67
[2023-03-22 05:00] VITALS: BP 120/98
[2023-03-22] MEDS: LOPERAMIDE HCL 2 MG CAP/TAB PO PRN (05:43)
[2023-03-22] MEDS: FUROSEMIDE 100 MG/10ML VIAL IV SCH (05:48)
[2023-03-22] MEDS: SODIUM CHLOR 0.9% PF (SALINE LOCK) 10ML VIAL/SYR IV SCH ×3 (05:48→21:47)
[2023-03-22 06:04] LABS: Basophils # (auto) 0.1 10 ^3/uL (0-0.2); Monocytes # (auto) 0.7 10 ^3/uL (0-1.3)
[2023-03-22 06:07] LABS: Basophils % (auto) 1.3 % (0.0-2.0); Eosinophils # (auto) 0.6 10 ^3/uL (0-0.8); Hematocrit 34.7 % (41.0-53.0); Hemoglobin 11.1 g/dL (13.5-17.5); Lymphocytes # (auto) 1.1 10 ^3/uL (0.4-5.4); Lymphocytes % (auto) 16.1 % (10.0-50.0); Mean Corpuscular Hemoglobin 22.3 pg (28.0-32.0); Mean Corpuscular Hgb Conc. 32.1 g/dL (32.0-36.0); Mean Corpuscular Volume 69.5 fL (80.0-100.0); Monocytes % (auto) 9.9 % (0.0-12.0); Neutrophils # (auto) 4.4 10 ^3/uL (1.6-8.6); Neutrophils % (auto) 64.7 % (37.0-80.0); Nucleated Red Blood Cells % 0.2 %; Red Blood Cells 4.99 10^6/uL (4.5-5.90); Red Cell Distribution Width 18.8 % (11.8-14.3); White Blood Cell 6.8 10^3/uL (4.4-10.8)
[2023-03-22 06:25] LABS: Albumin 3.8 g/dL (3.4-5.0); Calcium 8.6 mg/dL (8.5-10.1); Magnesium 1.7 mg/dL (1.6-2.6); Potassium 4.3 mmol/L (3.5-5.1)
[2023-03-22 06:28] LABS: BUN/Creatinine Ratio 15.6 (10.0-20.0); Bilirubin, Total 2.5 mg/dL (0.2-1.0); Total Protein 6.7 g/dL (6.4-8.2)
[2023-03-22 09:00] VITALS: BP 120/87
[2023-03-22] MEDS: AMIODARONE 450mg/250ml AE 250 ML IV SCH (09:28)
[2023-03-22] MEDS: ATORVASTATIN 20 MG TAB PO SCH (09:31)
[2023-03-22] MEDS: APIXABAN 5 MG TAB PO SCH ×2 (09:32→21:39)
[2023-03-22] MEDS: POTASSIUM CHL 20 Meq TABLET PO SCH ×2 (09:32→21:46)
[2023-03-22] MEDS: hydrALAZINE HCL 25 MG TAB PO SCH ×2 (09:32→21:47)
[2023-03-22] MEDS: CARVEDILOL 12.5 MG TAB PO SCH ×2 (09:32→21:40)
[2023-03-22] MEDS: ALLOPURINOL 100 MG TAB PO SCH ×2 (09:33→21:40)
[2023-03-22 13:00] VITALS: BP 83/61
[2023-03-22 17:00] VITALS: BP 89/65
[2023-03-22] MEDS: BUMETANIDE 2.5mg/10ml (0.25 mg/ml) INJ IV SCH (18:00)
[2023-03-22] MEDS: metOLazone 5 MG TAB PO SCH (21:41)
[2023-03-22 22:00] VITALS: BP 128/96
[2023-03-22 22:07] LABS: Urine Bacteria NONE SEEN /hpf (None Seen); Urine Blood 3+ /uL (Negative); Urine Mucus FEW (None Seen); Urine Specific Gravity 1.015 (1.001-1.035); Urine WBC 22 /hpf (0 - 3)
[2023-03-23] MEDS: AMIODARONE 450mg/250ml AE 250 ML IV SCH ×3 (02:40→18:06)
[2023-03-23 05:00] VITALS: BP 149/90
[2023-03-23] MEDS: BUMETANIDE 2.5mg/10ml (0.25 mg/ml) INJ IV SCH ×2 (05:14→17:50)
[2023-03-23] MEDS: SODIUM CHLOR 0.9% PF (SALINE LOCK) 10ML VIAL/SYR IV SCH ×4 (05:14→22:07)
[2023-03-23 06:30] LABS: Potassium 4.6 mmol/L (3.5-5.1)
[2023-03-23 06:43] LABS: Albumin 3.6 g/dL (3.4-5.0); BUN/Creatinine Ratio 16.4 (10.0-20.0); Bilirubin, Total 2.3 mg/dL (0.2-1.0); Calcium 8.6 mg/dL (8.5-10.1); Total Protein 6.5 g/dL (6.4-8.2)
[2023-03-23 09:00] VITALS: BP 107/81
[2023-03-23] MEDS: ALBUMIN 25% 100 ML IV SCH ×3 (10:03→23:40)
[2023-03-23] MEDS: ALLOPURINOL 100 MG TAB PO SCH ×2 (10:04→21:59)
[2023-03-23] MEDS: POTASSIUM CHL 20 Meq TABLET PO SCH ×2 (10:04→21:59)
[2023-03-23] MEDS: ATORVASTATIN 20 MG TAB PO SCH (10:04)
[2023-03-23] MEDS: CARVEDILOL 12.5 MG TAB PO SCH ×2 (10:05→22:00)
[2023-03-23] MEDS: hydrALAZINE HCL 25 MG TAB PO SCH ×2 (10:05→22:00)
[2023-03-23] MEDS: APIXABAN 5 MG TAB PO SCH ×2 (10:05→21:59)
[2023-03-23] MEDS: DOPamine 1600MCG/ML D5W 250 ML IV SCH (10:46)
[2023-03-23] MEDS ORDERED: MORPHINE SULFATE INJ 2 MG/ml SYRG IV PRN (11:30)
[2023-03-23 11:31] LABS: INR 1.67 (0.9-1.15); Partial Thromboplastin Time 29.5 sec (24.6-33.4)
[2023-03-23 13:00] VITALS: BP 128/99
[2023-03-23] MEDS: metOLazone 5 MG TAB PO SCH ×2 (15:49→21:57)
[2023-03-23 17:00] VITALS: BP 110/84
[2023-03-23 20:00] VITALS: BP 128/87
[2023-03-23 22:00] VITALS: BP 128/87
[2023-03-24] MEDS ORDERED: ALPRAZolam 0.5 MG TAB PO PRN (05:00)
[2023-03-24 05:50] LABS: Potassium 3.8 mmol/L (3.5-5.1)
[2023-03-24] MEDS: SODIUM CHLOR 0.9% PF (SALINE LOCK) 10ML VIAL/SYR IV SCH ×3 (05:52→22:21)
[2023-03-24] MEDS: BUMETANIDE 2.5mg/10ml (0.25 mg/ml) INJ IV SCH ×2 (05:53→18:11)
[2023-03-24 06:00] LABS: Bilirubin, Total 1.8 mg/dL (0.2-1.0); Calcium 8.7 mg/dL (8.5-10.1); Total Protein 6.8 g/dL (6.4-8.2)
[2023-03-24 08:00] VITALS: BP 122/93
[2023-03-24 09:00] VITALS: BP 122/93
[2023-03-24] MEDS: cefTRIAXone 1GM/50ML D5W 50 ML IV SCH (10:10)
[2023-03-24] MEDS: AMIODARONE 450mg/250ml AE 250 ML IV SCH (10:14)
[2023-03-24] MEDS: hydrALAZINE HCL 25 MG TAB PO SCH ×2 (10:18→22:21)
[2023-03-24] MEDS: APIXABAN 5 MG TAB PO SCH ×2 (10:18→22:19)
[2023-03-24] MEDS: ATORVASTATIN 20 MG TAB PO SCH (10:18)
[2023-03-24] MEDS: metOLazone 5 MG TAB PO SCH ×2 (10:18→22:21)
[2023-03-24] MEDS: ALLOPURINOL 100 MG TAB PO SCH ×2 (10:18→22:19)
[2023-03-24] MEDS: POTASSIUM CHL 20 Meq TABLET PO SCH ×2 (10:43→22:19)
[2023-03-24] MEDS: CARVEDILOL 12.5 MG TAB PO SCH ×2 (10:45→22:20)
[2023-03-24] MEDS: ALBUMIN 25% 100 ML IV SCH ×2 (11:11→18:12)
[2023-03-24] MEDS: DOPamine 1600MCG/ML D5W 250 ML IV SCH (12:36)
[2023-03-24 13:00] VITALS: BP 101/64
[2023-03-24] MEDS: HYDROcodone-ACET 5/325MG TAB PO PRN (13:54)
[2023-03-24] MEDS: diphenhdrAMINE HCL 25 MG CAP PO PRN (16:47)
[2023-03-24 17:00] VITALS: BP 116/78
[2023-03-24 20:00] VITALS: BP 125/94
[2023-03-24 22:00] VITALS: BP 125/94
[2023-03-25] MEDS: ALBUMIN 25% 100 ML IV SCH (00:58)
[2023-03-25 05:00] VITALS: BP 119/78
[2023-03-25] MEDS: SODIUM CHLOR 0.9% PF (SALINE LOCK) 10ML VIAL/SYR IV SCH ×3 (05:15→21:15)
[2023-03-25] MEDS: BUMETANIDE 2.5mg/10ml (0.25 mg/ml) INJ IV SCH ×3 (05:15→21:15)
[2023-03-25] MEDS: AMIODARONE 450mg/250ml AE 250 ML IV SCH ×2 (05:41→22:33)
[2023-03-25 05:43] LABS: Basophils % (auto) 0.9 % (0.0-2.0); Hemoglobin 10.1 g/dL (13.5-17.5); Lymphocytes # (auto) 0.9 10 ^3/uL (0.4-5.4); Mean Corpuscular Hgb Conc. 31.3 g/dL (32.0-36.0); Monocytes # (auto) 0.7 10 ^3/uL (0-1.3); Neutrophils % (auto) 60.1 % (37.0-80.0); Nucleated Red Blood Cells % 0.2 %; Red Blood Cells 4.61 10^6/uL (4.5-5.90)
[2023-03-25 05:46] LABS: Basophils # (auto) 0 10 ^3/uL (0-0.2); Eosinophils # (auto) 0.5 10 ^3/uL (0-0.8); Eosinophils % (auto) 9.7 % (0.0-7.0); Hematocrit 32.2 % (41.0-53.0); Lymphocytes % (auto) 16.5 % (10.0-50.0); Mean Corpuscular Hemoglobin 21.9 pg (28.0-32.0); Monocytes % (auto) 12.8 % (0.0-12.0); Neutrophils # (auto) 3.3 10 ^3/uL (1.6-8.6); Red Cell Distribution Width 18.4 % (11.8-14.3); White Blood Cell 5.5 10^3/uL (4.4-10.8)
[2023-03-25 08:00] VITALS: BP 139/75
[2023-03-25] MEDS: cefTRIAXone 1GM/50ML D5W 50 ML IV SCH (08:09)
[2023-03-25] MEDS: HYDROcodone-ACET 5/325MG TAB PO PRN (08:09)
[2023-03-25] MEDS: DOPamine 1600MCG/ML D5W 250 ML IV SCH (08:10)
[2023-03-25 09:04] LABS: Albumin 4.4 g/dL (3.4-5.0); Calcium 8.9 mg/dL (8.5-10.1); Potassium 3.2 mmol/L (3.5-5.1)
[2023-03-25 09:10] LABS: BUN/Creatinine Ratio 19.4 (10.0-20.0); Bilirubin, Total 1.7 mg/dL (0.2-1.0); Total Protein 7.2 g/dL (6.4-8.2)
[2023-03-25] MEDS: metOLazone 5 MG TAB PO SCH ×2 (09:28→21:18)
[2023-03-25] MEDS: CARVEDILOL 12.5 MG TAB PO SCH ×2 (09:29→21:17)
[2023-03-25] MEDS: hydrALAZINE HCL 25 MG TAB PO SCH ×2 (09:29→21:16)
[2023-03-25] MEDS: POTASSIUM CHL 20 Meq TABLET PO SCH ×2 (09:29→21:17)
[2023-03-25] MEDS: ALLOPURINOL 100 MG TAB PO SCH ×2 (09:29→21:18)
[2023-03-25] MEDS: APIXABAN 5 MG TAB PO SCH ×2 (09:29→21:17)
[2023-03-25] MEDS: ATORVASTATIN 20 MG TAB PO SCH (09:29)
[2023-03-25] MEDS ORDERED: POTASSIUM EFFERVESENT TAB 25 MEQ PO ONE (11:00)
[2023-03-25 12:00] VITALS: BP 120/75
[2023-03-25 16:00] VITALS: BP 125/87
[2023-03-25 20:00] VITALS: BP 127/98
[2023-03-25] MEDS: diphenhdrAMINE HCL 25 MG CAP PO PRN (21:21)
[2023-03-25 22:00] VITALS: BP 127/98
[2023-03-26 05:11] VITALS: BP 116/96
[2023-03-26] MEDS: SODIUM CHLOR 0.9% PF (SALINE LOCK) 10ML VIAL/SYR IV SCH ×3 (05:47→21:53)
[2023-03-26] MEDS: BUMETANIDE 2.5mg/10ml (0.25 mg/ml) INJ IV SCH ×3 (05:47→21:53)
[2023-03-26 09:00] VITALS: BP 146/99
[2023-03-26] MEDS: HYDROcodone-ACET 5/325MG TAB PO PRN (10:00)
[2023-03-26] MEDS: cefTRIAXone 1GM/50ML D5W 50 ML IV SCH (10:00)
[2023-03-26] MEDS: APIXABAN 5 MG TAB PO SCH ×2 (10:00→21:52)
[2023-03-26] MEDS: metOLazone 5 MG TAB PO SCH ×3 (10:01→21:52)
[2023-03-26] MEDS: ATORVASTATIN 20 MG TAB PO SCH (10:01)
[2023-03-26] MEDS: ALLOPURINOL 100 MG TAB PO SCH ×2 (10:01→21:53)
[2023-03-26] MEDS: POTASSIUM CHL 20 Meq TABLET PO SCH ×2 (10:01→21:52)
[2023-03-26] MEDS: hydrALAZINE HCL 25 MG TAB PO SCH ×2 (10:01→21:53)
[2023-03-26] MEDS: CARVEDILOL 12.5 MG TAB PO SCH ×2 (10:02→21:53)
[2023-03-26] MEDS: AMIODARONE 450mg/250ml AE 250 ML IV SCH (12:57)
[2023-03-26 13:00] VITALS: BP 121/74
[2023-03-26] MEDS: DOPamine 1600MCG/ML D5W 250 ML IV SCH (13:01)
[2023-03-26] MEDS ORDERED: diphenhdrAMINE HCL 25 MG CAP PO PRN (13:30)
[2023-03-26 14:18] LABS: Hematocrit 33.5 % (41.0-53.0); Hemoglobin 10.7 g/dL (13.5-17.5)
[2023-03-26 14:37] LABS: BUN/Creatinine Ratio 20.3 (10.0-20.0); Calcium 8.9 mg/dL (8.5-10.1); Potassium 3.5 mmol/L (3.5-5.1)
[2023-03-26 16:51] VITALS: BP 126/79
[2023-03-26 22:00] VITALS: BP 146/84
[2023-03-27 05:00] VITALS: BP 126/100
[2023-03-27] MEDS: BUMETANIDE 2.5mg/10ml (0.25 mg/ml) INJ IV SCH ×3 (05:47→21:24)
[2023-03-27] MEDS: SODIUM CHLOR 0.9% PF (SALINE LOCK) 10ML VIAL/SYR IV SCH ×3 (05:48→21:27)
[2023-03-27 08:05] VITALS: BP 128/85
[2023-03-27] MEDS: cefTRIAXone 1GM/50ML D5W 50 ML IV SCH (08:52)
[2023-03-27 09:00] VITALS: BP 128/85
[2023-03-27] MEDS: ALLOPURINOL 100 MG TAB PO SCH ×2 (09:55→21:26)
[2023-03-27] MEDS: POTASSIUM CHL 20 Meq TABLET PO SCH ×2 (09:55→21:25)
[2023-03-27] MEDS: ATORVASTATIN 20 MG TAB PO SCH (09:55)
[2023-03-27] MEDS: metOLazone 5 MG TAB PO SCH ×2 (09:55→21:25)
[2023-03-27] MEDS: APIXABAN 5 MG TAB PO SCH ×2 (09:56→21:25)
[2023-03-27] MEDS: CARVEDILOL 12.5 MG TAB PO SCH ×2 (09:56→21:26)
[2023-03-27] MEDS: hydrALAZINE HCL 25 MG TAB PO SCH ×2 (09:56→21:27)
[2023-03-27 13:00] VITALS: BP 116/72
[2023-03-27] MEDS: AMIODARONE 450mg/250ml AE 250 ML IV SCH (13:10)
[2023-03-27 13:39] LABS: Hemoglobin 10.8 g/dL (13.5-17.5)
[2023-03-27 14:16] LABS: Calcium 8.4 mg/dL (8.5-10.1); Potassium 3.1 mmol/L (3.5-5.1)
[2023-03-27 14:20] LABS: BUN/Creatinine Ratio 20.1 (10.0-20.0)
[2023-03-27] MEDS ORDERED: POTASSIUM CHL 20 Meq TABLET PO ONE (16:45)
[2023-03-27 17:00] VITALS: BP 136/81
[2023-03-27] MEDS: DOPamine 1600MCG/ML D5W 250 ML IV SCH (20:30)
[2023-03-27] MEDS: AMIODARONE HCL 200 MG TAB PO SCH (21:26)
[2023-03-27 22:00] VITALS: BP 120/94
[2023-03-28 05:00] VITALS: BP 124/65
[2023-03-28] MEDS: BUMETANIDE 2.5mg/10ml (0.25 mg/ml) INJ IV SCH ×3 (05:46→22:57)
[2023-03-28] MEDS: SODIUM CHLOR 0.9% PF (SALINE LOCK) 10ML VIAL/SYR IV SCH ×3 (05:50→23:05)
[2023-03-28 06:26] LABS: Hemoglobin 10.1 g/dL (13.5-17.5)
[2023-03-28 06:52] LABS: Albumin 3.8 g/dL (3.4-5.0); Calcium 8.6 mg/dL (8.5-10.1); Potassium 3.1 mmol/L (3.5-5.1)
[2023-03-28 06:56] LABS: Bilirubin, Total 1.5 mg/dL (0.2-1.0); Total Protein 6.8 g/dL (6.4-8.2)
[2023-03-28] MEDS: DOPamine 1600MCG/ML D5W 250 ML IV SCH (07:30)
[2023-03-28] MEDS ORDERED: POTASSIUM EFFERVESENT TAB 25 MEQ PO ONE (08:30)
[2023-03-28 09:00] VITALS: BP 131/101
[2023-03-28] MEDS: cefTRIAXone 1GM/50ML D5W 50 ML IV SCH (09:14)
[2023-03-28] MEDS: AMIODARONE HCL 200 MG TAB PO SCH ×2 (09:15→22:58)
[2023-03-28] MEDS: metOLazone 5 MG TAB PO SCH (09:15)
[2023-03-28] MEDS: APIXABAN 5 MG TAB PO SCH ×2 (09:15→22:58)
[2023-03-28] MEDS: ATORVASTATIN 20 MG TAB PO SCH (09:16)
[2023-03-28] MEDS: ALLOPURINOL 100 MG TAB PO SCH ×2 (09:16→22:58)
[2023-03-28] MEDS: POTASSIUM CHL 20 Meq TABLET PO SCH ×2 (09:16→23:00)
[2023-03-28] MEDS: CARVEDILOL 12.5 MG TAB PO SCH ×2 (09:16→22:58)
[2023-03-28] MEDS: hydrALAZINE HCL 25 MG TAB PO SCH ×2 (09:17→22:58)
[2023-03-28 17:00] VITALS: BP 100/66
[2023-03-28] MEDS ORDERED: MORPHINE SULFATE INJ 2 MG/ml SYRG IV PRN (17:30)
[2023-03-28 22:00] VITALS: BP 130/96
[2023-03-29 05:00] VITALS: BP 127/91
[2023-03-29] MEDS: BUMETANIDE 2.5mg/10ml (0.25 mg/ml) INJ IV SCH (06:11)
[2023-03-29] MEDS: SODIUM CHLOR 0.9% PF (SALINE LOCK) 10ML VIAL/SYR IV SCH (06:12)
[2023-03-29 09:00] VITALS: BP 146/94
[2023-03-29] MEDS: cefTRIAXone 1GM/50ML D5W 50 ML IV SCH (09:12)
[2023-03-29] MEDS: POTASSIUM CHL 20 Meq TABLET PO SCH (09:13)
[2023-03-29] MEDS: ATORVASTATIN 20 MG TAB PO SCH (09:13)
[2023-03-29] MEDS: AMIODARONE HCL 200 MG TAB PO SCH (09:13)
[2023-03-29] MEDS: CARVEDILOL 12.5 MG TAB PO SCH (09:14)
[2023-03-29] MEDS: APIXABAN 5 MG TAB PO SCH (09:14)
[2023-03-29] MEDS: hydrALAZINE HCL 25 MG TAB PO SCH (09:14)
[2023-03-29] MEDS: ALLOPURINOL 100 MG TAB PO SCH (09:14)
[2023-03-29] MEDS ORDERED: metOLazone 5 MG TAB PO SCH (10:00)
[2023-03-29] MEDS ORDERED: APIX5TAB PO (10:45)
[2023-03-29] MEDS ORDERED: METO2.5T PO ×3 (10:45→12:22)
[2023-03-29] MEDS ORDERED: BUMEX2MG PO (10:45)
[2023-03-29] MEDS ORDERED: ATOR-47 PO (10:45)
[2023-03-29] MEDS ORDERED: CAR125T PO ×2 (10:45)
[2023-03-29] MEDS ORDERED: AML5T PO (10:45)
[2023-03-29] MEDS ORDERED: POTA-220 PO (10:45)
[2023-03-29] MEDS ORDERED: DOCU100C10 PO (11:58)
[2023-03-29] MEDS ORDERED: AMIO200T33 PO (12:23)
[2023-03-29] MEDS ORDERED: HYDR-4902 PO (12:51)
[2023-03-29] MEDS ORDERED: NALO4SPR2 (12:54)
[2023-03-29 13:00] VITALS: BP 100/71
[2023-03-29] MEDS ORDERED: POTASSIUM EFFERVESENT TAB 25 MEQ PO ONE (14:00)
== END 2023-03-29 13:20 | disposition home or self-care (01) | DRG 194 ==
LOC: EDBD 11:51 → ER 11:51 → TELE 14:39 → TELE-CENTR 03-21 12:51
PROVIDERS: ADMIT Internal Medicine; ATTEND Nurse Practitioner
PROC: 4B02XTZ Measurement of Cardiac Defibrillator, External Approach (ICD-10-PCS; principal; 2023-03-20)
DX: I13.0 Hypertensive heart and chronic kidney disease with heart failure and stage 1 through stage 4 chronic kidney disease, or unspecified chronic kidney disease (principal); N17.0 Acute kidney failure with tubular necrosis; I21.A1 Myocardial infarction type 2; I27.21 Secondary pulmonary arterial hypertension; R18.8 Other ascites; D63.1 Anemia in chronic kidney disease; N18.4 Chronic kidney disease, stage 4 (severe); I42.8 Other cardiomyopathies; I50.43 Acute on chronic combined systolic (congestive) and diastolic (congestive) heart failure; E11.22 Type 2 diabetes mellitus with diabetic chronic kidney disease; E87.6 Hypokalemia; I48.0 Paroxysmal atrial fibrillation; E11.65 Type 2 diabetes mellitus with hyperglycemia; G47.33 Obstructive sleep apnea (adult) (pediatric); J44.9 Chronic obstructive pulmonary disease, unspecified; R31.9 Hematuria, unspecified; R79.89 Other specified abnormal findings of blood chemistry; I08.1 Rheumatic disorders of both mitral and tricuspid valves; I25.10 Atherosclerotic heart disease of native coronary artery without angina pectoris; M10.9 Gout, unspecified; N39.0 Urinary tract infection, site not specified; Z79.899 Other long term (current) drug therapy; Z86.73 Personal history of transient ischemic attack (TIA), and cerebral infarction without residual deficits; Z79.01 Long term (current) use of anticoagulants; Z95.810 Presence of automatic (implantable) cardiac defibrillator; Z91.199 Patient's noncompliance with other medical treatment and regimen due to unspecified reason; Z87.891 Personal history of nicotine dependence; I25.2 Old myocardial infarction
CPT/HCPCS: 36415; 71045; 74018; 74176; 76700; 76705; 80048; 80053; 80061; 80307; 81001; 82570; 83735; 83880; 84156; 84300; 84443; 84484; 85014; 85018; 85025; 85379; 85610; 85730; 87081; 87086; 93005; 93306; 93970; 96372; 96374; 99291; G0378; J0696; J2405; J3490; P9047

== ENCOUNTER 2023-07-03 20:48 | Inpatient (IN) | payer MEDICAID ==
[~2023-07-03] VITALS: Ht 167.6 cm; Wt 95.4 kg
[~2023-07-03 20:48] MED LIST changes: -ALLO100T PO; +AMIO200T33 PO; +APIX5TAB PO; +BUMEX2MG PO; +DOCU-265 PO; -FURO40TA4 PO; +METO2.5T PO; +NALO4SPR2; -SACU1TAB PO; -WARF5TAB71 PO
[2023-07-03 21:44] VITALS: PULSE 114; RESP 24; O2SAT 86
[2023-07-03 22:07] LABS: Hemoglobin 10.8 g/dL (13.5-17.5); White Blood Cell 9.3 10^3/uL (4.4-10.8)
[2023-07-03 22:09] LABS: Hematocrit 35.5 % (41.0-53.0); Mean Corpuscular Hemoglobin 21.5 pg (28.0-32.0); Mean Corpuscular Hgb Conc. 30.6 g/dL (32.0-36.0); Mean Corpuscular Volume 70.2 fL (80.0-100.0); Red Blood Cells 5.05 10^6/uL (4.5-5.90)
[2023-07-03 22:16] LABS: Band Neutrophils % (manual) 0; Basophils % (manual) 0 (0.0-2.0); Blast Cells 0; Metamyelocytes % 0; Myelocytes % 0; Promyelocytes % 0; Reactive Lymphocytes 0
[2023-07-03 22:21] LABS: Alanine Aminotransferase 30 U/L (7-40); Albumin 3.7 g/dL (3.2-4.8); Alkaline Phosphatase 111 U/L (46-116); Aspartate Aminotransferase 32 U/L (13-40); Bilirubin, Total 1.3 mg/dL (0.2-1.0); Blood Urea Nitrogen 64 mg/dL (9-23); Calcium 8.7 mg/dL (8.7-10.4); Chloride 98 mmol/L (98-107); Glucose 87 mg/dL (74-106); Magnesium 2.3 mg/dL (1.6-2.6); Potassium 4.2 mmol/L (3.5-5.1); Sodium 138 mmol/L (136-145); Total Protein 6.8 g/dL (5.7-8.2)
[2023-07-03 22:24] LABS: INR 1.17 (0.9-1.15); Partial Thromboplastin Time 26.5 SEC (24.5-34.5); Prothrombin Time 12.2 sec (9.3-11.8)
[2023-07-03 22:30] LABS: Anisocytosis Slight; Eosinophils % (manual) 23 (0-7); Hypochromia Moderate; Lymphocytes % (manual) 15 (10.0-50.0); Monocytes % (manual) 8 (0-12); Platelet Estimate Adequate
[2023-07-03 22:31] LABS: Ovalocytes FEW; Target Cell FEW; Tear Drop Cells FEW
[2023-07-04] VITALS (13 sets, daily range): BP systolic 99–131; BP diastolic 64–104; PULSE 80–83; RESP 12–23; TEMP 97.8–98; O2SAT 90–99
[2023-07-04] MEDS ORDERED: ONDANSETRON HCL 4 MG/2 ML VIAL IV PRN (02:30)
[2023-07-04] MEDS ORDERED: ACETAMINOPHEN 325 MG TAB PO PRN (02:30)
[2023-07-04 05:52] LABS: Urine Amorphous Crystal FEW /hpf (None Seen); Urine Bacteria FEW /hpf (None Seen); Urine Blood 1+ /uL (Negative); Urine Clarity HAZY (Clear); Urine Color Yellow (Yellow); Urine Hyaline Cast FEW /lpf (0 - 2); Urine Protein, UAD 2+ (Negative); Urine Specific Gravity 1.015 (1.001-1.035); Urine Urobilinogen Normal (Negative); Urine WBC 50 /hpf (0 - 3); Urine pH 5.5 (5.0-8.0)
[2023-07-04] MEDS ORDERED: LIDOCAINE 2%HCL (LOCAL ANESTH.) INJ 20ML MDV ONE (08:08)
[2023-07-04] MEDS ORDERED: MIDAZOLAM HCL 2MG/2ML 2ml VIAL (1mg/ml) ONE (08:14)
[2023-07-04] MEDS ORDERED: fentaNYL CITRATE 100 MCG/2 ML VL ONE (08:14)
[2023-07-04] MEDS ORDERED: diphenhdrAMINE HCL 50 MG/1 ML VL ONE (08:26)
[2023-07-04] MEDS ORDERED: ceFAZolin 1GM/50ML 50 ML IV ONE (08:29)
[2023-07-04] MEDS ORDERED: EPINEPHrine HCL 1 MG/10 ML SYRG ONE (09:32)
[2023-07-04] MEDS ORDERED: ATROPINE SULF 1 MG/10ml SYR ONE (09:32)
[2023-07-04] MEDS: ASPirin 81 mg TAB PO SCH (10:56)
[2023-07-04] MEDS: PANTOPRAZOLE 40 MG TAB PO SCH (10:56)
[2023-07-04] MEDS: FUROSEMIDE 40 MG TAB PO SCH (10:56)
[2023-07-04] MEDS: AMIODARONE HCL 200 MG TAB PO SCH ×2 (10:57→21:28)
[2023-07-04] MEDS: CARVEDILOL 12.5 MG TAB PO SCH ×2 (10:57→21:34)
[2023-07-04] MEDS ORDERED: diphenhdrAMINE HCL 50 MG/1 ML VL IV ONE (16:30)
[2023-07-04] MEDS: diphenhdrAMINE HCL 25 MG CAP PO PRN (21:28)
[2023-07-04] MEDS ORDERED: ATORVASTATIN 20 MG TAB PO SCH (22:00)
[2023-07-05 05:00] VITALS: BP 117/79; PULSE 81; RESP 18; TEMP 97.7; O2SAT 95
[2023-07-05 06:39] LABS: Hematocrit 34.7 % (41.0-53.0); Hemoglobin 10.4 g/dL (13.5-17.5); Mean Corpuscular Hemoglobin 21.4 pg (28.0-32.0); Mean Corpuscular Volume 71.4 fL (80.0-100.0); Red Blood Cells 4.86 10^6/uL (4.5-5.90); White Blood Cell 9.1 10^3/uL (4.4-10.8)
[2023-07-05 06:50] LABS: Red Cell Distribution Width 24.6 % (11.8-14.3)
[2023-07-05 06:52] LABS: Band Neutrophils % (manual) 0; Basophils % (manual) 0 (0.0-2.0); Blast Cells 0; Metamyelocytes % 0; Myelocytes % 0; Promyelocytes % 0; Reactive Lymphocytes 0
[2023-07-05] MEDS ORDERED: SODIUM CHL 0.9% 1000 ML BAG XX ONE (07:00)
[2023-07-05 07:03] LABS: Alanine Aminotransferase 32 U/L (7-40); Albumin 3.4 g/dL (3.2-4.8); Alkaline Phosphatase 93 U/L (46-116); Anion Gap 11.9 (5-15); Aspartate Aminotransferase 36 U/L (13-40); BUN/Creatinine Ratio 9.5 (10.0-20.0); Calcium 8.3 mg/dL (8.5-10.1); Carbon Dioxide 26.1 mmol/L (20-30); Chloride 101 mmol/L (98-107); Glucose 83 mg/dL (74-106); Potassium 4.2 mmol/L (3.5-5.1); Sodium 139 mmol/L (136-145)
[2023-07-05 07:04] LABS: Bilirubin, Total 1.1 mg/dL (0.2-1.0); Total Protein 6.2 g/dL (5.7-8.2)
[2023-07-05 07:08] LABS: Blood Urea Nitrogen 77 mg/dL (9-23)
[2023-07-05 08:00] VITALS: BP 126/84; PULSE 80; RESP 20; TEMP 97.6; O2SAT 92
[2023-07-05 09:00] VITALS: BP 126/84; PULSE 80; RESP 20; TEMP 97.6; O2SAT 91
[2023-07-05] MEDS: PANTOPRAZOLE 40 MG TAB PO SCH (09:56)
[2023-07-05] MEDS: AMIODARONE HCL 200 MG TAB PO SCH (09:56)
[2023-07-05] MEDS: ASPirin 81 mg TAB PO SCH (09:56)
[2023-07-05] MEDS: FUROSEMIDE 40 MG TAB PO SCH (09:57)
[2023-07-05] MEDS: CARVEDILOL 12.5 MG TAB PO SCH (09:57)
[2023-07-05] MEDS: diphenhdrAMINE HCL 25 MG CAP PO PRN (12:14)
[2023-07-05 13:02] LABS: Eosinophils % (manual) 27 (0-7); Lymphocytes % (manual) 16 (10.0-50.0); Monocytes % (manual) 8 (0-12); Platelet Estimate Adequate
[2023-07-05 16:10] VITALS: BP 115/68; PULSE 79
[2023-07-05] MEDS ORDERED: EPOETIN ALFA-EPBX 4,000 UNIT/ML VIAL SC ONE (21:00)
== END 2023-07-05 16:58 | disposition home or self-care (01) | DRG 175 ==
LOC: ER 20:48 → TELE 07-04 02:33 → TELE-WESTW 07-04 17:47
PROVIDERS: ADMIT Internal Medicine Pulmonary Disease; ATTEND Internal Medicine
PROC: 02583ZZ Destruction of Conduction Mechanism, Percutaneous Approach (ICD-10-PCS; principal; 2023-07-04)
PROC: 4A023FZ Measurement of Cardiac Rhythm, Percutaneous Approach (ICD-10-PCS; 2023-07-04)
PROC: 4A0234Z Measurement of Cardiac Electrical Activity, Percutaneous Approach (ICD-10-PCS; 2023-07-04)
PROC: 02K83ZZ Map Conduction Mechanism, Percutaneous Approach (ICD-10-PCS; 2023-07-04)
PROC: 4B02XTZ Measurement of Cardiac Defibrillator, External Approach (ICD-10-PCS; 2023-07-04)
PROC: 5A1D70Z Performance of Urinary Filtration, Intermittent, Less than 6 Hours Per Day (ICD-10-PCS; 2023-07-05)
DX: I48.11 Longstanding persistent atrial fibrillation (principal); I13.2 Hypertensive heart and chronic kidney disease with heart failure and with stage 5 chronic kidney disease, or end stage renal disease; N18.6 End stage renal disease; R18.8 Other ascites; E11.22 Type 2 diabetes mellitus with diabetic chronic kidney disease; D63.1 Anemia in chronic kidney disease; E21.1 Secondary hyperparathyroidism, not elsewhere classified; E66.9 Obesity, unspecified; I50.22 Chronic systolic (congestive) heart failure; M10.9 Gout, unspecified; J44.9 Chronic obstructive pulmonary disease, unspecified; F15.10 Other stimulant abuse, uncomplicated; E78.5 Hyperlipidemia, unspecified; I25.10 Atherosclerotic heart disease of native coronary artery without angina pectoris; Z79.891 Long term (current) use of opiate analgesic; Z82.49 Family history of ischemic heart disease and other diseases of the circulatory system; Z79.899 Other long term (current) drug therapy; Z79.01 Long term (current) use of anticoagulants; Z68.33 Body mass index [BMI] 33.0-33.9, adult; Z91.148 Patient's other noncompliance with medication regimen for other reason
CPT/HCPCS: 36415; 71045; 76705; 80053; 81001; 83735; 83880; 84484; 85007; 85027; 85610; 85730; 87081; 90935; 93005; 93613; 93619; 93650; G0378; J0690; J1642; J2250; J2405